=== PATIENT | female | born 1990 | race Caucasian/White ===

== ENCOUNTER 2016-06-04 09:51 | Emergency (ER) | payer OTHER ==
[2016-06-04] MEDS ORDERED: BENZOCAIN/BENZALKONM ORAL GEL 12 GM TUBE MM PRN (10:17)
[2016-06-04] MEDS ORDERED: TRIAMCINOLONE ACET 0.1% ORAL PASTE 5 GM TUBE MUCOUS MEM STA (10:19)
--- NOTE | 2016-06-04 10:24 | ED ---
ENT HPI - General Chief complaint: Dental/Oral Stated complaint: tounge swollen Time Seen by Provider: 06/04/16 10:08 Source: patient Mode of arrival: ambulatory Limitations: no limitations - History of Present Illness Initial comments: This is a 25-year-old female with a history of methamphetamine abuse who presents emergency department for tongue pain and swelling. She states that the last time she used meth was last night. She states that the pain in her tongue hurts mostly on the right side and radiates down to the back of her throat. She states that she's had this once before however did not seek any medical treatment went away on its own. Patient denies any fevers or chills. No difficulty with swallowing. No shortness of breath. She complains mostly of pain in her mouth. No other complaints. - Related Data Home Medications Medication Instructions Recorded Confirmed diphenhydrAMINE [Benadryl] 50 mg PO HS PRN 03/13/16 06/04/16 Previous Rx's Medication Instructions Recorded HYDROcodone/APAP 5-325MG [[place] 1 tab PO Q6HR PRN #15 tab 06/04/16 5-325] Triamcinolone 0.1% Paste [Oralone 1 applic MUCOUS MEM PC-TID #30 gm 06/04/16 0.1% Paste] Allergies Allergy/AdvReac Type Severity Reaction Status Date / Time Penicillins Allergy Unknown Verified 06/04/16 10:18 Childhood sulfamethoxazole Allergy Unknown Verified 06/04/16 10:18 [From Bactrim] Childhood trimethoprim [From Bactrim] Allergy Unknown Verified 06/04/16 10:18 Childhood Review of Systems ROS Statement: Those systems with pertinent positive or pertinent negative responses have been documented in the HPI. ROS Other: All systems not noted in ROS Statement are negative. Past Medical History Additional Past Medical History / Comment(s): migraine, hives, sinus problems History of Any Multi-Drug Resistant Organisms: None Reported Past Surgical History: Cholecystectomy Past Psychological History: Anxiety Smoking Status: Current every day smoker Past Alcohol Use History: Occasional Past Drug Use History: Methamphetamine General Exam - General Exam Comments Initial Comments: Constitutional: Awake alert Appears comfortable Head: Normocephalic atraumatic Eyes: no conjunctival injection No scleral icterus EOMI ENT: The patient has some mild swelling of her tongue. Oropharynx is patent and without any swelling. There are 2 or 3 at this ulcer is on the right side of her tongue. No other lesions are seen throughout her oral pharynx, TMs are clear bilaterally Neck: No JVD Supple Heart: Regular rate rhythm normal S1-S2 no murmurs Lungs: Clear to auscultation bilaterally No wheezing No rales Abdomen: Soft nondistended nontender Extremities: Non edematous DP pulses intact Radial pulses intact Neuro: A&Ox3 No focal neurologic deficits Psych: Appropriate mood and affect Limitations: no limitations Course Vital Signs 06/04/16 10:04 Temperature 98.3 F Pulse Rate 84 Respiratory 18 Rate Blood Pressure 134/80 O2 Sat by Pulse 99 Oximetry Medical Decision Making - Medical Decision Making Patient presented for mouth pain. She has multiple aphthous ulcers and stomatitis. She was given cool solution and Trental cream emergency department. She had minimal improvement. She was given Toradol. She then was going to be given morphine however her family was not here and she rides and thus I told her that we needed to wait. She became very upset. I told her that if she waited for a ride caregiver to her. She called her friend mother who is going to pick her up. Otherwise nothing else to do. I advised the patient to stop doing meth and follow-up with her primary doctor. She'll return if she has worsening symptoms. She'll be sent home with pain medication , steroid cream, and Magic mouthwash. Disposition Clinical Impression: Stomatitis, Methamphetamine abuse Disposition: HOME SELF-CARE Condition: Stable Instructions: Canker Sores (ED), Gingivostomatitis (ED) Prescriptions: HYDROcodone/APAP 5-325MG [[place] 5-325] 1 tab PO Q6HR PRN #15 tab PRN Reason: Pain Triamcinolone 0.1% Paste [Oralone 0.1% Paste] 1 applic MUCOUS MEM PC-TID #30 gm Referrals: Davie Garza DO [Primary Care Provider] - 1-2 days
[2016-06-04] MEDS ORDERED: MAG HYDROX/AL HYDROX/SIMETH 30 ML, diphenhydrAMINE ELIXIR 75 MG, LIDOCAINE VISCOUS 30 ML PO STA ×3 (10:28)
[2016-06-04] MEDS ORDERED: MORPHINE SULFATE 10 MG/ML SYRINGE IM STA (11:16)
[2016-06-04] MEDS ORDERED: KETOROLAC 30 MG/ML 1 ML VIAL IM STA (11:16)
[2016-06-04] MEDS ORDERED: MORPHINE SULFATE 4 MG/ML SYRINGE IM STA (11:45)
[2016-06-04 12:40] VITALS: BP 113/80; PULSE 68; RESP 16; TEMP 97.3
== END 2016-06-04 12:40 | disposition home or self-care (01) ==
LOC: EC 09:51
DX: K12.1 Other forms of stomatitis (principal); K12.0 Recurrent oral aphthae; F15.10 Other stimulant abuse, uncomplicated; F17.200 Nicotine dependence, unspecified, uncomplicated; Z88.1 Allergy status to other antibiotic agents; Z88.0 Allergy status to penicillin; Z88.2 Allergy status to sulfonamides
CPT/HCPCS: 99283; 96372; J2270; J1885

== ENCOUNTER 2016-09-27 20:03 | Emergency (ER) | payer OTHER ==
[2016-09-27 20:10] VITALS: BP 112/64; PULSE 80; RESP 18; TEMP 98.3
--- NOTE | 2016-09-27 20:50 | ED ---
General Adult HPI - General Chief complaint: Fall Stated complaint: abdominal pain/12 wks preg Time Seen by Provider: 09/27/16 20:25 Source: patient, RN notes reviewed, old records reviewed Mode of arrival: ambulatory Limitations: no limitations - History of Present Illness Initial comments: Chief complaint history of present illness this is a 25-year-old female whose here because yesterday while reaching into a high cupboard chief fell approximately 6 inches and bumped her abdomen. She is 12 weeks . She is not complaining of any significant discomfort there is no vaginal bleeding. No other problems. - Related Data Home Medications Medication Instructions Recorded Confirmed diphenhydrAMINE [Benadryl] 50 mg PO HS PRN 03/13/16 06/04/16 Previous Rx's Medication Instructions Recorded HYDROcodone/APAP 5-325MG [[place] 1 tab PO Q6HR PRN #15 tab 06/04/16 5-325] Triamcinolone 0.1% Paste [Oralone 1 applic MUCOUS MEM PC-TID #30 gm 06/04/16 0.1% Paste] Allergies Allergy/AdvReac Type Severity Reaction Status Date / Time Penicillins Allergy Unknown Verified 09/27/16 20:06 Childhood sulfamethoxazole Allergy Unknown Verified 09/27/16 20:06 [From Bactrim] Childhood trimethoprim [From Bactrim] Allergy Unknown Verified 09/27/16 20:06 Childhood Review of Systems ROS Statement: Those systems with pertinent positive or pertinent negative responses have been documented in the HPI. Review of systems no headache chest pain shortness breath GI/ problems. All systems are reviewed. Past medical problems significant for migraines, idiopathic hives. Continues to use marijuana. Has done methamphetamine up until proximal one year ago but still has relapses. Strongly encouraged not to do that while . Patient surgeries cholecystectomy, sinus and one as well as adenoids. She's also had ear tubes. Family history significant for grandfather bladder cancer mother had uterine cancer. Other medical problems include diabetes. She has ALLERGIES to penicillin and sulfa. She does smoke strongly encouraged to stop while and thereafter. Denies alcohol use. ROS Other: All systems not noted in ROS Statement are negative. Past Medical History Additional Past Medical History / Comment(s): migraine, hives, sinus problems History of Any Multi-Drug Resistant Organisms: None Reported Past Surgical History: Cholecystectomy Past Psychological History: Anxiety Smoking Status: Current every day smoker Past Alcohol Use History: Occasional Past Drug Use History: Marijuana, Methamphetamine General Exam - General Exam Comments Initial Comments: General: The patient is awake and alert, in no distress, and does not appear acutely ill. Vital signs shows temperature 98.3 pulse 80 respiratory rate 18 pulse ox 99% room air blood pressure 112/64 Eye: Pupils are equal, round and reactive to light, extra-ocular movements are intact ; there is normal conjunctiva bilaterally. No signs of icterus. Ears, nose, mouth and throat: There are moist mucous membranes Neck: No neck pain, full range of motion. Cardiovascular: There is a regular rate and rhythm. No murmur, rub or gallop is appreciated. Respiratory: Lungs are clear to auscultation, respirations are non-labored, breath sounds are equal. No wheezes, stridor, rales, or rhonchi. Gastrointestinal: Soft, non-distended, non-tender abdomen without masses or organomegaly noted. There is no rebound or guarding present. No CVA tenderness. Bowel sounds are unremarkable. Back: No back pain with movement. Musculoskeletal: All extremities within normal limits. No numbness no tingling no deficits. Neurological: Cranial nerves II through XII are intact. Skin: Several bruises nonspecific. Limitations: no limitations Course Vital Signs 09/27/16 20:06 Temperature 98.3 F Pulse Rate 80 Respiratory 18 Rate Blood Pressure 112/64 O2 Sat by Pulse 99 Oximetry Medical Decision Making - Medical Decision Making Medical decision-making. The patient does not have any abdominal pain. She does not have any lower abdominal cramping. There is not been any vaginal bleeding. She did have an ultrasound [facility] soon after she found out she was and everything both normal bedtime. At this time the patient will be told to follow-up with her OB she's been assigned. Tylenol for pain. Return emergency room if she has cramping or bleeding. Disposition Clinical Impression: First trimester Disposition: HOME SELF-CARE Condition: Good Instructions: First Trimester (ED) Additional Instructions: Take Tylenol for pain. Follow-up with your family physician, OB. Return emergency room if he have lower abdominal cramping or vaginal bleeding. Referrals: Davie Garza DO [Primary Care Provider] - 1-2 days Time of Disposition: 20:50
== END 2016-09-27 21:00 | disposition home or self-care (01) ==
LOC: EC 20:03
DX: O99.89 Other specified diseases and conditions complicating pregnancy, childbirth and the puerperium (principal); R10.9 Unspecified abdominal pain; Z3A.12 12 weeks gestation of pregnancy; F17.200 Nicotine dependence, unspecified, uncomplicated; Z88.0 Allergy status to penicillin; Z88.2 Allergy status to sulfonamides; W01.0XXA Fall on same level from slipping, tripping and stumbling without subsequent striking against object, initial encounter
CPT/HCPCS: 99284

== ENCOUNTER → 2017-05-19 | Outpatient (CLI) | payer OTHER ==
[2017-05-19 10:51] LABS: INR 1.1 (<1.2); Prothrombin Time 10.9 sec (9.0-12.0)
[2017-05-19 11:04] LABS: Albumin 4.8 g/dL (3.5-5.0); Bilirubin, Delta 0.4 mg/dL (0.0-0.2); Bilirubin,Unconjugated 0.1 mg/dL (0.0-1.1); Total Bilirubin 0.5 mg/dL (0.2-1.3); Total Protein 9.1 g/dL (6.3-8.2)
[2017-05-19 11:19] LABS: Basophils # (A) 0.1 k/uL (0-0.2); Basophils % (A) 1 %; Eosinophils # (A) 0.5 k/uL (0-0.7); Eosinophils % (A) 5 %; HCT 40.6 % (34.0-46.0); HGB 12.8 gm/dL (11.4-16.0); Lymphocytes # (A) 3.9 k/uL (1.0-4.8); Lymphocytes % (A) 38 %; MCH 27.8 pg (25.0-35.0); MCHC 31.4 g/dL (31.0-37.0); MCV 88.4 fL (80.0-100.0); Mean Platelet Volume 6.6; Monocytes # (A) 0.5 k/uL (0-1.0); Monocytes % (A) 5 %; Neutrophils # (A) 5.1 k/uL (1.3-7.7); Neutrophils % (A) 50 %; Platelet Count 441 k/uL (150-450); RBC 4.59 m/uL (3.80-5.40); RDW 15.2 % (11.5-15.5); WBC 10.4 k/uL (3.8-10.6)
[2017-05-20 16:27] LABS: HCV Quant Log <1.08 (<1.08); HCV Quantitative Result <12 IU/mL (<12)
== END | disposition home or self-care (01) ==
LOC: LABWHC1 10:11
PROVIDERS: ATTEND Physician Assistant
DX: B18.2 Chronic viral hepatitis C (principal)
CPT/HCPCS: 36415; 80076; 85025; 85610; 86708; 87522

== ENCOUNTER → 2017-06-10 | Outpatient (CLI) | payer OTHER ==
--- NOTE | 2017-06-10 07:58 | US ---
EXAMINATION TYPE: US liver DATE OF EXAM: 06/10/2017 COMPARISON: NONE CLINICAL HISTORY: B18.2 Chronic viral hep c. no complaints of pain EXAM MEASUREMENTS: Liver Length: 17.4 cm CBD: 0.4cm Right Kidney: 11.5 x 4.4 x 5.8 cm Pancreas: wnl Liver: upper limits in size, 1.6 x 0.7 x 0.9cm hypoechoic solid tissue or mass with the left lobe. Appropriate flow with the portal vein. Gallbladder: Surgically absent CBD: wnl Right Kidney: wnl IMPRESSION: 1. Findings suspicious for left lobe liver lesion which could be or adequately evaluated with CT scan with contrast.
== END | disposition home or self-care (01) ==
LOC: RADUSWWP 07:30
DX: B18.2 Chronic viral hepatitis C (principal)
CPT/HCPCS: 76705

== ENCOUNTER 2017-11-15 14:12 | Inpatient (IN) | payer MEDICAID, OTHER ==
[2017-11-15] MEDS ORDERED: ALPRAZolam 1 MG TAB PO STA (14:52)
--- NOTE | 2017-11-15 14:52 | ED ---
General Adult HPI - General Chief complaint: Psychiatric Symptoms Stated complaint: Mental Health Source: patient Mode of arrival: ambulatory Limitations: no limitations - History of Present Illness Initial comments: Dictation was produced using [employer] dictation software. please excuse any grammatical, word or spelling errors. Chief Complaint: 19-year-old female brought in by petition from the mother for mental illness and suicidal ideation. History of Present Illness: Patient was signed by mother for suicidal ideation. Patient states she does not feel actively suicidal at this time. States that sometimes she wants to commit suicide but not having any thoughts of suicidal ideation at this time. Patient states she would either overdose or cut her wrist. Denies any homicidal ideation. Denies any visual or auditory hallucinations. Patient is an active illicit drug abuser. Last use of methamphetamines was earlier today. The ROS documented in this emergency department record has been reviewed and confirmed by me. Those systems with pertinent positive or negative responses have been documented in the HPI. All other systems are other negative and/or noncontributory. - Related Data Home Medications Medication Instructions Recorded Confirmed Etonogestrel [Nexplanon] 68 mg SQ ONCE 11/15/17 11/15/17 Allergies Allergy/AdvReac Type Severity Reaction Status Date / Time Penicillins Allergy Unknown Verified 11/16/17 17:40 Childhood sulfamethoxazole Allergy Unknown Verified 11/16/17 17:40 [From Bactrim] Childhood trimethoprim [From Bactrim] Allergy Unknown Verified 11/16/17 17:40 Childhood Review of Systems ROS Statement: Those systems with pertinent positive or pertinent negative responses have been documented in the HPI. ROS Other: All systems not noted in ROS Statement are negative. Past Medical History Past Medical History: Liver Disease Additional Past Medical History / Comment(s): migraine, hives, sinus problems, hepatitis A and C, 2 spontaneous vaginal deliveries History of Any Multi-Drug Resistant Organisms: None Reported Past Surgical History: Cholecystectomy Past Anesthesia/Blood Transfusion Reactions: No Reported Reaction Past Psychological History: Anxiety, Depression Smoking Status: Current every day smoker Past Alcohol Use History: Occasional Past Drug Use History: Heroin, Marijuana, Methamphetamine, Prescription Drug Abuse - Past Family History Father Family Medical History: Unable to Obtain Mother Family Medical History: Cancer General Exam - General Exam Comments Initial Comments: PHYSICAL EXAM: General Impression: Alert and oriented x3, not in acute distress HEENT: Normocephalic atraumatic, extra-ocular movements intact, pupils equal and reactive to light bilaterally, mucous membranes moist. Cardiovascular: Heart regular rate and rhythm, S1&S2 audible, no murmurs, rubs or gallops Chest: Lungs clear to auscultation bilaterally, no rhonchi, no wheeze, no rales Abdomen: Bowel sounds present, abdomen soft, non-tender, non-distended, no organomegaly Musculoskeletal: Pulses present and equal in all extremities, no peripheral edema Motor: Power 5/5 bilaterally, no focal deficits noted Neurological: CN II-XII grossly intact, no focal motor or sensory deficits noted Skin: Intact with no visualized rashes Psych: Agitated, poor eye contact Limitations: no limitations Course Vital Signs 11/15/17 11/15/17 11/15/17 14:13 18:12 21:44 Temperature 98.1 F Pulse Rate 114 H 98 Respiratory 20 16 15 Rate Blood Pressure 115/73 119/79 O2 Sat by Pulse 97 98 Oximetry 11/16/17 07:28 Temperature 99.2 F Pulse Rate 70 Respiratory 18 Rate Blood Pressure 101/59 O2 Sat by Pulse 94 L Oximetry Medical Decision Making - Medical Decision Making ED course: 27-year-old female past medical history of depression, anxiety and illicit drug use presents for petition for suicidal ideation. Signs upon arrival shows heart rate of 114, pulse vital signs within normal limits. She appears mildly agitated.Rapid urine drug screen obtained. Patient' s positive for amphetamines, methamphetamine, benzodiazepines and marijuana. Patient appears stable at this time. She does appear mildly psychotic however she is medically cleared for EPS evaluation. Pending EPS recommendations. EPS evaluated patient and recommended inpatient transfer to psychiatric facility. - Lab Data Result diagrams: 11/15/17 17:08 11/15/17 17:08 Lab Results 11/15/17 11/15/17 11/15/17 Range/Units 14:05 14:05 14:05 WBC (3.8-10.6) k/uL RBC (3.80-5.40) m/uL Hgb (11.4-16.0) gm/dL Hct (34.0-46.0) % MCV (80.0-100.0) fL MCH (25.0-35.0) pg MCHC (31.0-37.0) g/dL RDW (11.5-15.5) % Plt Count (150-450) k/uL Neutrophils % % Lymphocytes % % Monocytes % % Eosinophils % % Basophils % % Neutrophils # (1.3-7.7) k/uL Lymphocytes # (1.0-4.8) k/uL Monocytes # (0-1.0) k/uL Eosinophils # (0-0.7) k/uL Basophils # (0-0.2) k/uL Sodium (137-145) mmol/L Potassium (3.5-5.1) mmol/L Chloride (98-107) mmol/L Carbon Dioxide (22-30) mmol/L Anion Gap mmol/L BUN (7-17) mg/dL Creatinine (0.52-1.04) mg/dL Est GFR (CKD-EPI)AfAm (>60 ml/min/1.73 sqM) Est GFR (CKD-EPI)NonAf (>60 ml/min/1.73 sqM) Glucose (74-99) mg/dL Estimated Ave Glu mg/dL Hemoglobin A1c (4.0-6.0) % Calcium (8.4-10.2) mg/dL AST (14-36) U/L ALT (9-52) U/L Triglycerides (<150) mg/dL Cholesterol (<200) mg/dL LDL Cholesterol, Calc (0-99) mg/dL HDL Cholesterol (40-60) mg/dL TSH (0.465-4.680) mIU/L Urine Color Yellow Urine Appearance Cloudy H (Clear) Urine pH 5.5 (5.0-8.0) Ur Specific [place] 1.025 (1.001-1.035) Urine Protein Trace H (Negative) Urine Glucose (UA) Negative (Negative) Urine Ketones Trace H (Negative) Urine Blood Negative (Negative) Urine Nitrite Negative (Negative) Urine Bilirubin Negative (Negative) Urine Urobilinogen 2.0 (<2.0) mg/dL Ur Leukocyte Esterase Small H (Negative) Urine RBC 7 H (0-5) /hpf Urine WBC 9 H (0-5) /hpf Ur Squamous Epith Cells 18 H (0-4) /hpf Urine Bacteria Rare H (None) /hpf Urine Mucus Few H (None) /hpf Urine HCG, Qual Not Detected (Not Detectd) Urine Opiates Screen Not Detected (NotDetected) Ur Oxycodone Screen Not Detected (NotDetected) Urine Methadone Screen Not Detected (NotDetected) Ur Propoxyphene Screen Not Detected (NotDetected) Ur Barbiturates Screen Not Detected (NotDetected) U Tricyclic Antidepress Not Detected (NotDetected) Ur Phencyclidine Scrn Not Detected (NotDetected) Ur Amphetamines Screen Detected H (NotDetected) U Methamphetamines Scrn Detected H (NotDetected) U Benzodiazepines Scrn Detected H (NotDetected) Urine Cocaine Screen Not Detected (NotDetected) U Marijuana (THC) Screen Detected H (NotDetected) 11/15/17 11/15/17 11/15/17 Range/Units 17:08 17:08 17:08 WBC 9.0 (3.8-10.6) k/uL RBC 4.60 (3.80-5.40) m/uL Hgb 13.4 (11.4-16.0) gm/dL Hct 40.1 (34.0-46.0) % MCV 87.1 (80.0-100.0) fL MCH 29.0 (25.0-35.0) pg MCHC 33.3 (31.0-37.0) g/dL RDW 13.2 (11.5-15.5) % Plt Count 261 (150-450) k/uL Neutrophils % 45 % Lymphocytes % 41 % Monocytes % 6 % Eosinophils % 4 % Basophils % 1 % Neutrophils # 4.1 (1.3-7.7) k/uL Lymphocytes # 3.7 (1.0-4.8) k/uL Monocytes # 0.5 (0-1.0) k/uL Eosinophils # 0.3 (0-0.7) k/uL Basophils # 0.1 (0-0.2) k/uL Sodium 140 (137-145) mmol/L Potassium 3.5 (3.5-5.1) mmol/L Chloride 104 (98-107) mmol/L Carbon Dioxide 27 (22-30) mmol/L Anion Gap 9 mmol/L BUN 14 (7-17) mg/dL Creatinine 0.73 (0.52-1.04) mg/dL Est GFR (CKD-EPI)AfAm >90 (>60 ml/min/1.73 sqM) Est GFR (CKD-EPI)NonAf >90 (>60 ml/min/1.73 sqM) Glucose 104 H (74-99) mg/dL Estimated Ave Glu mg/dL 111 Hemoglobin A1c 5.5 (4.0-6.0) % Calcium 9.4 (8.4-10.2) mg/dL AST (14-36) U/L ALT (9-52) U/L Triglycerides (<150) mg/dL Cholesterol (<200) mg/dL LDL Cholesterol, Calc (0-99) mg/dL HDL Cholesterol (40-60) mg/dL TSH (0.465-4.680) mIU/L Urine Color Urine Appearance (Clear) Urine pH (5.0-8.0) Ur Specific [place] (1.001-1.035) Urine Protein (Negative) Urine Glucose (UA) (Negative) Urine Ketones (Negative) Urine Blood (Negative) Urine Nitrite (Negative) Urine Bilirubin (Negative) Urine Urobilinogen (<2.0) mg/dL Ur Leukocyte Esterase (Negative) Urine RBC (0-5) /hpf Urine WBC (0-5) /hpf Ur Squamous Epith Cells (0-4) /hpf Urine Bacteria (None) /hpf Urine Mucus (None) /hpf Urine HCG, Qual (Not Detectd) Urine Opiates Screen (NotDetected) Ur Oxycodone Screen (NotDetected) Urine Methadone Screen (NotDetected) Ur Propoxyphene Screen (NotDetected) Ur Barbiturates Screen (NotDetected) U Tricyclic Antidepress (NotDetected) Ur Phencyclidine Scrn (NotDetected) Ur Amphetamines Screen (NotDetected) U Methamphetamines Scrn (NotDetected) U Benzodiazepines Scrn (NotDetected) Urine Cocaine Screen (NotDetected) U Marijuana (THC) Screen (NotDetected) 11/15/17 11/15/17 Range/Units 17:08 17:08 WBC (3.8-10.6) k/uL RBC (3.80-5.40) m/uL Hgb (11.4-16.0) gm/dL Hct (34.0-46.0) % MCV (80.0-100.0) fL MCH (25.0-35.0) pg MCHC (31.0-37.0) g/dL RDW (11.5-15.5) % Plt Count (150-450) k/uL Neutrophils % % Lymphocytes % % Monocytes % % Eosinophils % % Basophils % % Neutrophils # (1.3-7.7) k/uL Lymphocytes # (1.0-4.8) k/uL Monocytes # (0-1.0) k/uL Eosinophils # (0-0.7) k/uL Basophils # (0-0.2) k/uL Sodium (137-145) mmol/L Potassium (3.5-5.1) mmol/L Chloride (98-107) mmol/L Carbon Dioxide (22-30) mmol/L Anion Gap mmol/L BUN (7-17) mg/dL Creatinine (0.52-1.04) mg/dL Est GFR (CKD-EPI)AfAm (>60 ml/min/1.73 sqM) Est GFR (CKD-EPI)NonAf (>60 ml/min/1.73 sqM) Glucose (74-99) mg/dL Estimated Ave Glu mg/dL Hemoglobin A1c (4.0-6.0) % Calcium (8.4-10.2) mg/dL AST 32 (14-36) U/L ALT 54 H (9-52) U/L Triglycerides 64 (<150) mg/dL Cholesterol 137 (<200) mg/dL LDL Cholesterol, Calc 66 (0-99) mg/dL HDL Cholesterol 58 (40-60) mg/dL TSH 0.973 (0.465-4.680) mIU/L Urine Color Urine Appearance (Clear) Urine pH (5.0-8.0) Ur Specific [place] (1.001-1.035) Urine Protein (Negative) Urine Glucose (UA) (Negative) Urine Ketones (Negative) Urine Blood (Negative) Urine Nitrite (Negative) Urine Bilirubin (Negative) Urine Urobilinogen (<2.0) mg/dL Ur Leukocyte Esterase (Negative) Urine RBC (0-5) /hpf Urine WBC (0-5) /hpf Ur Squamous Epith Cells (0-4) /hpf Urine Bacteria (None) /hpf Urine Mucus (None) /hpf Urine HCG, Qual (Not Detectd) Urine Opiates Screen (NotDetected) Ur Oxycodone Screen (NotDetected) Urine Methadone Screen (NotDetected) Ur Propoxyphene Screen (NotDetected) Ur Barbiturates Screen (NotDetected) U Tricyclic Antidepress (NotDetected) Ur Phencyclidine Scrn (NotDetected) Ur Amphetamines Screen (NotDetected) U Methamphetamines Scrn (NotDetected) U Benzodiazepines Scrn (NotDetected) Urine Cocaine Screen (NotDetected) U Marijuana (THC) Screen (NotDetected) Disposition Clinical Impression: Acute anxiety Disposition: TRANSFER TO PSYCH HOSP/UNIT Condition: Fair Time of Disposition: 06:55 - Out of Hospital Transfer - Req. Specs Out of Hospital Transfer - Requested Specifics: Psychiatric Non-ICU
[2017-11-15 15:02] LABS: Amphetamine Screen,Urine Detected (NotDetected); Barbiturate Screen,Urine Not Detected (NotDetected); Benzodiazepines Screen,Urine Detected (NotDetected); Cocaine Screen,Urine Not Detected (NotDetected); Methadone Screen, Urine Not Detected (NotDetected); Opiate Screen,Urine Not Detected (NotDetected); Oxycodone Screen, Urine Not Detected (NotDetected); Phencyclidine Screen,Urine Not Detected (NotDetected); Tricyclic Antidepressant,Urine Not Detected (NotDetected); Urn Cannabinoid Scrn Detected (NotDetected)
[2017-11-15 17:17] LABS: Basophils # (A) 0.1 k/uL (0-0.2); Basophils % (A) 1 %; Eosinophils # (A) 0.3 k/uL (0-0.7); Eosinophils % (A) 4 %; HCT 40.1 % (34.0-46.0); HGB 13.4 gm/dL (11.4-16.0); Lymphocytes # (A) 3.7 k/uL (1.0-4.8); Lymphocytes % (A) 41 %; MCHC 33.3 g/dL (31.0-37.0); MCV 87.1 fL (80.0-100.0); Mean Platelet Volume 6.7; Monocytes # (A) 0.5 k/uL (0-1.0); Monocytes % (A) 6 %; Neutrophils # (A) 4.1 k/uL (1.3-7.7); Neutrophils % (A) 45 %; Platelet Count 261 k/uL (150-450); RDW 13.2 % (11.5-15.5)
[2017-11-15 17:21] LABS: Appearance,Urine Cloudy (Clear); Bacteria,Urine Rare /hpf; Bilirubin,Urine Negative (Negative); Blood,Urine Negative (Negative); Color,Urine Yellow; Glucose,Urine (UA) Negative (Negative); Ketones,Urine Trace (Negative); Leukocyte Esterase,Urine Small (Negative); Mucus,Urine Few /hpf; Nitrite,Urine Negative (Negative); PH, Urine 5.5 (5.0-8.0); Protein,Urine Trace (Negative); RBC,Urine 7 /hpf (0-5); Specific Gravity,Urine 1.025 (1.001-1.035); Squamous Epithelial Cell,Urine 18 /hpf (0-4); WBC,Urine 9 /hpf (0-5)
[2017-11-15 17:27] LABS: Anion Gap 9 mmol/L; Blood Urea Nitrogen 14 mg/dL (7-17); Calcium 9.4 mg/dL (8.4-10.2); Carbon Dioxide 27 mmol/L (22-30); Chloride 104 mmol/L (98-107); Glucose 104 mg/dL (74-99); Potassium 3.5 mmol/L (3.5-5.1); Sodium 140 mmol/L (137-145)
[2017-11-16] MEDS ORDERED: ALPRAZolam 1 MG TAB PO STA (07:53)
[2017-11-16] MEDS ORDERED: NICOTINE 21MG/24HR PATCH TRANSDERM STA (13:11)
[2017-11-16] MEDS ORDERED: ZIPRASIDONE 20 MG VIAL IM PRN (17:07)
[2017-11-16] MEDS ORDERED: MAGNESIUM HYDROXIDE 2,400 MG/10 ML CUP PO PRN (17:07)
[2017-11-16] MEDS ORDERED: MAG HYDROX/AL HYDROX/SIMETH 30 ML CUP PO PRN (17:07)
[2017-11-16] MEDS ORDERED: ETONOGESTREL 68 MG SQ SCH (17:15)
[2017-11-16 17:40] VITALS: BMI 26.6
[2017-11-16] MEDS: LORazepam 1 MG TAB PO PRN (18:05)
[2017-11-16 20:19] LABS: Appearance,Urine Cloudy (Clear); Bacteria,Urine Rare /hpf; Bilirubin,Urine Negative (Negative); Blood,Urine Negative (Negative); Color,Urine Yellow; Glucose,Urine (UA) Negative (Negative); Ketones,Urine Negative (Negative); Leukocyte Esterase,Urine Moderate (Negative); Mucus,Urine Rare /hpf; Nitrite,Urine Negative (Negative); PH, Urine 7.5 (5.0-8.0); Protein,Urine Negative (Negative); RBC,Urine 1 /hpf (0-5); Specific Gravity,Urine 1.017 (1.001-1.035); Squamous Epithelial Cell,Urine 15 /hpf (0-4); WBC,Urine 3 /hpf (0-5)
[2017-11-16] MEDS ORDERED: hydrOXYzine PAMOATE 25 MG CAP PO STA (20:38)
[2017-11-17] MEDS: ACETAMINOPHEN TAB 325 MG TAB PO PRN (04:16)
[2017-11-17] MEDS: LORazepam 1 MG TAB PO PRN ×3 (06:01→21:01)
[2017-11-17] MEDS: NICOTINE 21MG/24HR PATCH TRANSDERM SCH (09:01)
[2017-11-17 12:12] LABS: Hemoglobin A1C 5.5 % (4.0-6.0)
[2017-11-17 12:57] LABS: ALT 54 U/L (9-52); AST 32 U/L (14-36)
[2017-11-17] MEDS: hydrOXYzine PAMOATE 25 MG CAP PO PRN ×2 (13:04→21:01)
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
[2017-11-17] MEDS: QUEtiapine 50 MG TAB PO SCH (21:01)
[2017-11-18] MEDS: ACETAMINOPHEN TAB 325 MG TAB PO PRN ×2 (01:29→12:54)
[2017-11-18] MEDS: LORazepam 1 MG TAB PO PRN ×2 (08:57→18:31)
[2017-11-18] MEDS: NICOTINE 21MG/24HR PATCH TRANSDERM SCH (08:58)
--- NOTE | 2017-11-18 10:17 | P.PN ---
Progress Note - Text Interval history: The patient is found in her room she follows me to an interview room. She states she feels very irritable and upset. She states the staff are deliberately not telling her when she has a placement date for rehab. I reviewed the process with her and assured her we would not withhold that information. She remained agitated and terminated the session early. Mental status exam: The patient is alert she is irritable she is demonstrating a labile affect. She was tearful throughout the session. She makes statements that we are pushing her around and withholding information. She is reporting no acute suicidal ideation but becomes tearful when asked that question. Insight and judgment impaired. She is endorsing no auditory or visual hallucinations. She demonstrates no physical aggressiveness. She demonstrates no abnormal involuntary movements. Again the session was truncated due to her limited cooperation. Plan: The patient will continue on the Seroquel at bedtime I will add Depakote ER 1000 mg at bedtime to address her bipolar disorder. We discussed that this medication does have treaded genic effects if . She is on control medication and states she has no intent on becoming . She has no questions or concerns regarding the Depakote. We will monitor her for safety and encourage her participation in the milieu. We will discuss her placement date for inpatient chemical dependency treatment with social work.
[2017-11-18] MEDS: hydrOXYzine PAMOATE 25 MG CAP PO PRN ×2 (12:55→20:42)
[2017-11-18] MEDS: DIVALPROEX ER 500 MG TAB.ER.24H PO SCH (20:13)
[2017-11-18] MEDS: QUEtiapine 50 MG TAB PO SCH (20:13)
[2017-11-19] MEDS: NICOTINE 21MG/24HR PATCH TRANSDERM SCH (08:25)
[2017-11-19] MEDS: ACETAMINOPHEN TAB 325 MG TAB PO PRN ×2 (08:25→13:29)
[2017-11-19] MEDS: LORazepam 1 MG TAB PO PRN ×2 (08:25→19:56)
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
[2017-11-19] MEDS: hydrOXYzine PAMOATE 25 MG CAP PO PRN ×2 (13:29→20:44)
[2017-11-19] MEDS: QUEtiapine 100 MG TAB PO SCH (19:56)
[2017-11-19] MEDS: DIVALPROEX ER 500 MG TAB.ER.24H PO SCH (19:56)
[2017-11-20] MEDS: LORazepam 1 MG TAB PO PRN ×2 (08:11→18:45)
[2017-11-20] MEDS: NICOTINE 21MG/24HR PATCH TRANSDERM SCH (08:11)
[2017-11-20] MEDS: ACETAMINOPHEN TAB 325 MG TAB PO PRN ×2 (08:11→12:38)
--- NOTE | 2017-11-20 10:08 | P.PN ---
Progress Note - Text Interval history: The patient's is found in her room she follows me to an interview room. She states she's been attending groups but I have not observed that activity so far today. She describes sleeping last night staff recorded 5 hours. She states she did eat breakfast this morning. She is demanding to be discharged today. He discussed that her mood is not sufficiently stabilized and I would like to be able to draw a Depakote level and liver function. Becomes agitated with this news. Obviously it is also in her best interest to go to inpatient chemical dependency treatment directly from here. The patient accuses me of intentionally trying to upset her. She reports there is nothing to do here and I'm just trying to get her to take pills. The session was terminated due to her agitation. Mental status exam: The patient is alert she has a disheveled appearance she is dressed in her own clothing. Eye contact is intermittent. She describes a frustrated and angry mood. She frequently uses profanity during the session. She makes accusations statements that seem persecutory in nature. It does not appear that she is experiencing overt delusions however. She is reporting no suicidal thoughts but quickly provides negative responses to questions in an attempt to facilitate a discharge today. Insight and judgment are impaired. She demonstrated no physical aggressiveness. She demonstrates no abnormal involuntary movements. Plan: The patient will continue on her current medications. I will order a Depakote level and liver enzymes for Thursday morning. She is not sufficiently stabilized in terms of mood. I am hoping that she will be by Thursday so that she will be able to attend inpatient chemical dependency treatment at [facility]. We will monitor her for safety and encourage her participation in the milieu.
[2017-11-20] MEDS: hydrOXYzine PAMOATE 25 MG CAP PO PRN ×2 (12:38→20:41)
[2017-11-20] MEDS: QUEtiapine 100 MG TAB PO SCH (20:02)
[2017-11-20] MEDS: DIVALPROEX ER 500 MG TAB.ER.24H PO SCH (20:02)
[2017-11-21] MEDS: LORazepam 1 MG TAB PO PRN ×2 (09:01→21:11)
[2017-11-21] MEDS: NICOTINE 21MG/24HR PATCH TRANSDERM SCH (09:01)
[2017-11-21] MEDS: ACETAMINOPHEN TAB 325 MG TAB PO PRN (09:02)
[2017-11-21] MEDS: hydrOXYzine PAMOATE 25 MG CAP PO PRN ×2 (11:49→20:50)
[2017-11-21] MEDS ORDERED: LORazepam 1 MG TAB PO STA (13:40)
--- NOTE | 2017-11-21 14:53 | P.PN ---
Progress Note - Text Progress Note Date: 11/21/17 Patient reports feeling bored and says she feels trapped in here. She was crying during the interview and states she wants to home and be with her grandparents. She reports feeling upset about not being able to smoke cigarettes. She states nicotine patch is not helping her. She is scheduled to go to rehab center on Thursday morning, but says she does not want to be in the hospital until then. Patients mother who has the custody of her children wants patient to go to the rehab center directly from the hospital. Patient was informed about her mothers concern and about her need to regain the custody of her children. Patient expressed her understanding and willingness to comply. Patient is 27 year old woman. She is slightly obese. Appears in fair grooming and hygiene. She maintains intermittent eye contact. No abnormal movements noted. Her speech and thought process are goal directed. Her mood was tearful and upset. Her affect was appropriate. She denies current auditory or visual hallucinations She denies paranoia. She is alert and oriented X 4. Her insight and judgment are improving. Continue her current medications Monitor for symptoms If stable patient will be discharged on thursday to Attend inpatient chemical dependency treatment at [facility].
[2017-11-21] MEDS: QUEtiapine 100 MG TAB PO SCH (20:49)
[2017-11-21] MEDS: DIVALPROEX ER 500 MG TAB.ER.24H PO SCH (20:50)
[2017-11-22] MEDS: NICOTINE 21MG/24HR PATCH TRANSDERM SCH (08:34)
[2017-11-22] MEDS: LORazepam 1 MG TAB PO PRN ×2 (08:35→20:14)
[2017-11-22 11:36] LABS: Valproic Acid (Depakene) 51.8 ug/mL
[2017-11-22] MEDS: hydrOXYzine PAMOATE 25 MG CAP PO PRN ×2 (13:31→20:45)
[2017-11-22] MEDS ORDERED: QUEtiapine 50 MG TAB PO STA (15:09)
--- NOTE | 2017-11-22 15:25 | P.PN ---
Progress Note - Text Progress Note Date: 11/22/17 IDENTIFICATION DATA: This is a 21-year-old woman with history of depression suicidal ideations and poly substance abuse INTERVAL HISTORY: No reports of events or any behavioral problems overnight; the patient has been cooperative with medication as well as other treatment modalities, appropriately socializing with peers. Today agreed with being interviewed; Reports feeling sad about missing her children. She reports feeling anxious about going to rehab program tomorrow. denied side effects with medications, The patient denied active suicidal and homicidal ideation. MENTAL STATUS EXAMINATION: The patient is alert and oriented 3 and in no apparent distress. Motor and speech behaviors are within normal limits. Mood is "anxious" and affect is neutral with some range and reactivity thought processes linear .thought content is negative for suicidal or homicidal ideation Denies current auditory or visual hallucinations. insight and judgment are improving. ASSESSMENT AND PLAN: Will add seroquel 50mg po now for anxiety. Continue her current treatment. Patient will be going to [facility] rehab program tomorrow.
[2017-11-22] MEDS: DIVALPROEX ER 500 MG TAB.ER.24H PO SCH (20:14)
[2017-11-22] MEDS: QUEtiapine 100 MG TAB PO SCH (20:14)
[2017-11-23 05:33] VITALS: RESP 12
[2017-11-23 06:55] VITALS: BP 96/54; PULSE 60; TEMP 97.9
[2017-11-23] MEDS: LORazepam 1 MG TAB PO PRN (07:52)
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
[2017-11-23] MEDS: NICOTINE 21MG/24HR PATCH TRANSDERM SCH (09:28)
== END 2017-11-23 09:37 | DRG 885 ==
LOC: EC 14:12 → 3MHU 11-16 16:59
PROVIDERS: ADMIT Psychiatry & Neurology Psychiatry; ATTEND Psychiatry & Neurology Psychiatry
DX: F31.81 Bipolar II disorder (principal); R45.851 Suicidal ideations; F15.20 Other stimulant dependence, uncomplicated; F41.9 Anxiety disorder, unspecified; F12.10 Cannabis abuse, uncomplicated; E66.9 Obesity, unspecified; F15.90 Other stimulant use, unspecified, uncomplicated; F11.90 Opioid use, unspecified, uncomplicated; F17.210 Nicotine dependence, cigarettes, uncomplicated; B18.2 Chronic viral hepatitis C; Z91.410 Personal history of adult physical and sexual abuse; Z59.9 Problem related to housing and economic circumstances, unspecified; Z59.0 Homelessness; Z79.899 Other long term (current) drug therapy; Z81.8 Family history of other mental and behavioral disorders; Z91.5 Personal history of self-harm
CPT/HCPCS: 36415; 80048; 80061; 80164; 80306; 81001; 81025; 82075; 83036; 84443; 84450; 84460; 85025; 99285

== ENCOUNTER → 2019-04-15 | Outpatient (CLI) | payer OTHER ==
--- NOTE | 2019-04-15 10:22 | MR ---
MR liver with and without contrast HISTORY: Liver disease Multiplanar multisequence and postcontrast images obtained through the liver following 11 cc Gadavist IV Correlation ultrasound liver 06/10/2017 The liver is enlarged. No significant signal drop on out of phase imaging to suggest hepatic steatosi s. The hypoechoic focus seen in the left lobe of the liver on prior ultrasound may correspond to hypo echoic focus seen on T1, hyperechoic focus on T2 measuring 8 mm on the axial image #36 of series 401 and 304 axial image 89. There is enhancement following contrast administration with no evident washou t. Hepatic veins, portal veins are patent. Inferior vena cava unremarkable. There is no ascites. The spleen is not enlarged, small cystic focus present along the anterior margin laterally measures 7 mm and is T2 bright, T1 hypointense. The adrenal glands, kidneys, pancreas, aor ta are unremarkable. No retroperitoneal adenopathy. Gallbladder is absent. Lung bases are unremarkabl e. Heart is not enlarged. No pleural or pericardial effusion. No evident bowel obstruction. Osseous s tructures show unremarkable marrow signal. Umbilical hernia contains fat. No evident renal mass. IMPRESSION: Indeterminate subcentimeter focus left lobe of the liver may represent atypical hemangiom a. Hepatomegaly. Post cholecystectomy.
== END | disposition home or self-care (01) ==
LOC: RADMRIMAIN 08:26
PROVIDERS: ATTEND Internal Medicine Gastroenterology
DX: R16.0 Hepatomegaly, not elsewhere classified (principal); Z90.49 Acquired absence of other specified parts of digestive tract
CPT/HCPCS: 74183; A9585

== ENCOUNTER 2019-05-23 05:52 | Emergency (ER) | payer OTHER ==
[2019-05-23 06:02] VITALS: BP 126/88; PULSE 107; RESP 18; TEMP 98.9
[2019-05-23] MEDS ORDERED: AZITHROMYCIN 500 MG TAB PO STA (06:15)
[2019-05-23] MEDS ORDERED: DEXAMETHASONE 4 MG TAB PO STA (06:15)
[2019-05-23] MEDS ORDERED: ACETAMINOPHEN TAB 500 MG TAB PO STA (06:15)
[2019-05-23] MEDS ORDERED: IBUPROFEN 600 MG STARTER PACK 4 TAB BTL PO STA (06:15)
--- NOTE | 2019-05-23 06:23 | ED ---
ENT HPI - General Chief complaint: ENT Stated complaint: Sore Throat Source: patient, RN notes reviewed, old records reviewed Mode of arrival: ambulatory Limitations: no limitations - History of Present Illness Initial comments: Patient is a 28-year-old female presents emergency Department sore throat for the past 3 days complains also of intermittent headache. She took naproxen many hours ago. No recent intake products or pain medication. Patient reports that she's had no history of sick contacts with strep or mono. She denies having mono in the past. Patient states that she has had no significant coughing. She denies any rashes or sinus drainage. - Related Data Home Medications Medication Instructions Recorded Confirmed Etonogestrel [Nexplanon] 68 mg SQ ONCE 11/15/17 11/15/17 Previous Rx's Medication Instructions Recorded Divalproex ER [Depakote ER] 1,000 mg PO HS #60 tab.er.24h 11/23/17 Nicotine 21Mg/24Hr Patch [Habitrol] 1 patch TRANSDERM DAILY #10 patch 11/23/17 QUEtiapine [SEROquel] 100 mg PO HS #30 tab 11/23/17 hydrOXYzine PAMOATE [Vistaril] 50 mg PO TID PRN #45 capsule 11/23/17 Azithromycin [Zithromax Z-pack] 250 mg PO DIRECTED #6 tab 05/23/19 methylPREDNISolone Dose Pack 4 mg PO DIRECTED #21 package 05/23/19 [Medrol Dose Pack] Allergies Allergy/AdvReac Type Severity Reaction Status Date / Time Penicillins Allergy Unknown Verified 05/23/19 06:02 Childhood sulfamethoxazole Allergy Unknown Verified 05/23/19 06:02 [From Bactrim] Childhood trimethoprim [From Bactrim] Allergy Unknown Verified 05/23/19 06:02 Childhood Review of Systems ROS Statement: Those systems with pertinent positive or pertinent negative responses have been documented in the HPI. ROS Other: All systems not noted in ROS Statement are negative. Past Medical History Past Medical History: Liver Disease Additional Past Medical History / Comment(s): migraine, hives, sinus problems, hepatitis A and C, 2 spontaneous vaginal deliveries, History of Any Multi-Drug Resistant Organisms: None Reported Past Surgical History: Cholecystectomy Past Anesthesia/Blood Transfusion Reactions: No Reported Reaction Past Psychological History: Anxiety, Depression Smoking Status: Current every day smoker Past Alcohol Use History: Occasional Past Drug Use History: Heroin, Marijuana, Methamphetamine, Prescription Drug Abuse - Past Family History Father Family Medical History: Unable to Obtain Mother Family Medical History: Cancer General Exam - General Exam Comments Initial Comments: This is a 28-year-old female. Alert and oriented 3. Patient appears in no acute distress. Limitations: no limitations General appearance: alert, in no apparent distress Head exam: Present: atraumatic, normocephalic, normal inspection Eye exam: Present: normal appearance, PERRL, EOMI. Absent: scleral icterus, conjunctival injection, periorbital swelling ENT exam: Present: normal exam, mucous membranes moist, other (Patient has erythematous oropharynx. Evidence of exudates over the bilateral tonsils. No evidence of abscess or pharyngeal deviation.) Neck exam: Present: normal inspection. Absent: tenderness, meningismus, lymphadenopathy Respiratory exam: Present: normal lung sounds bilaterally. Absent: respiratory distress, wheezes, rales, rhonchi, stridor Cardiovascular Exam: Present: regular rate, normal rhythm, normal heart sounds. Absent: systolic murmur, diastolic murmur, rubs, gallop, clicks GI/Abdominal exam: Present: soft, normal bowel sounds. Absent: distended, tenderness, guarding, rebound, rigid Extremities exam: Present: normal inspection, full ROM, normal capillary refill. Absent: tenderness, pedal edema, joint swelling, calf tenderness Back exam: Present: normal inspection Neurological exam: Present: alert, oriented X3, CN II-XII intact Psychiatric exam: Present: normal affect, normal mood Skin exam: Present: warm, dry, intact, normal color. Absent: rash Course Vital Signs 05/23/19 06:00 Temperature 98.9 F Pulse Rate 107 H Respiratory 18 Rate Blood Pressure 126/88 O2 Sat by Pulse 98 Oximetry Medical Decision Making - Medical Decision Making 28-year-old female presenting for eval for concern for sore throat for the past 3 days. On exam she has no signs of abscess. She does have evidence of enlarged erythematous tonsils with exudates are noted. Strep completed. Patient given Motrin Tylenol emergency department. I discussed checking strep test that this has still covering for bacterial pharyngitis. Discussed possibility of mono as well. Was given Decadron and emergency department. Patient will be advised to follow-up with her PCP. Discussed return parameters. Disposition Clinical Impression: Pharyngitis Disposition: HOME SELF-CARE Condition: Good Instructions (If sedation given, give patient instructions): Pharyngitis (ED) Additional Instructions: Please use medication as discussed. Patient should be taking Motrin or Tylenol every 4-6 hours for fever and pain. Patient should do salt water rinses and gargles. Please follow up with family doctor if symptoms have not improved over the next two days. Please return to the emergency room if your symptoms increase or worsen or for any other concerns. Prescriptions: methylPREDNISolone Dose Pack [Medrol Dose Pack] 4 mg PO DIRECTED #21 package Azithromycin [Zithromax Z-pack] 250 mg PO DIRECTED #6 tab Is patient prescribed a controlled substance at d/c from ED?: No Referrals: Davie Garza DO [Primary Care Provider] - 1-2 days Time of Disposition: 06:21
== END 2019-05-23 07:08 | disposition home or self-care (01) ==
LOC: EC 05:52
DX: J02.9 Acute pharyngitis, unspecified (principal); R51 Headache; F17.200 Nicotine dependence, unspecified, uncomplicated; Z79.3 Long term (current) use of hormonal contraceptives; Z88.0 Allergy status to penicillin; Z88.2 Allergy status to sulfonamides; Z88.1 Allergy status to other antibiotic agents
CPT/HCPCS: 87430; 99284; J8540

== ENCOUNTER 2019-07-13 11:38 | Emergency (ER) | payer OTHER ==
[2019-07-13] MEDS ORDERED: LIDOCAINE 1%-EPI 1:100,000 20 ML VIAL SQ STA (12:11)
--- NOTE | 2019-07-13 12:44 | ED ---
General Adult HPI - General Chief complaint: Skin/Abscess/Foreign Body Stated complaint: Abcess on groin Time Seen by Provider: 07/13/19 11:45 Source: patient Mode of arrival: ambulatory Limitations: no limitations - History of Present Illness Initial comments: The patient is a 28-year-old female with no past medical history presents to emergency room with reported abscess to her left groin. Patient states that she has had one abscess previously in the past is located on her left knee. She was given antibiotics in an improved. She states that 3 days ago she ended up having a pimple on her left groin which has now grown in size. She was able to drain some pustular drainage from it yesterday. She admits to very tender to the touch. Denies recently shaving the area. No history of MRSA infections. Denies any fevers or chills. No abnormal vaginal bleeding or discharge. No concern for . There are no other alleviating, precipitating or modifying factors - Related Data Home Medications Medication Instructions Recorded Confirmed Etonogestrel [Nexplanon] 68 mg SQ ONCE 11/15/17 11/15/17 Previous Rx's Medication Instructions Recorded Divalproex ER [Depakote ER] 1,000 mg PO HS #60 tab.er.24h 11/23/17 Nicotine 21Mg/24Hr Patch [Habitrol] 1 patch TRANSDERM DAILY #10 patch 11/23/17 QUEtiapine [SEROquel] 100 mg PO HS #30 tab 11/23/17 hydrOXYzine PAMOATE [Vistaril] 50 mg PO TID PRN #45 capsule 11/23/17 Azithromycin [Zithromax Z-pack] 250 mg PO DIRECTED #6 tab 05/23/19 methylPREDNISolone Dose Pack 4 mg PO DIRECTED #21 package 05/23/19 [Medrol Dose Pack] Cephalexin [Keflex] 500 mg PO Q6HR #28 cap 07/13/19 Allergies Allergy/AdvReac Type Severity Reaction Status Date / Time Penicillins Allergy Unknown Verified 05/23/19 06:02 Childhood sulfamethoxazole Allergy Unknown Verified 05/23/19 06:02 [From Bactrim] Childhood trimethoprim [From Bactrim] Allergy Unknown Verified 05/23/19 06:02 Childhood Review of Systems ROS Statement: Those systems with pertinent positive or pertinent negative responses have been documented in the HPI. ROS Other: All systems not noted in ROS Statement are negative. Past Medical History Past Medical History: Liver Disease Additional Past Medical History / Comment(s): migraine, hives, sinus problems, hepatitis A and C, 2 spontaneous vaginal deliveries, History of Any Multi-Drug Resistant Organisms: None Reported Past Surgical History: Cholecystectomy Additional Past Surgical History / Comment(s): sinus Past Anesthesia/Blood Transfusion Reactions: No Reported Reaction Past Psychological History: Anxiety, Depression Smoking Status: Current every day smoker Past Alcohol Use History: None Reported, Occasional Past Drug Use History: Heroin, Marijuana, Methamphetamine, Prescription Drug Abuse - Past Family History Father Family Medical History: Unable to Obtain Mother Family Medical History: Cancer General Exam Limitations: no limitations Course Vital Signs 07/13/19 07/13/19 11:44 12:57 Temperature 98 F 98.7 F Pulse Rate 97 79 Respiratory 16 18 Rate Blood Pressure 127/87 132/84 O2 Sat by Pulse 100 99 Oximetry Medical Decision Making - Medical Decision Making Upon arrival the patient was placed into room 22. Rest of physical exam is performed. The patient does have an abscess noted on the left inner thigh. There is a central scab. I did discuss incision and drainage at the patient for she did agree. The area was anesthetized using 1% lidocaine with epinephrine. Approximately 6 mL was infiltrated. The patient received adequate analgesia. I then used an 11 blade scalpel to neck the most fluctuant area. I did receive 1 mL of pustular drainage. Wound was cultured. The wound was then packed with 1/4' iodoform form gauze. Approximately 2 cm was externalized to facilitate extraction. The patient is instructed to remove the packing within 24-48 hours. She will be placed on Keflex 4 times daily for 7 days. Follow up with her primary care doctor in 2-4 days for reevaluation. Return to the emergency room for any new or worsening symptoms Disposition Clinical Impression: Abscess of groin, left Disposition: HOME SELF-CARE Condition: Stable Instructions (If sedation given, give patient instructions): Abscess Incision and Drainage (ED), Abscess (ED) Additional Instructions: Please remove your packing after 24 hours. Follow-up with your primary care doctor in 2-4 days. Return to the emergency room for any new or worsening symptoms Prescriptions: Cephalexin [Keflex] 500 mg PO Q6HR #28 cap Is patient prescribed a controlled substance at d/c from ED?: No Referrals: Davie Garza DO [Primary Care Provider] - 1-2 days Time of Disposition: 12:44
[2019-07-13 12:58] VITALS: BP 132/84; PULSE 79; RESP 18; TEMP 98.7
== END 2019-07-13 12:58 | disposition home or self-care (01) ==
LOC: EC 11:38
DX: L02.214 Cutaneous abscess of groin (principal); F17.200 Nicotine dependence, unspecified, uncomplicated; Z88.0 Allergy status to penicillin; Z88.1 Allergy status to other antibiotic agents; Z88.2 Allergy status to sulfonamides
CPT/HCPCS: 10060; 87070; 87205; 99283

== ENCOUNTER 2019-09-05 16:31 | Emergency (ER) | payer OTHER ==
[2019-09-05 16:35] VITALS: BP 132/85; PULSE 108; RESP 18; TEMP 97.8
[2019-09-05] MEDS ORDERED: CLINDAMYCIN 150 MG CAP PO STA (17:13)
[2019-09-05] MEDS ORDERED: IBUPROFEN 600 MG TAB PO STA (17:13)
--- NOTE | 2019-09-05 17:17 | ED ---
Skin/Abscess/FB HPI - General Chief complaint: Skin/Abscess/Foreign Body Stated complaint: Rash on Neck Time Seen by Provider: 09/05/19 16:58 Source: patient Mode of arrival: ambulatory Limitations: no limitations - History of Present Illness Initial comments: 28-year-old female patient presents to the emergency department today for evaluation of wound to the back of her neck. Patient states his been there for the last 3 days. States she is having some mild drainage. She has been applying Neosporin. Patient states she had a similar lesion to her leg in the past that was positive for MRSA. She denies any fevers or chills with this. States the area has been painful to touch. States she believes this started as an ingrown hair. Denies any itching to the area. Denies any new shampoos or lotions. - Related Data Home Medications Medication Instructions Recorded Confirmed Etonogestrel [Nexplanon] 68 mg SQ ONCE 11/15/17 11/15/17 Previous Rx's Medication Instructions Recorded Divalproex ER [Depakote ER] 1,000 mg PO HS #60 tab.er.24h 11/23/17 Nicotine 21Mg/24Hr Patch [Habitrol] 1 patch TRANSDERM DAILY #10 patch 11/23/17 QUEtiapine [SEROquel] 100 mg PO HS #30 tab 11/23/17 hydrOXYzine PAMOATE [Vistaril] 50 mg PO TID PRN #45 capsule 11/23/17 Azithromycin [Zithromax Z-pack] 250 mg PO DIRECTED #6 tab 05/23/19 methylPREDNISolone Dose Pack 4 mg PO DIRECTED #21 package 05/23/19 [Medrol Dose Pack] Cephalexin [Keflex] 500 mg PO Q6HR #28 cap 07/13/19 Clindamycin HCl 300 mg PO Q6H #40 cap 09/05/19 Allergies Allergy/AdvReac Type Severity Reaction Status Date / Time Penicillins Allergy Unknown Verified 05/23/19 06:02 Childhood sulfamethoxazole Allergy Unknown Verified 05/23/19 06:02 [From Bactrim] Childhood trimethoprim [From Bactrim] Allergy Unknown Verified 05/23/19 06:02 Childhood Review of Systems ROS Statement: Those systems with pertinent positive or pertinent negative responses have been documented in the HPI. ROS Other: All systems not noted in ROS Statement are negative. Past Medical History Past Medical History: Liver Disease Additional Past Medical History / Comment(s): migraine, hives, sinus problems, hepatitis A and C, 2 spontaneous vaginal deliveries, History of Any Multi-Drug Resistant Organisms: None Reported Date of last positivie culture/infection: 07/13/19 MDRO Source:: MRSA GROIN Past Surgical History: Cholecystectomy Additional Past Surgical History / Comment(s): sinus Past Anesthesia/Blood Transfusion Reactions: No Reported Reaction Past Psychological History: Anxiety, Depression Smoking Status: Current every day smoker Past Alcohol Use History: Occasional Past Drug Use History: Heroin, Marijuana, Methamphetamine, Prescription Drug Abuse - Past Family History Father Family Medical History: Unable to Obtain Mother Family Medical History: Cancer General Exam Limitations: no limitations General appearance: alert, in no apparent distress, other (Physical well- developed, well-nourished adult female patient in no acute distress. Vital signs upon presentation are temperature 97.8F, pulse 108, respirations 18, blood pressure 132/85, pulse ox 99% on room air.) Respiratory exam: Present: normal lung sounds bilaterally. Absent: respiratory distress, wheezes, rales, rhonchi, stridor Cardiovascular Exam: Present: regular rate, normal rhythm, normal heart sounds. Absent: systolic murmur, diastolic murmur, rubs, gallop, clicks Neurological exam: Present: alert, oriented X3, CN II-XII intact Psychiatric exam: Present: normal affect, normal mood Skin exam: Present: warm, dry, intact, normal color. Absent: rash Expanded Type of lesion: Present: abscess (There is an abscess noted to the left posterior neck, there is surrounding erythema, no drainage. This is indurated with no fluctuance.) Course Vital Signs 09/05/19 16:33 Temperature 97.8 F Pulse Rate 108 H Respiratory 18 Rate Blood Pressure 132/85 O2 Sat by Pulse 99 Oximetry Medical Decision Making - Medical Decision Making 28-year-old female patient presented to the emergency department today for evaluation of abscess to the posterior neck. This been present for 3 days. This was indurated with no fluctuance, requiring no incision and drainage. We will start clindamycin given her ALLERGY to Bactrim and she'll be instructed to apply warm compresses 3-4 times daily. She is instructed to follow-up with her primary care physician for recheck in 1-2 days. Return parameters were discussed in detail. She verbalizes understanding and agrees with this plan. Disposition Clinical Impression: Abscess of neck Disposition: HOME SELF-CARE Condition: Good Instructions (If sedation given, give patient instructions): Abscess (ED) Additional Instructions: Apply warm compresses 20 minutes at a time at least 4-5 times per day. Complete antibiotic prescription in full. Follow-up with your primary care physician for recheck in 1-2 days. Return to the emergency department immediately for any new, worsening, or concerning symptoms. Prescriptions: Clindamycin HCl 300 mg PO Q6H #40 cap Is patient prescribed a controlled substance at d/c from ED?: No Referrals: Davie Garza DO [Primary Care Provider] - 1-2 days Time of Disposition: 17:17
== END 2019-09-05 17:25 | disposition home or self-care (01) ==
LOC: EC 16:31
DX: L02.11 Cutaneous abscess of neck (principal); F17.200 Nicotine dependence, unspecified, uncomplicated; F15.10 Other stimulant abuse, uncomplicated; Z79.3 Long term (current) use of hormonal contraceptives; Z88.1 Allergy status to other antibiotic agents; Z88.2 Allergy status to sulfonamides; Z88.0 Allergy status to penicillin; Z86.14 Personal history of Methicillin resistant Staphylococcus aureus infection
CPT/HCPCS: 87070; 87205; 99283

== ENCOUNTER 2019-10-22 12:09 | Emergency (ER) | payer OTHER ==
[2019-10-22 12:25] VITALS: RESP 20; TEMP 98.4
[2019-10-22] MEDS ORDERED: VANCOMYCIN IV PER PHARMACY 1 EACH MISC MISCELLANE PRN (12:43)
[2019-10-22] MEDS ORDERED: AMPICILLIN-SULBACTAM 3 GM in SODIUM CHLORIDE 0.9% 100 ML IVPB STA (12:43)
[2019-10-22] MEDS ORDERED: VANCOMYCIN 1,250 MG in SODIUM CHLORIDE 0.9% 250 ML IVPB STA (12:46)
--- NOTE | 2019-10-22 12:49 | ED ---
General Adult HPI - General Source: patient, RN notes reviewed, old records reviewed Mode of arrival: ambulatory Limitations: no limitations <Joycelyn Ambrocio - Last Filed: 10/22/19 16:01> <Zahra Umana - Last Filed: 10/23/19 01:09> - General Chief complaint: Extremity Injury, Upper Stated complaint: finger infection Time Seen by Provider: 10/22/19 12:27 - History of Present Illness Initial comments: Sandra is a 28-year-old female who presents emergency room today with right second digit infection. Patient reports that she has an ulceration an abscess over the second digit and severe pain with any range of motion of the finger. Patient reports that she's noticed this for the past week. She's been soaking in Epsom salts and has had purulent drainage. She does report a history of MRSA. (Joycelyn Ambrocio) - Related Data Home Medications Medication Instructions Recorded Confirmed Etonogestrel [Nexplanon] 68 mg SQ ONCE 11/15/17 11/15/17 Previous Rx's Medication Instructions Recorded Divalproex ER [Depakote ER] 1,000 mg PO HS #60 tab.er.24h 11/23/17 Nicotine 21Mg/24Hr Patch [Habitrol] 1 patch TRANSDERM DAILY #10 patch 11/23/17 QUEtiapine [SEROquel] 100 mg PO HS #30 tab 11/23/17 hydrOXYzine PAMOATE [Vistaril] 50 mg PO TID PRN #45 capsule 11/23/17 Azithromycin [Zithromax Z-pack] 250 mg PO DIRECTED #6 tab 05/23/19 methylPREDNISolone Dose Pack 4 mg PO DIRECTED #21 package 05/23/19 [Medrol Dose Pack] Cephalexin [Keflex] 500 mg PO Q6HR #28 cap 07/13/19 Clindamycin HCl 300 mg PO Q6H #40 cap 09/05/19 Doxycycline [Vibramycin] 100 mg PO BID 14 Days #28 capsule 10/22/19 Ibuprofen [Motrin] 600 mg PO Q8HR PRN #20 tab 10/22/19 Allergies Allergy/AdvReac Type Severity Reaction Status Date / Time Penicillins Allergy Unknown Verified 10/22/19 12:26 Childhood sulfamethoxazole Allergy Unknown Verified 10/22/19 12:26 [From Bactrim] Childhood trimethoprim [From Bactrim] Allergy Unknown Verified 10/22/19 12:26 Childhood Review of Systems ROS Other: All systems not noted in ROS Statement are negative. <Joycelyn Ambrocio - Last Filed: 10/22/19 16:01> ROS Other: All systems not noted in ROS Statement are negative. <Zahra Umana - Last Filed: 10/23/19 01:09> ROS Statement: Those systems with pertinent positive or pertinent negative responses have been documented in the HPI. Past Medical History Past Medical History: Liver Disease Additional Past Medical History / Comment(s): migraine, sinus problems, hepatitis A and C, History of Any Multi-Drug Resistant Organisms: MRSA Date of last positivie culture/infection: 09/06/19 MDRO Source:: neck Past Surgical History: Cholecystectomy Additional Past Surgical History / Comment(s): sinus Past Anesthesia/Blood Transfusion Reactions: No Reported Reaction Past Psychological History: Anxiety, Depression Smoking Status: Current every day smoker Past Alcohol Use History: Occasional Past Drug Use History: Heroin, Marijuana, Methamphetamine, Prescription Drug Abuse - Past Family History Father Family Medical History: Unable to Obtain Mother Family Medical History: Cancer <Joycelyn Ambrocio - Last Filed: 10/22/19 16:01> General Exam Limitations: no limitations General appearance: alert, in no apparent distress Head exam: Present: atraumatic, normocephalic, normal inspection Eye exam: Present: normal appearance, PERRL, EOMI. Absent: scleral icterus, conjunctival injection, periorbital swelling ENT exam: Present: normal exam, mucous membranes moist Neck exam: Present: normal inspection. Absent: tenderness, meningismus, lymphadenopathy Respiratory exam: Present: normal lung sounds bilaterally. Absent: respiratory distress, wheezes, rales, rhonchi, stridor Cardiovascular Exam: Present: regular rate, normal rhythm, normal heart sounds. Absent: systolic murmur, diastolic murmur, rubs, gallop, clicks GI/Abdominal exam: Present: soft, normal bowel sounds. Absent: distended, tenderness, guarding, rebound, rigid Extremities exam: Present: normal inspection, full ROM, normal capillary refill. Absent: tenderness, pedal edema, joint swelling, calf tenderness Right Upper Arm exam: Present: normal inspection, full ROM Elbow exam: Present: normal inspection, full ROM Forearm Wrist exam: Present: normal inspection, full ROM Hand Wrist exam: Present: tenderness (Patient has evidence of tenderness and swelling over the DIP of the right second digit, with passive flexion at the DIP. Patient has significant pain with any extension of the finger. There is purulent drainage from the DIP.). Absent: normal inspection, full ROM, swelling, abrasion, laceration, ecchymosis Neuro motor exam: Present: wrist extension intact, thumb opposition intact, thumb IP flexion intact, thumb adduction intact, fingers 2-5 abduction intact Vascular: Present: vascular compromise Back exam: Present: normal inspection Neurological exam: Present: alert, oriented X3, CN II-XII intact Psychiatric exam: Present: normal affect, normal mood <Joycelyn Ambrocio - Last Filed: 10/22/19 16:01> - General Exam Comments Initial Comments: 28-year-old female. Patient is a moderate discomfort. (Joycelyn Ambrocio) Course <Joycelyn Ambrocio - Last Filed: 10/22/19 16:01> Vital Signs 10/22/19 10/22/19 12:21 16:27 Temperature 98.4 F Pulse Rate 104 H 100 Respiratory 20 20 Rate Blood Pressure 118/69 124/87 O2 Sat by Pulse 100 99 Oximetry - Reevaluation(s) Reevaluation #1: 10/22/19 14:[address] Noriega who will come to the emergency department to evaluate the Patient. (Joycelyn Ambrocio) Reevaluation #2: 10/22/19 15:10 Dr. Noriega is at bedside and will be preforming incision and drainage of R index finger felon. Patient had tendon sheath nerve block. (Joycelyn Ambrocio) Medical Decision Making - Lab Data Result diagrams: 10/22/19 13:00 10/22/19 13:00 - Radiology Data Radiology results: report reviewed <Joycelyn Ambrocio - Last Filed: 10/22/19 16:01> - Lab Data Result diagrams: 10/22/19 13:00 10/22/19 13:00 <Zahra Umana - Last Filed: 10/23/19 01:09> - Medical Decision Making Patient is a 28-year-old female who presents emergency department today for evaluation for infected right second digit. She has edema and pain with flexion . Concern for felon versus tenosynovitis. X-ray of the hand showed no sign of osteomyelitis. Laboratories otherwise unremarkable. Patient was examined by Dr. Noriega who performed a bedside incision and drainage of the felon. A wound culture is completed. Patient was to be started on doxycycline with her history of ALLERGIES and she did receive a dose of vancomycin and Rocephin emergency department. Patient advised prompt follow-up with Dr. Noriega and thoroughly discussed wound care instructions. (Joycelyn Ambrocio) I was available for consultation in the emergency department. The history and physical exam were done by the midlevel provider. I was consulted for this patients care. I reviewed the case with the midlevel provider and based on their presentation of the patient, I agree with the assessment, medical decision making and plan of care as documented. I discussed the case with Dr. Noriega who presented to the ED and evaluated the patient himself. Disposition per Dr. Noriega Chart was dictated using [email or web address] dictation software. Attempts were made to correct any dictation errors however some typographical errors may persist. Patient was seen during a national state of emergency due to the Covid-19 pandemic. (Zahra Umana) - Lab Data Lab Results 10/22/19 10/22/19 10/22/19 Range/Units 13:00 13:00 13:00 WBC 8.0 (3.8-10.6) k/uL RBC 4.21 (3.80-5.40) m/uL Hgb 11.6 (11.4-16.0) gm/dL Hct 36.1 (34.0-46.0) % MCV 85.7 (80.0-100.0) fL MCH 27.5 (25.0-35.0) pg MCHC 32.1 (31.0-37.0) g/dL RDW 13.2 (11.5-15.5) % Plt Count 312 (150-450) k/uL Neutrophils % 56 % Lymphocytes % 33 % Monocytes % 5 % Eosinophils % 3 % Basophils % 1 % Neutrophils # 4.5 (1.3-7.7) k/uL Lymphocytes # 2.6 (1.0-4.8) k/uL Monocytes # 0.4 (0-1.0) k/uL Eosinophils # 0.3 (0-0.7) k/uL Basophils # 0.1 (0-0.2) k/uL Sodium 140 (137-145) mmol/L Potassium 3.9 (3.5-5.1) mmol/L Chloride 108 H (98-107) mmol/L Carbon Dioxide 24 (22-30) mmol/L Anion Gap 8 mmol/L BUN 15 (7-17) mg/dL Creatinine 0.52 (0.52-1.04) mg/dL Est GFR (CKD-EPI)AfAm >90 (>60 ml/min/1.73 sqM) Est GFR (CKD-EPI)NonAf >90 (>60 ml/min/1.73 sqM) Glucose 133 H (74-99) mg/dL Plasma Lactic Acid Neno 1.4 (0.7-2.0) mmol/L Calcium 9.6 (8.4-10.2) mg/dL Total Bilirubin 0.3 (0.2-1.3) mg/dL AST 33 (14-36) U/L ALT 35 H (4-34) U/L Alkaline Phosphatase 96 (38-126) U/L C-Reactive Protein 11.6 H (<10.0) mg/L Total Protein 7.7 (6.3-8.2) g/dL Albumin 4.1 (3.5-5.0) g/dL - Radiology Data X-rays negative for any acute process at this time. (Joycelyn Ambrocio) Disposition Is patient prescribed a controlled substance at d/c from ED?: No Time of Disposition: 16:02 <Joycelyn Ambrocio - Last Filed: 10/22/19 16:01> <Zahra Umana - Last Filed: 10/23/19 01:09> Clinical Impression: Felon of finger of right hand Disposition: HOME SELF-CARE Condition: Good Instructions (If sedation given, give patient instructions): Paronychia (ED) Additional Instructions: Patient advised to complete antibiotic as prescribed. Follow-up with Dr. Leann estrella of next week. Patient should change the dressing twice a day after soaking with gauze wrapping and wrap with coband. If the gauze sticks Patient can soak the finger in water. Patient should do soaks with iodine and clean water 2 times a day. Return to ED if any alarming signs or symptoms occur. Prescriptions: Ibuprofen [Motrin] 600 mg PO Q8HR PRN #20 tab PRN Reason: Pain Doxycycline [Vibramycin] 100 mg PO BID 14 Days #28 capsule Referrals: Davie Garza DO [Primary Care Provider] - 1-2 days Renny Noriega DO [Medical Doctor] - 1-2 days
[2019-10-22] MEDS ORDERED: KETOROLAC 30 MG/ML 1 ML VIAL IVP STA (13:04)
[2019-10-22] MEDS ORDERED: HYDROcodone/APAP 5-325MG 1 EACH TAB PO STA (13:04)
[2019-10-22 13:21] LABS: Basophils # (A) 0.1 k/uL (0-0.2); Basophils % (A) 1 %; Eosinophils # (A) 0.3 k/uL (0-0.7); Eosinophils % (A) 3 %; HCT 36.1 % (34.0-46.0); HGB 11.6 gm/dL (11.4-16.0); Lymphocytes # (A) 2.6 k/uL (1.0-4.8); Lymphocytes % (A) 33 %; MCH 27.5 pg (25.0-35.0); MCHC 32.1 g/dL (31.0-37.0); MCV 85.7 fL (80.0-100.0); Mean Platelet Volume 7.5; Monocytes # (A) 0.4 k/uL (0-1.0); Monocytes % (A) 5 %; Neutrophils # (A) 4.5 k/uL (1.3-7.7); Neutrophils % (A) 56 %; Platelet Count 312 k/uL (150-450); RBC 4.21 m/uL (3.80-5.40); RDW 13.2 % (11.5-15.5)
[2019-10-22] MEDS ORDERED: cefTRIAXone IN SWFI 1,000 MG/10 ML SYRINGE IVP STA (13:22)
--- NOTE | 2019-10-22 13:28 | XR ---
EXAMINATION TYPE: XR hand complete RT , 3 VIEWS DATE OF EXAM ORDERED: 10/22/2019 HISTORY: tenosynovitis 2nd digit. COMPARISON: None. FINDINGS: There is mild soft tissue swelling over the distal phalanx of the right index finger. No f racture, dislocation or other acute osseous lesion is seen. IMPRESSION: NO ACUTE OSSEOUS LESION.
[2019-10-22 13:43] LABS: ALT 35 U/L (4-34); AST 33 U/L (14-36); African American GFR (CKD) >90 (>60 ml/min/1.73 sqM); Albumin 4.1 g/dL (3.5-5.0); Alkaline Phosphatase 96 U/L (38-126); Anion Gap 8 mmol/L; Blood Urea Nitrogen 15 mg/dL (7-17); C Reactive Protein 11.6 mg/L (<10.0); Calcium 9.6 mg/dL (8.4-10.2); Carbon Dioxide 24 mmol/L (22-30); Chloride 108 mmol/L (98-107); Glucose 133 mg/dL (74-99); Non-African American GFR(CKD) >90 (>60 ml/min/1.73 sqM); Potassium 3.9 mmol/L (3.5-5.1); Sodium 140 mmol/L (137-145); Total Bilirubin 0.3 mg/dL (0.2-1.3); Total Protein 7.7 g/dL (6.3-8.2)
[2019-10-22] MEDS ORDERED: MORPHINE SULFATE 4 MG/ML SYRINGE IVP STA (14:01)
[2019-10-22] MEDS ORDERED: ONDANSETRON 4 MG/2 ML VIAL IVP STA (14:23)
[2019-10-22] MEDS ORDERED: LIDOCAINE 1% INJ 10MG/ML (20 ML MDV) SQ ONE (14:48)
[2019-10-22] MEDS ORDERED: diphenhydrAMINE 50 MG/ML 1 ML VIAL IVP STA (15:57)
[2019-10-22 16:30] VITALS: BP 124/87; PULSE 100
[2019-10-22] MEDS ORDERED: VANCOMYCIN 1,250 MG in SODIUM CHLORIDE 0.9% 250 ML IVPB SCH (23:00)
--- NOTE | 2019-10-23 17:22 | P.CNOR ---
History of Present Illness - HPI Consult date: 10/22/19 Requesting physician: Zahra Umana Consult reason: other (finger infection) History of present illness: The patient is a 28-year-old [id number] female who presented to the emergency department at [facility] for evaluation of a wound on the tip of her right index finger. She believes that she may have caught it on a nail or a piece of wood while working around the house. She did not seek treatment initially but states she washed it with peroxide. She has been performing Epsom salt soaks but it has been progressively worsening. She admits that she has a tendency to pick at things. She denies fevers, chills or systemic feelings of illness. Past medical history includes hepatitis and IV drug abuse. She admits to injecting heroin as recently as a week ago but states that she never injects in her hands. Current smoker: 04/30-04/28 ppd. She is not currently employed. Past Medical History Past Medical History: Liver Disease Additional Past Medical History / Comment(s): migraine, sinus problems, hepatitis A and C, History of Any Multi-Drug Resistant Organisms: MRSA Year Discovered:: 09/06/19 MDRO Source:: neck Past Surgical History: Cholecystectomy Additional Past Surgical History / Comment(s): sinus Past Anesthesia/Blood Transfusion Reactions: No Reported Reaction Past Psychological History: Anxiety, Depression Smoking Status: Current every day smoker Past Alcohol Use History: Occasional Past Drug Use History: Heroin, Marijuana, Methamphetamine, Prescription Drug Abuse - Past Family History Father Family Medical History: Unable to Obtain Mother Family Medical History: Cancer Medications and Allergies Home Medications Medication Instructions Recorded Confirmed Type Etonogestrel [Nexplanon] 68 mg SQ ONCE 11/15/17 11/15/17 History Divalproex ER [Depakote ER] 1,000 mg PO HS #60 tab.er.24h 11/23/17 Rx Nicotine 21Mg/24Hr Patch [Habitrol] 1 patch TRANSDERM DAILY #10 patch 11/23/17 Rx QUEtiapine [SEROquel] 100 mg PO HS #30 tab 11/23/17 Rx hydrOXYzine PAMOATE [Vistaril] 50 mg PO TID PRN #45 capsule 11/23/17 Rx Azithromycin [Zithromax Z-pack] 250 mg PO DIRECTED #6 tab 05/23/19 Rx methylPREDNISolone Dose Pack 4 mg PO DIRECTED #21 package 05/23/19 Rx [Medrol Dose Pack] Cephalexin [Keflex] 500 mg PO Q6HR #28 cap 07/13/19 Rx Clindamycin HCl 300 mg PO Q6H #40 cap 09/05/19 Rx Doxycycline [Vibramycin] 100 mg PO BID 14 Days #28 capsule 10/22/19 Rx Ibuprofen [Motrin] 600 mg PO Q8HR PRN #20 tab 10/22/19 Rx Allergies Allergy/AdvReac Type Severity Reaction Status Date / Time Penicillins Allergy Unknown Verified 10/22/19 12:26 Childhood sulfamethoxazole Allergy Unknown Verified 10/22/19 12:26 [From Bactrim] Childhood trimethoprim [From Bactrim] Allergy Unknown Verified 10/22/19 12:26 Childhood Physical Examination Small (~3 mm x 5 mm) draining ulcerated wound on the tip of the index finger at the corner of the hyponychium and radial nail fold. Purulent fluid is noted. The pulp is bulbous, tense and quite tender to palpation. Minimal tenderness along the flexor sheath. She is able to perform active PIP and MCP flexion with minimal discomfort. Subjective paresthesias distally but normal sensation proximal to the distal phalanx. The digit is warm and well-perfused. Results Right hand x-ray: Soft tissue swelling distally. No acute fractures. No retained foreign bodies. No focal lucencies to suggest osteomyelitis. - Labs Labs: Microbiology - Last 24 Hours (Table) 10/22/19 13:00 Blood Culture - Preliminary Blood No Growth after 24 hours 10/22/19 13:00 Gram Stain - Preliminary Finger - Right Second Wound Culture - Preliminary H & H 10/22/19 Range/Units 13:00 Hgb 11.6 (11.4-16.0) gm/dL Hct 36.1 (34.0-46.0) % Result Diagrams: 10/22/19 13:00 10/22/19 13:00 Assessment and Plan Assessment: Right index finger felon secondary to an ulcerated open wound Polysubstance abuse (heroin and nicotine) Plan: I discussed the clinical and radiographic findings in detail with the patient. Treatment options were reviewed, both surgical and nonsurgical. I recommended incision and drainage. Risks and benefits were reviewed; she expressed understanding and wished to proceed with bedside I&D. See procedure note below. She will be discharged on a 10-day course of doxycycline. She was instructed to remove the dressings tomorrow and begin dilute Betadine soaks 2-3 times per day. The hand may be washed with soap and water. She should keep the finger covered with a dressing at all times. I discussed the negative effects of cigarette smoking, particularly as it relates to increased risk of infection and wound healing complications. I strongly encouraged the patient to quit (or at least cut down). Questions were invited and answered; the patient expressed understanding and agreement with this plan. Call to schedule a follow-up appointment outpatient in one week. She was instructed to contact the office or return to the ER in the interim with worsening pain, drainage, redness or swelling. Renny Noriega D.O. [facility] Procedure Note: Procedure: Incision and drainage of right index finger uvaldo HPI & Indications for Procedure: see above Risk and benefits were discussed with the patient, including (but not limited to) persistent or recurrent infection, wound healing problems and possible need for additional procedures or surgery. She expressed understanding, willingness to accept these risks and wished to undergo the procedure. Consent forms were signed. Description of Procedure: Anesthesia: Local only EBL: <5cc Using aseptic technique, a digital block was performed with 4 cc of lidocaine without epinephrine. After an appropriate interval of time, the finger was prepped Betadine and sterilely draped. Loupe magnification was utilized, along with sterile gloves and instruments. A J-shaped incision was made along the radial mid-axial line, extending into the ulcerated wound at the hyponychium. The wound was bluntly opened and explored with a mosquito hemostat. A small amount of purulent fluid was expressed. A swab culture was obtained. Septations in the pulp were divided but no additional purulent fluid was identified. The macerated tissue at the periphery of the ulcer was sharply and mechanically excised/debrided. The nonviable skin at the periphery was sharply resected with a scalpel. The wounds were copiously irrigated with normal saline. The incision and wound were left open to allow drainage. A small strip of iodoform packing was placed into the wound to prevent premature closure. A bulky sterile dressing of 4 x 4's, Colby and Coban was applied. The patient tolerated the procedure well. Wound care & follow up i nstructions were given.
== END 2019-10-22 16:31 | disposition home or self-care (01) ==
LOC: EC 12:09
DX: L03.011 Cellulitis of right finger (principal); F17.200 Nicotine dependence, unspecified, uncomplicated; F19.10 Other psychoactive substance abuse, uncomplicated; Z88.0 Allergy status to penicillin; Z88.2 Allergy status to sulfonamides; Z88.1 Allergy status to other antibiotic agents; Z79.3 Long term (current) use of hormonal contraceptives; Z86.14 Personal history of Methicillin resistant Staphylococcus aureus infection
CPT/HCPCS: 36415; 80053; 83605; 85025; 86140; 87040; 87070; 87205; 73130; 99284; 96365; 96367; 96366; 96375 ×5; 26010; J3370; J2270; J1200; J2405; J2001; J0696; J1885; J0295; 87077; 87186

== ENCOUNTER 2019-11-15 20:30 | Emergency (ER) | payer OTHER ==
[2019-11-15 20:37] VITALS: TEMP 98.2
[2019-11-15] MEDS ORDERED: KETOROLAC 30 MG/ML 1 ML VIAL IM STA (21:43)
--- NOTE | 2019-11-15 21:51 | XR ---
EXAMINATION TYPE: XR ribs RT w pa chest xray DATE OF EXAM: 11/15/2019 COMPARISON: NONE HISTORY: Pain TECHNIQUE: 5 views FINDINGS: Heart and mediastinum are normal. There is some mild infiltrate at the right lung base. The re are fractures of the anterior and lateral right sixth and eighth and ninth and 10th ribs. There is no pneumothorax. Trachea is midline. Heart size is normal. IMPRESSION: Multiple lateral right rib fractures. Minimal displacement. Infiltrate and atelectasis ri ght lung base.
[2019-11-15] MEDS ORDERED: MORPHINE SULFATE 4 MG/ML SYRINGE IM STA (21:59)
[2019-11-15] MEDS ORDERED: AZITHROMYCIN 500 MG TAB PO STA (22:25)
[2019-11-15] MEDS ORDERED: MORPHINE SULFATE 2 MG/ML SYRINGE IM STA (22:35)
[2019-11-15] MEDS ORDERED: ACET/COD 300 MG/30 MG STARTER PACK 6 TAB BTL PO STA (22:58)
--- NOTE | 2019-11-15 22:58 | ED ---
General Adult HPI - General Chief complaint: Fall Stated complaint: Fall Time Seen by Provider: 11/15/19 20:46 Source: patient, RN notes reviewed Mode of arrival: ambulatory Limitations: no limitations - History of Present Illness Initial comments: 29-year-old female with a past medical history of liver disease, migraines presents to the emergency room for a chief complaint of right rib pain. Patient states that 5 days ago she fell down about 4 stairs onto her right side. States it has been painful since that time. She did not hit her head or neck. No loss of consciousness. Patient states this was a trip and fall. Patient states it is painful on the right side to breathe and pressed.Patient has no other complaints at this time including shortness of breath, chest pain, abdominal pain, nausea or vomiting, headache, or visual changes. - Related Data Home Medications Medication Instructions Recorded Confirmed Etonogestrel [Nexplanon] 68 mg SQ ONCE 11/15/17 11/15/17 Previous Rx's Medication Instructions Recorded Divalproex ER [Depakote ER] 1,000 mg PO HS #60 tab.er.24h 11/23/17 Nicotine 21Mg/24Hr Patch [Habitrol] 1 patch TRANSDERM DAILY #10 patch 11/23/17 QUEtiapine [SEROquel] 100 mg PO HS #30 tab 11/23/17 hydrOXYzine PAMOATE [Vistaril] 50 mg PO TID PRN #45 capsule 11/23/17 Azithromycin [Zithromax Z-pack] 250 mg PO DIRECTED #6 tab 05/23/19 methylPREDNISolone Dose Pack 4 mg PO DIRECTED #21 package 05/23/19 [Medrol Dose Pack] Cephalexin [Keflex] 500 mg PO Q6HR #28 cap 07/13/19 Clindamycin HCl 300 mg PO Q6H #40 cap 09/05/19 Doxycycline [Vibramycin] 100 mg PO BID 14 Days #28 capsule 10/22/19 Ibuprofen [Motrin] 600 mg PO Q8HR PRN #20 tab 10/22/19 Azithromycin [Zithromax Z-pack] 250 mg PO DIRECTED #6 tab 11/15/19 HYDROcodone/APAP 5-325MG [[place] 1 tab PO Q6HR PRN #10 tab 11/15/19 5-325] Lidocaine 5% Patch [Lidoderm 5% 1 patch TOPICAL DAILY PRN 5 Days 07/21/20 Patch] #5 patch Allergies Allergy/AdvReac Type Severity Reaction Status Date / Time Penicillins Allergy Unknown Verified 11/15/19 20:37 Childhood sulfamethoxazole Allergy Unknown Verified 11/15/19 20:37 [From Bactrim] Childhood trimethoprim [From Bactrim] Allergy Unknown Verified 11/15/19 20:37 Childhood Review of Systems ROS Statement: Those systems with pertinent positive or pertinent negative responses have been documented in the HPI. ROS Other: All systems not noted in ROS Statement are negative. Past Medical History Past Medical History: Liver Disease Additional Past Medical History / Comment(s): migraine, sinus problems, hepatitis A and C, History of Any Multi-Drug Resistant Organisms: MRSA Date of last positivie culture/infection: 10/22/19 MDRO Source:: FINGER Past Surgical History: Cholecystectomy Additional Past Surgical History / Comment(s): sinus Past Anesthesia/Blood Transfusion Reactions: No Reported Reaction Past Psychological History: Anxiety, Depression Smoking Status: Current every day smoker Past Alcohol Use History: Occasional Past Drug Use History: Heroin, Marijuana, Methamphetamine, Prescription Drug Abuse - Past Family History Father Family Medical History: Unable to Obtain Mother Family Medical History: Cancer General Exam Limitations: no limitations General appearance: alert, in no apparent distress Head exam: Present: atraumatic, normocephalic, normal inspection Eye exam: Present: normal appearance, PERRL, EOMI. Absent: scleral icterus, conjunctival injection, periorbital swelling ENT exam: Present: normal exam, mucous membranes moist Neck exam: Present: normal inspection, full ROM. Absent: tenderness, meni ngismus, lymphadenopathy Respiratory exam: Present: chest wall tenderness (Patient has right lateral chest wall tenderness without ecchymosis. No step-off.). Absent: respiratory distress, wheezes, rales, rhonchi, stridor Cardiovascular Exam: Present: regular rate, normal rhythm, normal heart sounds. Absent: systolic murmur, diastolic murmur, rubs, gallop, clicks GI/Abdominal exam: Present: soft, normal bowel sounds. Absent: distended, tenderness (No tenderness of the abdomen.), guarding, rebound, rigid Course Vital Signs 11/15/19 20:33 Temperature 98.2 F Pulse Rate 100 Respiratory 17 Rate Blood Pressure 92/70 O2 Sat by Pulse 98 Oximetry Medical Decision Making - Medical Decision Making X-ray shows multiple lateral right rib fractures with minimal displacement. Infiltrate and atelectasis at the right lung base. Patient was given morphine here in the emergency room and sent home with a Tylenol 3 starter pack. She was given a prescription for [place]. Patient was given incentive spirometer and I discussed the risk of pneumonia with her. She was started on azithromycin given infiltrate at right lung base. Patient will follow up with her primary care provider. She will return here for any worsening symptoms.I discussed this case with attending Dr. Umana who agrees with this assessment and treatment plan. - Lab Data Lab Results 11/15/19 Range/Units 20:59 Urine HCG, Qual Not Detected (Not Detectd) Disposition Clinical Impression: Ribs, multiple fractures Disposition: HOME SELF-CARE Condition: Good Instructions (If sedation given, give patient instructions): Rib Fracture (ED) Additional Instructions: Please take Motrin for pain. If pain is severe take [place]. Use lidocaine patches as directed. You can leave one on for 12 hours and then taken off for 12 hours. Use incentive spirometer 10 times every hour. Use the pillow splinting technique as discussed to help alleviate pain when doing this. Take antibiotic as directed. Follow-up with your primary care doctor for repeat x- ray. Return to the emergency room if you have any worsening symptoms. Prescriptions: Lidocaine 5% Patch [Lidoderm 5% Patch] 1 patch TOPICAL DAILY PRN 5 Days #5 patch PRN Reason: Pain HYDROcodone/APAP 5-325MG [[place] 5-325] 1 tab PO Q6HR PRN #10 tab PRN Reason: Pain Azithromycin [Zithromax Z-pack] 250 mg PO DIRECTED #6 tab Is patient prescribed a controlled substance at d/c from ED?: No Referrals: Davie Garza DO [Primary Care Provider] - 1-2 days Time of Disposition: 22:55
[2019-11-15 23:10] VITALS: BP 125/78; PULSE 105; RESP 16
== END 2019-11-15 23:09 | disposition home or self-care (01) ==
LOC: EC 20:30
DX: S22.41XA Multiple fractures of ribs, right side, initial encounter for closed fracture (principal); J98.11 Atelectasis; F17.200 Nicotine dependence, unspecified, uncomplicated; Z88.0 Allergy status to penicillin; Z88.1 Allergy status to other antibiotic agents; Z88.2 Allergy status to sulfonamides; W10.9XXA Fall (on) (from) unspecified stairs and steps, initial encounter
CPT/HCPCS: 81025; 71101; 99283; 96372; J2270

== ENCOUNTER 2019-11-16 00:16 | Observation (INO) | payer OTHER ==
[2019-11-16] MEDS ORDERED: cefTRIAXone IN SWFI 1,000 MG/10 ML SYRINGE IVP STA (01:19)
[2019-11-16] MEDS ORDERED: KETOROLAC 30 MG/ML 1 ML VIAL IVP STA (01:19)
[2019-11-16] MEDS ORDERED: SODIUM CHLORIDE 0.9% 1,000 ML IV STA (01:19)
[2019-11-16] MEDS ORDERED: KETOROLAC 30 MG/ML 1 ML VIAL IVP PRN (01:26)
[2019-11-16] MEDS ORDERED: NALOXONE 0.4 MG/ML 1 ML VIAL IV PRN (01:26)
--- NOTE | 2019-11-16 01:26 | ED ---
General Adult HPI - General Chief complaint: Fall Stated complaint: CAILIN Time Seen by Provider: 11/16/19 01:03 Source: patient, RN notes reviewed Mode of arrival: wheelchair Limitations: no limitations - History of Present Illness Initial comments: 29-year-old female with a past medical history of hepatitis A and C, polysubstance abuse presents to the emergency department for a chief complaint of right side pain. Patient was walking on the stairs about 5 days ago when she fell down about 5 stairs. This was a trip and fall. She did not hit her head or neck. She did not lose consciousness. Patient was seen here in the emergency departments a couple hours ago where she had an x-ray performed showing at least 3 minimally displaced rib fractures on the right lateral rib margin. She was treated with oral medications including for pain and antibiotic therapy and discharged home. Patient however returned as she was having increased pain and shortness of breath.Patient has no other complaints at this time including shortness of breath, abdominal pain, nausea or vomiting, headache, or visual changes. - Related Data Home Medications Medication Instructions Recorded Confirmed Etonogestrel [Nexplanon] 68 mg SQ ONCE 11/15/17 11/15/17 Previous Rx's Medication Instructions Recorded Divalproex ER [Depakote ER] 1,000 mg PO HS #60 tab.er.24h 11/23/17 Nicotine 21Mg/24Hr Patch [Habitrol] 1 patch TRANSDERM DAILY #10 patch 11/23/17 QUEtiapine [SEROquel] 100 mg PO HS #30 tab 11/23/17 hydrOXYzine pamoate [Vistaril] 50 mg PO TID PRN #45 capsule 11/23/17 Azithromycin [Zithromax Z-pack] 250 mg PO DIRECTED #6 tab 05/23/19 methylPREDNISolone Dose Pack 4 mg PO DIRECTED #21 package 05/23/19 [Medrol Dose Pack] Cephalexin [Keflex] 500 mg PO Q6HR #28 cap 07/13/19 Clindamycin HCl 300 mg PO Q6H #40 cap 09/05/19 Doxycycline [Vibramycin] 100 mg PO BID 14 Days #28 capsule 10/22/19 Ibuprofen [Motrin] 600 mg PO Q8HR PRN #20 tab 10/22/19 Allergies Allergy/AdvReac Type Severity Reaction Status Date / Time Penicillins Allergy Unknown Verified 11/15/19 20:37 Childhood sulfamethoxazole Allergy Unknown Verified 11/15/19 20:37 [From Bactrim] Childhood trimethoprim [From Bactrim] Allergy Unknown Verified 11/15/19 20:37 Childhood Review of Systems ROS Statement: Those systems with pertinent positive or pertinent negative responses have been documented in the HPI. ROS Other: All systems not noted in ROS Statement are negative. Past Medical History Past Medical History: Liver Disease Additional Past Medical History / Comment(s): migraine, sinus problems, hepatitis A and C, History of Any Multi-Drug Resistant Organisms: MRSA Date of last positivie culture/infection: 10/22/19 MDRO Source:: FINGER Past Surgical History: Cholecystectomy Additional Past Surgical History / Comment(s): sinus Past Anesthesia/Blood Transfusion Reactions: No Reported Reaction Past Psychological History: Anxiety, Depression Smoking Status: Current every day smoker Past Alcohol Use History: Occasional Past Drug Use History: Heroin, Marijuana, Methamphetamine, Prescription Drug Abuse - Past Family History Father Family Medical History: Unable to Obtain Mother Family Medical History: Cancer General Exam Limitations: no limitations General appearance: alert, in no apparent distress, lethargic Head exam: Present: atraumatic, normocephalic, normal inspection Eye exam: Present: normal appearance, PERRL, EOMI. Absent: scleral icterus, conjunctival injection, periorbital swelling ENT exam: Present: normal exam, mucous membranes moist Neck exam: Present: normal inspection, full ROM. Absent: tenderness, meningismus, lymphadenopathy Respiratory exam: Present: normal lung sounds bilaterally, chest wall tenderness (Patient has right-sided chest wall tenderness without ecchymosis or step-off). Absent: respiratory distress, wheezes, rales, rhonchi, stridor Cardiovascular Exam: Present: regular rate, normal rhythm, normal heart sounds. Absent: systolic murmur, diastolic murmur, rubs, gallop, clicks GI/Abdominal exam: Present: soft, normal bowel sounds. Absent: distended, tenderness, guarding, rebound, rigid Course Vital Signs 11/16/19 00:38 Temperature 98.2 F Pulse Rate 88 Respiratory 18 Rate Blood Pressure 101/66 O2 Sat by Pulse 98 Oximetry Medical Decision Making - Medical Decision Making X-ray of the right ribs shows multiple lateral right rib fractures of the sixth eighth and ninth as well as 10th ribs. No pneumothorax. There is infiltrate and atelectasis in the right lung base. Patient was started on Rocephin and azithromycin. She did receive azithromycin earlier Mollen the emergency room. Patient will be kept on Toradol as she has a history of polysubstance abuse and is lethargic although arousable on presentation to the emergency room. She will be given lidocaine patches. Patient will admitted for pain management and monitoring. Disposition Clinical Impression: Multiple rib fractures, Intractable pain Disposition: ADMITTED IP TO THIS HOSP Is patient prescribed a controlled substance at d/c from ED?: No Referrals: Davie Garza DO [Primary Care Provider] - 1-2 days Time of Disposition: 01:26
[2019-11-16] MEDS ORDERED: LIDOCAINE 5% PATCH TOPICAL STA (01:28)
[2019-11-16 01:43] LABS: Basophils # (A) 0.1 k/uL (0-0.2); Basophils % (A) 1 %; Eosinophils # (A) 0.4 k/uL (0-0.7); Eosinophils % (A) 4 %; HCT 35.5 % (34.0-46.0); HGB 11.9 gm/dL (11.4-16.0); Lymphocytes # (A) 2.5 k/uL (1.0-4.8); Lymphocytes % (A) 23 %; MCH 29.3 pg (25.0-35.0); MCHC 33.4 g/dL (31.0-37.0); MCV 87.7 fL (80.0-100.0); Mean Platelet Volume 8.5; Monocytes # (A) 0.8 k/uL (0-1.0); Monocytes % (A) 7 %; Neutrophils # (A) 6.8 k/uL (1.3-7.7); Neutrophils % (A) 64 %; Platelet Count 189 k/uL (150-450); RBC 4.05 m/uL (3.80-5.40); RDW 13.8 % (11.5-15.5); WBC 10.7 k/uL (3.8-10.6)
[2019-11-16 01:58] LABS: African American GFR (CKD) >90 (>60 ml/min/1.73 sqM); Anion Gap 9 mmol/L; Blood Urea Nitrogen 17 mg/dL (7-17); Calcium 9.2 mg/dL (8.4-10.2); Carbon Dioxide 23 mmol/L (22-30); Chloride 104 mmol/L (98-107); Glucose 122 mg/dL (74-99); Non-African American GFR(CKD) >90 (>60 ml/min/1.73 sqM); Sodium 136 mmol/L (137-145)
[2019-11-16 02:01] LABS: Potassium 4.5 mmol/L (3.5-5.1)
[2019-11-16] MEDS: SODIUM CHLORIDE 0.9% 1,000 ML IV SCH ×2 (03:38→16:40)
[2019-11-16] MEDS: AZITHROMYCIN 500 MG in SODIUM CHLORIDE 0.9% 250 ML IVPB SCH (08:13)
[2019-11-16] MEDS ORDERED: cefTRIAXone IN SWFI 1,000 MG/10 ML SYRINGE IVP SCH (09:00)
[2019-11-16] MEDS ORDERED: HYDROmorphone 1 MG/ML 1 ML SYRINGE IVP PRN (10:56)
[2019-11-16] MEDS: HYDROmorphone 0.5 MG/0.5 ML SYRINGE IVP PRN ×3 (12:52→21:36)
[2019-11-16] MEDS ORDERED: LORazepam 2 MG/ML INJ IV PRN (13:57)
[2019-11-16] MEDS ORDERED: TEMAZEPAM 15 MG CAP PO PRN (13:57)
[2019-11-16] MEDS: NICOTINE 14MG/24HR PATCH TRANSDERM SCH (14:22)
[2019-11-16] MEDS: HYDROcodone/APAP 10-325MG 1 EACH TAB PO PRN ×2 (14:22→20:12)
--- NOTE | 2019-11-16 14:31 | XR ---
EXAMINATION TYPE: XR chest 1V portable DATE OF EXAM: 11/16/2019 CLINICAL HISTORY: Multiple right-sided rib fractures TECHNIQUE: Upright frontal portable view of the chest obtained. COMPARISON: Right rib and chest radiograph 11/15/2019 FINDINGS: The cardiomediastinal silhouette is within normal limits for size. Pulmonary vasculature i s normal. There is no focal air space opacity, pleural effusion, or pneumothorax seen. There is mild atelectasis at the right lung base. There are rib fracture deformities of right ribs 8 and 9 posterol aterally, and deformity of rib 6 anteriorly. IMPRESSION: A few of the right-sided rib fracture deformities are seen on current chest radiograph, w ith degree of displacement unchanged from 11/15/2019. Some of the fractures are better appreciated on prior comparison dedicated rib series. No pneumothorax.
[2019-11-16 15:05] LABS: Appearance,Urine Cloudy (Clear); Bilirubin,Urine Negative (Negative); Blood,Urine Negative (Negative); Color,Urine Yellow; Glucose,Urine (UA) Negative (Negative); Ketones,Urine Negative (Negative); Leukocyte Esterase,Urine Negative (Negative); Mucus,Urine Moderate /hpf; Nitrite,Urine Negative (Negative); PH, Urine 5.5 (5.0-8.0); Protein,Urine Trace (Negative); RBC,Urine 1 /hpf (0-5); Specific Gravity,Urine 1.032 (1.001-1.035); Squamous Epithelial Cell,Urine 16 /hpf (0-4); Urobilinogen,Urine <2.0 mg/dL (<2.0); WBC,Urine 2 /hpf (0-5)
[2019-11-16 15:16] LABS: Cocaine Screen,Urine Not Detected (NotDetected); Phencyclidine Screen,Urine Not Detected (NotDetected); Urn Cannabinoid Scrn Detected (NotDetected)
[2019-11-16 15:17] LABS: Amphetamine Screen,Urine Detected (NotDetected); Barbiturate Screen,Urine Not Detected (NotDetected); Benzodiazepines Screen,Urine Not Detected (NotDetected); Methadone Screen, Urine Not Detected (NotDetected); Opiate Screen,Urine Detected (NotDetected); Oxycodone Screen, Urine Not Detected (NotDetected); Tricyclic Antidepressant,Urine Not Detected (NotDetected)
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
[2019-11-16] MEDS: HEPARIN SODIUM,PORCINE 5,000 UNIT/ML 1 ML VIAL SQ SCH (20:12)
[2019-11-16] MEDS: diphenhydrAMINE 25 MG CAP PO PRN (23:19)
[2019-11-17] MEDS: HYDROmorphone 0.5 MG/0.5 ML SYRINGE IVP PRN ×3 (02:34→10:43)
[2019-11-17] MEDS: HYDROcodone/APAP 10-325MG 1 EACH TAB PO PRN ×2 (04:35→10:42)
[2019-11-17] MEDS: SODIUM CHLORIDE 0.9% 1,000 ML IV SCH (06:07)
[2019-11-17 06:47] LABS: African American GFR (CKD) >90 (>60 ml/min/1.73 sqM); Anion Gap 5 mmol/L; Blood Urea Nitrogen 10 mg/dL (7-17); Calcium 8.5 mg/dL (8.4-10.2); Carbon Dioxide 24 mmol/L (22-30); Chloride 107 mmol/L (98-107); Glucose 96 mg/dL (74-99); Non-African American GFR(CKD) >90 (>60 ml/min/1.73 sqM); Potassium 4.1 mmol/L (3.5-5.1); Sodium 136 mmol/L (137-145)
[2019-11-17] MEDS ORDERED: PANTOPRAZOLE 40 MG TABLET PO SCH (07:30)
[2019-11-17 07:42] LABS: Basophils % (A) 0 %; Eosinophils # (A) 0.2 k/uL (0-0.7); Eosinophils % (A) 3 %; HCT 32.6 % (34.0-46.0); HGB 10.6 gm/dL (11.4-16.0); Lymphocytes # (A) 2.6 k/uL (1.0-4.8); Lymphocytes % (A) 34 %; MCH 28.8 pg (25.0-35.0); MCHC 32.4 g/dL (31.0-37.0); Mean Platelet Volume 7.6; Monocytes # (A) 0.5 k/uL (0-1.0); Monocytes % (A) 6 %; Neutrophils # (A) 4.1 k/uL (1.3-7.7); Neutrophils % (A) 54 %; Platelet Count 233 k/uL (150-450); RBC 3.66 m/uL (3.80-5.40); RDW 13.7 % (11.5-15.5); WBC 7.5 k/uL (3.8-10.6)
[2019-11-17 07:57] VITALS: BP 119/74; PULSE 88; RESP 12; TEMP 98.3
[2019-11-17] MEDS: AZITHROMYCIN 500 MG in SODIUM CHLORIDE 0.9% 250 ML IVPB SCH (08:19)
[2019-11-17] MEDS: HEPARIN SODIUM,PORCINE 5,000 UNIT/ML 1 ML VIAL SQ SCH (08:21)
[2019-11-17] MEDS: NICOTINE 14MG/24HR PATCH TRANSDERM SCH (08:21)
[2019-11-17] MEDS: diphenhydrAMINE 25 MG CAP PO PRN (10:42)
[2019-11-17] MEDS ORDERED: LIDOCAINE 5% PATCH TOPICAL SCH (11:45)
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
== END 2019-11-17 12:10 | disposition home or self-care (01) ==
LOC: EC 00:16 → 1SOBS 01:55
PROVIDERS: ADMIT Hospitalist; ATTEND Hospitalist
DX: S22.41XA Multiple fractures of ribs, right side, initial encounter for closed fracture (principal); J98.11 Atelectasis; E87.1 Hypo-osmolality and hyponatremia; K76.9 Liver disease, unspecified; D72.829 Elevated white blood cell count, unspecified; Z86.19 Personal history of other infectious and parasitic diseases; Z86.14 Personal history of Methicillin resistant Staphylococcus aureus infection; Z87.891 Personal history of nicotine dependence; Z90.49 Acquired absence of other specified parts of digestive tract; F41.9 Anxiety disorder, unspecified; F32.9 Major depressive disorder, single episode, unspecified; F19.11 Other psychoactive substance abuse, in remission; G43.909 Migraine, unspecified, not intractable, without status migrainosus; Z88.0 Allergy status to penicillin; Z88.2 Allergy status to sulfonamides; W10.9XXA Fall (on) (from) unspecified stairs and steps, initial encounter; Z79.3 Long term (current) use of hormonal contraceptives; Z97.5 Presence of (intrauterine) contraceptive device; Z81.8 Family history of other mental and behavioral disorders; Z80.9 Family history of malignant neoplasm, unspecified; Z11.59 Encounter for screening for other viral diseases
CPT/HCPCS: 96361 ×3; 96365; 96366 ×2; 96367; 96372 ×2; 96376 ×3; 96375; 99284; 36415; 80048 ×2; 85025 ×2; 81001; 80306; 71045; G0378 ×2; U0003; S4990 ×2; J1644 ×2; J0456 ×2; J0696; J1885; J1170 ×2

== ENCOUNTER 2019-12-19 13:52 | Emergency (ER) | payer OTHER ==
[2019-12-19 14:03] VITALS: RESP 18; TEMP 98.5
[2019-12-19] MEDS ORDERED: FLUORESCEIN STRIPS 1 MG STRIP RIGHT EYE ONE (15:34)
[2019-12-19] MEDS ORDERED: PROPARACAINE 0.5% OPHTH DROPS 15 ML BTL RIGHT EYE STA (15:34)
--- NOTE | 2019-12-19 15:38 | ED ---
General Adult HPI - General Chief complaint: Eye Problems Stated complaint: Eye Problems Time Seen by Provider: 12/19/19 14:48 Source: patient Mode of arrival: ambulatory Limitations: no limitations - History of Present Illness Initial comments: Dictation was produced using [employer] dictation software. please excuse any grammatical, word or spelling errors. This patient was cared for during a federal and state declared state of emergency secondary to Covid 19 Chief Complaint: 29-year-old female presents with right eye erythema History of Present Illness: 29-year-old female she presents today with right eye erythema. Patient reports that her symptoms began 4 days ago. She denies that her symptoms involving any pain. She does report that there is a mild ache. She does not complain of pain with eye movements. States that she noted some itching to the right eye 4 days ago. It progressed to redness. She denies any visual changes. Patient has any runny nose cough or sore throat. She denies any exposure to anybody with conjunctivitis. No fevers or constitutional symptoms. She does report that when she woke up this morning her eyelids were crusty and she should because of the dried up eye discharge. The ROS documented in this emergency department record has been reviewed and confirmed by me. Those systems with pertinent positive or negative responses have been documented in the HPI. All other systems are other negative and/or noncontributory. PHYSICAL EXAM: General Impression: Alert and oriented x3, not in acute distress HEENT: Normocephalic atraumatic, extra-ocular movements intact, pupils equal and reactive to light bilaterally, mucous membranes moist. Ocular: Conjunctival hemorrhage with sparing of the limbus Cardiovascular: Heart regular rate and rhythm Chest: Able to complete full sentences, no retractions, no tachypnea Abdomen: abdomen soft, non-tender, non-distended, no organomegaly Musculoskeletal: Pulses present and equal in all extremities, no peripheral edema Motor: no focal deficits noted Neurological: CN II-XII grossly intact, no focal motor or sensory deficits noted Skin: Intact with no visualized rashes Psych: Normal affect and mood ED course: 29 y Old female clinical presentation concerning for bacterial conjunctivitis vital signs upon arrival are within acceptable limits. Visual acuity is 20/70 in the right 20/50 on the left. Intraocular pressures bilaterally are equal measuring 20. Fluorescein testing of the right eye does not show any corneal issues. eye discharged was sent for culture. Patient given erythromycin ointment.Case was discussed with on-call ophthalmology because of patient's patient's physical findings. Discussed case with Dr. Trip bell who is willing to see patient in the clinic as soon as possible. Patient is advised to call to make an appointment. He recommends the patient be started on Maxitrol drops. Recommends 1 drop 4 times a day. Plan was discussed with patient she is agreeable. She is told to call the office and make an appointment as soon as possible. - Related Data Home Medications Medication Instructions Recorded Confirmed Etonogestrel [Nexplanon] 1 implant SQ [id number] 11/16/19 11/16/19 Previous Rx's Medication Instructions Recorded Azithromycin [Zithromax Z-pack] 0 mg PO DIRECTED #6 tab 11/17/19 Ibuprofen [Motrin] 400 mg PO Q6HR PRN #40 tab 11/17/19 Pantoprazole [Protonix] 40 mg PO AC-BRKFST #20 tablet. 11/17/19 Sqpmwlje-Rlqfxznfv-Mpkcxtxt 2 drops RIGHT EYE QID #1 bottle 12/19/19 [Maxitrol Ophth Susp] Allergies Allergy/AdvReac Type Severity Reaction Status Date / Time Penicillins Allergy Unknown Verified 12/19/19 14:02 Childhood sulfamethoxazole Allergy Unknown Verified 12/19/19 14:02 [From Bactrim] Childhood trimethoprim [From Bactrim] Allergy Unknown Verified 12/19/19 14:02 Childhood Review of Systems ROS Statement: Those systems with pertinent positive or pertinent negative responses have been documented in the HPI. ROS Other: All systems not noted in ROS Statement are negative. Past Medical History Past Medical History: Liver Disease Additional Past Medical History / Comment(s): migraine, sinus problems, hepatitis A and C, History of Any Multi-Drug Resistant Organisms: MRSA Date of last positivie culture/infection: 10/22/19 MDRO Source:: FINGER Past Surgical History: Cholecystectomy Additional Past Surgical History / Comment(s): sinus Past Anesthesia/Blood Transfusion Reactions: No Reported Reaction Past Psychological History: Anxiety, Depression Smoking Status: Current every day smoker Past Alcohol Use History: Occasional Past Drug Use History: Heroin, Marijuana, Methamphetamine, Prescription Drug Abuse - Past Family History Father Family Medical History: Unable to Obtain Mother Family Medical History: Cancer Sister(s) Family Medical History: No Reported History Son(s) Additional Family Medical History / Comment(s): autistic Daughter(s) Family Medical History: No Reported History General Exam Limitations: no limitations Course Vital Signs 12/19/19 14:00 Temperature 98.5 F Pulse Rate 99 Respiratory 18 Rate Blood Pressure 106/71 O2 Sat by Pulse 97 Oximetry Disposition Clinical Impression: Conjunctivitis Disposition: HOME SELF-CARE Condition: Fair Instructions (If sedation given, give patient instructions): Conjunctivitis (ED) Additional Instructions: Today you're diagnosed with conjunctivitis. Case was discussed with on-call tariff publishing agent Dr. Vogel. He requests that she will call his office to make an appointment. His information is provided to you. You are prescribed eyedrops that you must use 4 times daily. Prescriptions: Osyyejxe-Mussifmwk-Pvvcyvvx [Maxitrol Ophth Susp] 2 drops RIGHT EYE QID #1 bottle Is patient prescribed a controlled substance at d/c from ED?: No Referrals: Stu Vogel MD [STAFF PHYSICIAN] - 1-2 days Time of Disposition: 16:22
[2019-12-19] MEDS ORDERED: ERYTHROMYCIN 5 MG/GM OPHTH OINT 3.5 GM TUBE RIGHT EYE STA (16:06)
[2019-12-19 16:39] VITALS: BP 110/77; PULSE 90
== END 2019-12-19 16:39 | disposition home or self-care (01) ==
LOC: EC 13:52
DX: H10.9 Unspecified conjunctivitis (principal); F17.200 Nicotine dependence, unspecified, uncomplicated; Z88.0 Allergy status to penicillin; Z88.2 Allergy status to sulfonamides; Z96.0 Presence of urogenital implants
CPT/HCPCS: 87070; 87205; 99283

== ENCOUNTER 2019-12-24 00:32 | Emergency (ER) | payer OTHER ==
[2019-12-24] MEDS ORDERED: CLINDAMYCIN 150 MG CAP PO STA (01:15)
[2019-12-24] MEDS ORDERED: KETOROLAC 15 MG/ML 1 ML VIAL IM STA (01:15)
[2019-12-24] MEDS ORDERED: LIDOCAINE 1% INJ 10MG/ML (20 ML MDV) SQ ONE (01:16)
--- NOTE | 2019-12-24 01:22 | ED ---
Skin/Abscess/FB HPI <Hernan Medina - Last Filed: 12/24/19 01:38> - General Source: patient Mode of arrival: ambulatory Limitations: no limitations <Leslie Mata - Last Filed: 12/24/19 01:59> - General Chief complaint: Skin/Abscess/Foreign Body Stated complaint: LT armpit injury - History of Present Illness Initial comments: 29-year-old female patient presents to the emergency department today for evaluation of pain and swelling to the left axilla. Patient states that for the last week she has had symptoms. States that the area seems to have an incised in size. States initially started as more red. Denies any fever or chills. Denies nausea or vomiting. Patient does admit to a history of IV drug use, last use was 1.5 weeks ago. Denies injecting to this area. States she has been squeezing to try and drain, but has not got any output. Does admit to a history of MRSA. Patient denies any recent rash, cough, shortness of breath, chest pain, abdominal pain, diarrhea, constipation, back pain, numbness, tingling, dizziness, weakness, hematuria, dysuria, urinary urgency, urinary frequency, headache, visual changes, or any other complaints. (Leslie Mata) - Related Data Home Medications Medication Instructions Recorded Confirmed Etonogestrel [Nexplanon] 1 implant SQ [id number] 11/16/19 11/16/19 Previous Rx's Medication Instructions Recorded Azithromycin [Zithromax Z-pack] 0 mg PO DIRECTED #6 tab 11/17/19 Ibuprofen [Motrin] 400 mg PO Q6HR PRN #40 tab 11/17/19 Pantoprazole [Protonix] 40 mg PO AC-BRKFST #20 tablet. 11/17/19 Tajlelyz-Dxrxcxmow-Anorlhfw 2 drops RIGHT EYE QID #1 bottle 12/19/19 [Maxitrol Ophth Susp] Ibuprofen [Motrin] 600 mg PO Q8HR PRN #30 tab 12/24/19 clindamycin HCL [Cleocin] 450 mg PO TID #90 cap 12/24/19 Allergies Allergy/AdvReac Type Severity Reaction Status Date / Time Penicillins Allergy Unknown Verified 12/24/19 00:53 Childhood sulfamethoxazole Allergy Unknown Verified 12/24/19 00:53 [From Bactrim] Childhood trimethoprim [From Bactrim] Allergy Unknown Verified 12/24/19 00:53 Childhood Review of Systems ROS Other: All systems not noted in ROS Statement are negative. <Hernan Medina - Last Filed: 12/24/19 01:38> ROS Other: All systems not noted in ROS Statement are negative. <Leslie Mata - Last Filed: 12/24/19 01:59> ROS Statement: Those systems with pertinent positive or pertinent negative responses have been documented in the HPI. Past Medical History Past Medical History: Liver Disease Additional Past Medical History / Comment(s): migraine, sinus problems, hepatitis A and C, History of Any Multi-Drug Resistant Organisms: MRSA Date of last positivie culture/infection: 10/22/19 MDRO Source:: FINGER Past Surgical History: Cholecystectomy Additional Past Surgical History / Comment(s): sinus Past Anesthesia/Blood Transfusion Reactions: No Reported Reaction Past Psychological History: Anxiety, Depression Smoking Status: Current every day smoker Past Alcohol Use History: Occasional Past Drug Use History: Heroin, Marijuana, Methamphetamine, Prescription Drug Abuse - Past Family History Father Family Medical History: Unable to Obtain Mother Family Medical History: Cancer Sister(s) Family Medical History: No Reported History Son(s) Additional Family Medical History / Comment(s): autistic Daughter(s) Family Medical History: No Reported History <Leslie Mata - Last Filed: 12/24/19 01:59> General Exam Limitations: no limitations General appearance: alert, in no apparent distress, other (Physical well- developed, well-nourished adult female patient in no acute distress. Vital signs upon presentation are temperature 98.7F, pulse 99, respirations 17, blood pressure 116/71, pulse ox 96% on room air.) Eye exam: Present: normal appearance, PERRL, EOMI. Absent: scleral icterus, conjunctival injection, periorbital swelling ENT exam: Present: normal exam, normal oropharynx, mucous membranes moist Respiratory exam: Present: normal lung sounds bilaterally. Absent: respiratory distress, wheezes, rales, rhonchi, stridor Cardiovascular Exam: Present: regular rate, normal rhythm, normal heart sounds. Absent: systolic murmur, diastolic murmur, rubs, gallop, clicks Extremities exam: Present: full ROM, normal capillary refill, other (Patient has a 6 cm x 6 cm area of swelling and erythema to the left axilla. Area is firm to touch with no fluctuance. There is tenderness. Skin to the left arm is pink, warm, dry. Cap refills less than 3 seconds. Radial pulses 2+ and equal bilaterally). Absent: tenderness, pedal edema, joint swelling, calf tenderness Neurological exam: Present: alert, oriented X3, CN II-XII intact Psychiatric exam: Present: normal affect, normal mood Skin exam: Present: warm, dry, intact, normal color. Absent: rash <Leslie Mata - Last Filed: 12/24/19 01:59> Course Vital Signs 12/24/19 12/24/19 00:48 01:46 Temperature 98.7 F 98.8 F Pulse Rate 99 90 Respiratory 17 18 Rate Blood Pressure 116/71 144/74 O2 Sat by Pulse 96 97 Oximetry Procedures - Lyons Protocol (Time Out) Procedure Performed:: Abscess incision and drainage Performing Provider: Leslie Mata Nurse: Nitesh Wyatt Timeout Date: 12/24/19 Timeout Time: 01:31 Patient Identification (2 identifiers required): Verbal, Arm Band, Name, Birthdate Patient/Legal Sleep Scientist has Confirmed: Identity, Site, Procedure, Consent Site: Left axilla Site Marked: Yes Site Verified With Patient/Guardian: Yes Final Confirmation: Procedure, Site, Laterality - Incision & Drainage Consent Obtained: verbal consent Indication: Abscess Site: other (Axilla) Size (cm): 6 Anesthetic Used: lidocaine 1% Amount (mLs): 6 I&D Cleaning Method: Betadine Scalpel Used: #11 I&D Drainage Obtained: Blood Culture Obtained?: No Complications: pain Patient Tolerated Procedure: well <Leslie Mata - Last Filed: 12/24/19 01:59> Medical Decision Making <Leslie Mata - Last Filed: 12/24/19 01:59> - Medical Decision Making 29-year-old female patient presented to the emergency department today for evaluation of abscess to the left axilla. Physical examination did reveal 6cm x 6 cm area of swelling with mild erythema overlying. Did attempt incision and drainage with no output appears fluid. We'll start clindamycin as she does have a history of MRSA. We will discharge her to to follow-up with surgeon for further evaluation. She is instructed to follow-up with her primary care physician for recheck in 1-2 days. Return parameters discussed in detail. She verbalizes understanding and agrees with this plan. (Leslie Mata) Disposition Is patient prescribed a controlled substance at d/c from ED?: No <Hernan Medina - Last Filed: 12/24/19 01:38> Is patient prescribed a controlled substance at d/c from ED?: No <Leslie Mata - Last Filed: 12/24/19 01:59> Clinical Impression: Abscess of left axilla, Axillary hidradenitis suppurativa Disposition: HOME SELF-CARE Condition: Good Instructions (If sedation given, give patient instructions): Abscess Incision and Drainage (ED), Abscess (ED) Additional Instructions: Warm compresses to the area 4-5 times daily. Complete antibiotic prescription and full. Follow-up with the surgeon for further evaluation. Follow-up with your primary care physician for recheck in 1-2 days. Return to the emergency department immediately for any new, worsening, or concerning symptoms. Prescriptions: clindamycin HCL [Cleocin] 450 mg PO TID #90 cap Ibuprofen [Motrin] 600 mg PO Q8HR PRN #30 tab PRN Reason: Pain Referrals: Charu Austin MD [STAFF PHYSICIAN] - 1-2 days
[2019-12-24 01:47] VITALS: BP 144/74; PULSE 90; RESP 18; TEMP 98.8
== END 2019-12-24 01:46 | disposition home or self-care (01) ==
LOC: EC 00:32
DX: L02.412 Cutaneous abscess of left axilla (principal); L73.2 Hidradenitis suppurativa; F17.200 Nicotine dependence, unspecified, uncomplicated; Z79.3 Long term (current) use of hormonal contraceptives; Z88.0 Allergy status to penicillin; Z88.2 Allergy status to sulfonamides; Z88.1 Allergy status to other antibiotic agents; Z86.14 Personal history of Methicillin resistant Staphylococcus aureus infection
CPT/HCPCS: 99283; 96372; 10060; J2001; J1885

== ENCOUNTER 2020-03-23 01:47 | Emergency (ER) | payer OTHER ==
[2020-03-23 01:59] VITALS: BP 127/69; PULSE 115; RESP 18; TEMP 98.7
[2020-03-23] MEDS ORDERED: HYDROcodone/APAP 5-325MG 1 EACH TAB PO STA (02:19)
[2020-03-23] MEDS ORDERED: AZITHROMYCIN 500 MG TAB PO STA (02:49)
[2020-03-23] MEDS ORDERED: DEXAMETHASONE ORAL 4 MG/ML VIAL PO ONE (02:55)
--- NOTE | 2020-03-23 03:00 | ED ---
General Adult HPI - General Source: patient, RN notes reviewed, old records reviewed Mode of arrival: ambulatory Limitations: no limitations <Carson Cespedes - Last Filed: 03/23/20 02:58> <Alec Beth - Last Filed: 03/23/20 21:47> - General Chief complaint: ENT Stated complaint: ENT Time Seen by Provider: 03/23/20 02:03 - History of Present Illness Initial comments: 29-year-old female patient to ED for for sore throat for the last 3 days. Denies any cough congestion or fevers. Denies any other complaints. Tolerating oral intake without difficulty. Systemic: Pt denies fatigue, fever/chills, rash. Pt denies weakness, night sweats, weight loss. Neuro: Pt denies headache, visual disturbances, syncope or pre-syncope. HEENT: Pt denies ocular discharge or irritation, otalgia, rhinorrhea, or notable lymphadenopathy. Cardiopulmonary: Pt denies chest pain, SOB, heart palpitations, dyspnea on exertion. Abdominal/GI: Pt denies abdominal pain, n/v/d. : Pt denies dysuria, burning w/ urination, frequency/urgency. Denies new onset urinary or bowel incontinence. MSK: Pt denies myalgia, loss of strength or function in extremities. Neuro: Pt denies new onset weakness, paresthesias. (Carson Cespedes) - Related Data Home Medications Medication Instructions Recorded Confirmed Etonogestrel [Nexplanon] 1 implant SQ [id number] 11/16/19 11/16/19 Previous Rx's Medication Instructions Recorded Azithromycin [Zithromax Z-pack] 0 mg PO DIRECTED #6 tab 11/17/19 Ibuprofen [Motrin] 400 mg PO Q6HR PRN #40 tab 11/17/19 Pantoprazole [Protonix] 40 mg PO AC-BRKFST #20 tablet. 11/17/19 Xjslkyza-Szmagbvkm-Aczilsed 2 drops RIGHT EYE QID #1 bottle 12/19/19 [Maxitrol Ophth Susp] Ibuprofen [Motrin] 600 mg PO Q8HR PRN #30 tab 12/24/19 clindamycin HCL [Cleocin] 450 mg PO TID #90 cap 12/24/19 Azithromycin [Zithromax] 500 mg PO DAILY 4 Days #4 tab 03/23/20 Azithromycin [Zithromax] 500 mg PO DAILY 4 Days #8 tab 03/23/20 Allergies Allergy/AdvReac Type Severity Reaction Status Date / Time Penicillins Allergy Unknown Verified 03/23/20 01:59 Childhood sulfamethoxazole Allergy Unknown Verified 03/23/20 01:59 [From Bactrim] Childhood trimethoprim [From Bactrim] Allergy Unknown Verified 03/23/20 01:59 Childhood Review of Systems ROS Other: All systems not noted in ROS Statement are negative. <Carson Cespedes - Last Filed: 03/23/20 02:58> ROS Other: All systems not noted in ROS Statement are negative. <Alec Beth - Last Filed: 03/23/20 21:47> ROS Statement: Those systems with pertinent positive or pertinent negative responses have been documented in the HPI. Past Medical History Past Medical History: Liver Disease Additional Past Medical History / Comment(s): migraine, sinus problems, hepatitis A and C, History of Any Multi-Drug Resistant Organisms: MRSA Date of last positivie culture/infection: 10/22/19 MDRO Source:: FINGER Past Surgical History: Cholecystectomy Additional Past Surgical History / Comment(s): sinus Past Anesthesia/Blood Transfusion Reactions: No Reported Reaction Past Psychological History: Anxiety, Bipolar, Depression Smoking Status: Current every day smoker Past Alcohol Use History: Occasional Past Drug Use History: Heroin, Marijuana, Methamphetamine, Prescription Drug Abuse - Past Family History Father Family Medical History: Unable to Obtain Mother Family Medical History: Cancer Sister(s) Family Medical History: No Reported History Son(s) Additional Family Medical History / Comment(s): autistic Daughter(s) Family Medical History: No Reported History <Carson Cespedes - Last Filed: 03/23/20 02:58> General Exam Limitations: no limitations <Carson Cespedes - Last Filed: 03/23/20 02:58> - General Exam Comments Initial Comments: Constitutional: NAD, AOX3, Pt has pleasant affect. HEENT: NC/AT, trachea midline, neck supple, no lymphadenopathy. Posterior pharynx moderately erythematous, +2 tonsils with exudates. No peritonsillar abscess. External ears appear normal, without discharge. Mucous membranes moist. Eyes PERRLA, EOM intact. There is no scleral icterus. No pallor noted. Cardiopulmonary: RRR, no murmurs, rubs or gallops, no JVD noted. Lungs CTAB in anterior and posterior melchor. No peripheral edema. Abdominal exam: Abdomen soft and non-distended. Abdomen non-tender to palpation in all 4 quadrants. Bowel sounds active in LLQ. No hepatosplenomegaly. No ecchymosis Neuro: CN II-XII grossly intact. No nuchal rigidity. MSK: Full active ROM in upper and lower extremities, 5/5 stregnth. (Carson Cespedes) Course Vital Signs 03/23/20 01:55 Temperature 98.7 F Pulse Rate 115 H Respiratory 18 Rate Blood Pressure 127/69 O2 Sat by Pulse 99 Oximetry Medical Decision Making <Carson Cespedes - Last Filed: 03/23/20 02:58> <Alec Beth - Last Filed: 03/23/20 21:47> - Medical Decision Making 29-year-old female patient ED sore throat last 2 days. Patient has had erythematous posterior pharynx. Group A strep is positive. Patient was placed on 5 days of azithromycin given dose of Decadron. Patient denies any chance of . Will discharge the patient with outpatient follow up and return precautions. Case discussed with Dr. Sesay. (Carson Cespedes) I saw this patient in conjunction with the physician assistant service manager. I performed independent history and physical exam. Agree with case management. (Alec Beth) - Lab Data Lab Results 03/23/20 Range/Units 02:27 Group A Strep Rapid Positive A (Negative) Disposition Is patient prescribed a controlled substance at d/c from ED?: No <Carson Cespedes - Last Filed: 03/23/20 02:58> <Alec Beth - Last Filed: 03/23/20 21:47> Clinical Impression: Strep pharyngitis Disposition: HOME SELF-CARE Condition: Stable Instructions (If sedation given, give patient instructions): Strep Throat (ED) Additional Instructions: Take antibiotics as directed. Follow up with primary care provider tomorrow. Return here if any worsening symptoms. Prescriptions: Azithromycin [Zithromax] 500 mg PO DAILY 4 Days #4 tab Azithromycin [Zithromax] 500 mg PO DAILY 4 Days #8 tab Referrals: None,Stated [Primary Care Provider] - 1-2 days Jonh Lopez [STAFF PHYSICIAN] - 1-2 days
== END 2020-03-23 03:23 | disposition home or self-care (01) ==
LOC: EC 01:47
DX: J02.0 Streptococcal pharyngitis (principal); F17.200 Nicotine dependence, unspecified, uncomplicated; Z88.0 Allergy status to penicillin; Z88.1 Allergy status to other antibiotic agents; Z88.2 Allergy status to sulfonamides; Z86.14 Personal history of Methicillin resistant Staphylococcus aureus infection
CPT/HCPCS: 87430; 99283; J8540

== ENCOUNTER 2020-03-26 11:49 | Emergency (ER) | payer OTHER ==
[2020-03-26 12:03] VITALS: BP 130/86; PULSE 90; RESP 18; TEMP 98.4
[2020-03-26] MEDS ORDERED: BENZOCAINE SPRAY 1 CAN TOPICAL STA (12:33)
--- NOTE | 2020-03-26 12:44 | ED ---
General Adult HPI - General Chief complaint: ENT Stated complaint: revisit - sorethroat Time Seen by Provider: 03/26/20 12:00 Source: patient, RN notes reviewed, old records reviewed Mode of arrival: ambulatory Limitations: no limitations - History of Present Illness Initial comments: This is a 29-year-old female who presents emergency Department complaining of a sore throat. Patient states it started week ago. Patient states she was here 3 days ago and diagnosed with strep throat but she's been on antibiotics for 3 days and has not gotten any better infection believes is getting worse. Patient denies any fever chills per patient states it hurts extremely bad to swallow. Patient denies any shortness of breath or difficulty breathing. Patient denies any other symptoms at this time. Patient states the pain is mostly on the left side. - Related Data Home Medications Medication Instructions Recorded Confirmed Etonogestrel [Nexplanon] 1 implant SQ [id number] 11/16/19 11/16/19 Previous Rx's Medication Instructions Recorded Azithromycin [Zithromax Z-pack] 0 mg PO DIRECTED #6 tab 11/17/19 Ibuprofen [Motrin] 400 mg PO Q6HR PRN #40 tab 11/17/19 Pantoprazole [Protonix] 40 mg PO AC-BRKFST #20 tablet. 11/17/19 Gvapzwuo-Baapwukqe-Wlbtpclv 2 drops RIGHT EYE QID #1 bottle 12/19/19 [Maxitrol Ophth Susp] Ibuprofen [Motrin] 600 mg PO Q8HR PRN #30 tab 12/24/19 clindamycin HCL [Cleocin] 450 mg PO TID #90 cap 12/24/19 Azithromycin [Zithromax] 500 mg PO DAILY 4 Days #4 tab 03/23/20 Azithromycin [Zithromax] 500 mg PO DAILY 4 Days #8 tab 03/23/20 Dexamethasone [Decadron] 4 mg PO BID #10 tablet 03/26/20 clindamycin HCL [Cleocin] 450 mg PO TID 10 Days #90 cap 03/26/20 Allergies Allergy/AdvReac Type Severity Reaction Status Date / Time Penicillins Allergy Unknown Verified 03/26/20 12:02 Childhood sulfamethoxazole Allergy Unknown Verified 03/26/20 12:02 [From Bactrim] Childhood trimethoprim [From Bactrim] Allergy Unknown Verified 03/26/20 12:02 Childhood Review of Systems ROS Statement: Those systems with pertinent positive or pertinent negative responses have been documented in the HPI. ROS Other: All systems not noted in ROS Statement are negative. Past Medical History Past Medical History: Liver Disease Additional Past Medical History / Comment(s): migraine, sinus problems, hepatitis A and C, History of Any Multi-Drug Resistant Organisms: MRSA Date of last positivie culture/infection: 10/22/19 MDRO Source:: FINGER Past Surgical History: Cholecystectomy Additional Past Surgical History / Comment(s): sinus Past Anesthesia/Blood Transfusion Reactions: No Reported Reaction Past Psychological History: Anxiety, Bipolar, Depression Smoking Status: Current every day smoker Past Alcohol Use History: Occasional Past Drug Use History: Heroin, Marijuana, Methamphetamine, Prescription Drug Abuse - Past Family History Father Family Medical History: Unable to Obtain Mother Family Medical History: Cancer Sister(s) Family Medical History: No Reported History Son(s) Additional Family Medical History / Comment(s): autistic Daughter(s) Family Medical History: No Reported History General Exam - General Exam Comments Initial Comments: GENERAL: Patient is well-developed and well-nourished. Patient is nontoxic and well- hydrated and is in mild distress. ENT: Neck is soft and supple. No significant lymphadenopathy is noted. Oropharynx is clear. Moist mucous membranes. Patient has anterior lymphadenopathy bilaterally in the cervical anterior area. Patient's posterior pharynx is swollen on the left and moving the uvula to the right slightly. EYES: The sclera were anicteric and conjunctiva were pink and moist. Extraocular movements were intact and pupils were equal round and reactive to light. Eyelids were unremarkable. PULMONARY: Unlabored respirations. Good breath sounds bilaterally. No audible rales rhonchi or wheezing was noted. CARDIOVASCULAR: There is a regular rate and rhythm without any murmurs gallops or rubs. ABDOMEN: Soft and nontender with normal bowel sounds. SKIN: Skin is clear with no lesions or rashes and otherwise unremarkable. NEUROLOGIC: Patient is alert and oriented x3. Cranial nerves II through XII are grossly intact. Motor and sensory are also intact. Normal speech, volume and content. Symmetrical smile. MUSCULOSKELETAL: Normal extremities with adequate strength and full range of motion. LYMPHATICS: Anterior cervical lymphadenopathy no posterior adenopathy noted PSYCHIATRIC: Normal psychiatric evaluation. Limitations: no limitations Course Vital Signs 11/30/20 11:59 Temperature 98.4 F Pulse Rate 90 Respiratory 18 Rate Blood Pressure 130/86 O2 Sat by Pulse 99 Oximetry Procedures - Incision & Drainage Consent Obtained: verbal consent Site: other (Pharyngeal abscess) Needle Aspiration Performed?: Yes Irrigation Performed?: No I&D Drainage Obtained: Pus Packing: Other (Unable to get any pus secondary to the fact the patient was unable to tolerate the initial poke) Complications: pain Patient Tolerated Procedure: well (Patient refused to have done a second time to try to get more pus out.) Medical Decision Making - Medical Decision Making I tried to use an 18-gauge needle however patient moves and was unable to get the needle in very far. Patient did have some slight bleeding. Disposition Clinical Impression: Parapharyngeal abscess Disposition: HOME SELF-CARE Condition: Good Prescriptions: clindamycin HCL [Cleocin] 450 mg PO TID 10 Days #90 cap Dexamethasone [Decadron] 4 mg PO BID #10 tablet Is patient prescribed a controlled substance at d/c from ED?: No Referrals: Amanuel Díaz MD [STAFF PHYSICIAN] - 03/27/20 Time of Disposition: 13:04
[2020-03-26] MEDS ORDERED: ACET/COD 300 MG/30 MG STARTER PACK 6 TAB BTL PO STA (12:55)
[2020-03-26] MEDS ORDERED: CLINDAMYCIN 150 MG CAP PO STA (12:55)
[2020-03-26] MEDS ORDERED: Acetaminophen-Codeine 300-30mg TAB PO STA (12:55)
[2020-03-26] MEDS ORDERED: dexAMETHasone 4 MG TAB PO STA (12:55)
[2020-03-26] MEDS ORDERED: HYDROmorphone 0.5 MG/0.5 ML SYRINGE IM STA (13:18)
== END 2020-03-26 13:36 | disposition home or self-care (01) ==
LOC: EC 11:49
DX: J39.0 Retropharyngeal and parapharyngeal abscess (principal); F17.200 Nicotine dependence, unspecified, uncomplicated; Z88.0 Allergy status to penicillin; Z88.1 Allergy status to other antibiotic agents; Z88.2 Allergy status to sulfonamides; Z86.14 Personal history of Methicillin resistant Staphylococcus aureus infection
CPT/HCPCS: 99283; 96372; 42700; J8540; J1170

== ENCOUNTER 2020-04-07 18:18 | Emergency (ER) | payer OTHER ==
[2020-04-07 18:27] VITALS: TEMP 99
[2020-04-07] MEDS ORDERED: BENZOCAINE SPRAY 1 CAN MUCOUS MEM PRN (18:38)
[2020-04-07] MEDS ORDERED: DEXAMETHASONE SOD PHOSPHATE 4 MG/ML 1 ML VIAL IV STA (19:07)
[2020-04-07 19:37] LABS: Basophils # (A) 0.1 k/uL (0-0.2); Basophils % (A) 1 %; Eosinophils # (A) 0.3 k/uL (0-0.7); Eosinophils % (A) 1 %; HCT 37.9 % (34.0-46.0); HGB 12.8 gm/dL (11.4-16.0); Lymphocytes # (A) 3.7 k/uL (1.0-4.8); Lymphocytes % (A) 18 %; MCH 28.5 pg (25.0-35.0); MCHC 33.8 g/dL (31.0-37.0); MCV 84.3 fL (80.0-100.0); Mean Platelet Volume 7.1; Monocytes # (A) 1.2 k/uL (0-1.0); Monocytes % (A) 6 %; Neutrophils # (A) 15.2 k/uL (1.3-7.7); Neutrophils % (A) 73 %; Platelet Count 378 k/uL (150-450); RBC 4.49 m/uL (3.80-5.40); RDW 13.6 % (11.5-15.5); WBC 20.8 k/uL (3.8-10.6)
--- NOTE | 2020-04-07 19:38 | CT ---
EXAMINATION TYPE: CT soft tissue neck w con DATE OF EXAM: 04/07/2020 7:18 PM COMPARISON: None available. HISTORY: Strep throat x 1 week, no improvement. CT DLP: 218.5 mGycm Automated exposure control for dose reduction was used. CONTRAST: CT scan of the neck is performed following with IV Contrast, patient injected with 100 mL of Isovue 3 00. Axial images are obtained, coronal and sagittal reformatted images are reviewed. FINDINGS: Airway: No gross abnormality seen. Parotid/submandibular glands: No gross abnormality seen. Carotid/Vascular Structures: Grossly patent. Osseous Structures: No acute abnormality. Other: There is a 3 x 1.9 cm irregular, mildly enhancing hypoattenuating area within the left palatin e tonsil. There is effacement of the left parapharyngeal fat plane. No significant soft tissue gas. There is mass effect on the airway without occlusion. There are scatt ered multiple enlarged cervical lymph nodes, with index lesion measuring 1.5 cm at the level 3 left c ervical station. IMPRESSION: Findings consistent with 3 cm left tonsillar abscess, appears early. Enlarged cervical lymph nodes, likely reactive.
--- NOTE | 2020-04-07 19:51 | ED ---
ENT HPI <Aaron Velasco - Last Filed: 04/07/20 20:05> - General Source: patient Mode of arrival: ambulatory Limitations: no limitations <Ashley Bañuelos - Last Filed: 04/07/20 22:11> - General Chief complaint: ENT Stated complaint: Poss Strep Time Seen by Provider: 04/07/20 18:33 - History of Present Illness Initial comments: 29-year-old female presenting for chief complaint of abscess. Patient states she is recently diagnosed with strep and had an abscess. She had attempted drainage about a week ago was close to follow up with ENT. Patient states that she never called. Patient states she did not attempt to schedule follow-up with acute antibiotics and steroids as directed. Patient states her symptoms continue to worsen and present for now 2 weeks. Patient denies fevers chills general malaise. Patient admits to pain with swallowing denies any difficulty breathing or tolerating oral secretions patient states she has been able to take her clindamycin. Remaining review of systems negative upon arrival patient appears nontoxic, however had hot potato voice. No tripoding or drooling. (Ashley Bañuelos) - Related Data Home Medications Medication Instructions Recorded Confirmed Etonogestrel [Nexplanon] 1 implant SQ [id number] 11/16/19 11/16/19 Previous Rx's Medication Instructions Recorded Azithromycin [Zithromax Z-pack] 0 mg PO DIRECTED #6 tab 11/17/19 Ibuprofen [Motrin] 400 mg PO Q6HR PRN #40 tab 11/17/19 Pantoprazole [Protonix] 40 mg PO AC-BRKFST #20 tablet. 11/17/19 Huduprfd-Azagdgkqr-Dtvtflci 2 drops RIGHT EYE QID #1 bottle 12/19/19 [Maxitrol Ophth Susp] Ibuprofen [Motrin] 600 mg PO Q8HR PRN #30 tab 12/24/19 clindamycin HCL [Cleocin] 450 mg PO TID #90 cap 12/24/19 Azithromycin [Zithromax] 500 mg PO DAILY 4 Days #4 tab 03/23/20 Azithromycin [Zithromax] 500 mg PO DAILY 4 Days #8 tab 03/23/20 Dexamethasone [Decadron] 4 mg PO BID #10 tablet 03/26/20 clindamycin HCL [Cleocin] 450 mg PO TID 10 Days #90 cap 03/26/20 Moxifloxacin HCl 400 mg PO DAILY 10 Days #10 tab 04/07/20 Moxifloxacin HCl [Avelox] 400 mg PO QAM #10 tablet 04/07/20 Allergies Allergy/AdvReac Type Severity Reaction Status Date / Time Penicillins Allergy Unknown Verified 04/07/20 18:27 Childhood sulfamethoxazole Allergy Unknown Verified 04/07/20 18:27 [From Bactrim] Childhood trimethoprim [From Bactrim] Allergy Unknown Verified 04/07/20 18:27 Childhood Review of Systems ROS Other: All systems not noted in ROS Statement are negative. <Aaron Velasco - Last Filed: 04/07/20 20:05> ROS Other: All systems not noted in ROS Statement are negative. <Ashley Bañuelos - Last Filed: 04/07/20 22:11> ROS Statement: Those systems with pertinent positive or pertinent negative responses have been documented in the HPI. Past Medical History Past Medical History: Liver Disease Additional Past Medical History / Comment(s): migraine, sinus problems, hepatitis A and C, History of Any Multi-Drug Resistant Organisms: MRSA Date of last positivie culture/infection: 10/22/19 MDRO Source:: FINGER Past Surgical History: Cholecystectomy Additional Past Surgical History / Comment(s): sinus Past Anesthesia/Blood Transfusion Reactions: No Reported Reaction Past Psychological History: Anxiety, Bipolar, Depression Smoking Status: Current every day smoker Past Alcohol Use History: Occasional Past Drug Use History: Heroin, Marijuana, Methamphetamine, Prescription Drug Abuse - Past Family History Father Family Medical History: Unable to Obtain Mother Family Medical History: Cancer Sister(s) Family Medical History: No Reported History Son(s) Additional Family Medical History / Comment(s): autistic Daughter(s) Family Medical History: No Reported History <Ashley Bañuelos - Last Filed: 04/07/20 22:11> General Exam Limitations: no limitations <Ashley Bañuelos - Last Filed: 04/07/20 22:11> - General Exam Comments Initial Comments: General: The patient is awake and alert, in no distress, and does not appear acutely ill. Eye: Pupils are equal, round and reactive to light, extra-ocular movements are intact. No nystagmus. There is normal conjunctiva bilaterally. No signs of icterus. Ears, nose, mouth and throat: There are moist mucous membranes and no oral lesions. Patient has obvious left peritonsillar abscess with uvula deviation to the right Neck: The neck is supple, there is no tenderness or JVD. Mild anterior cervical lymphadenopathy Cardiovascular: There is a regular rate and rhythm. No murmur, rub or gallop is appreciated. Respiratory: Lungs are clear to auscultation, respirations are non-labored, breath sounds are equal. No wheezes, stridor, rales, or rhonchi. Musculoskeletal: Normal ROM, no tenderness. Strength 5/5. Sensation intact. Pulses equal bilaterally 2+. Neurological: A&O x 3. CN II-XII intact, There are no obvious motor or sensory deficits. Coordination appears grossly intact. Speech is normal. Skin: Skin is warm and dry and no rashes or lesions are noted. Psychiatric: Cooperative, appropriate mood & affect, normal judgment. (Ashley Bañuelos) Course <Aaron Velasco - Last Filed: 04/07/20 20:05> Vital Signs 04/07/20 04/07/20 04/07/20 18:23 20:58 22:05 Temperature 99 F Pulse Rate 88 110 H 77 Respiratory 18 16 17 Rate Blood Pressure 135/89 123/91 137/70 O2 Sat by Pulse 99 97 98 Oximetry - Reevaluation(s) Reevaluation #1: 04/07/20 20:05 Case was discussed with Dr. Durán (ENT surg). He states that he will be in to the ED shortly to see the patient. (Aaron Velsaco) Procedures - Incision & Drainage Consent Obtained: verbal consent Indication: Left peritonsillar abscess Site: other (Left peritonsillar abscess) Needle Aspiration Performed?: Yes (18-gauge needle; 2 attempts; topical benzocaine spray was used ) I&D Drainage Obtained: Blood Culture Obtained?: No Patient Tolerated Procedure: well <Aaron Velasco - Last Filed: 04/07/20 20:05> Medical Decision Making - Lab Data Result diagrams: 04/07/20 18:59 04/07/20 18:59 <Aaron Velasco - Last Filed: 04/07/20 20:05> - Lab Data Result diagrams: 04/07/20 18:59 04/07/20 18:59 <Ashley Bañuelos - Last Filed: 04/07/20 22:11> - Medical Decision Making 29-year-old female presenting for sore throat. pt was noncompliant with o utpatient f/u. Large abscess on CT attempted drainage that side by attending provider Dr. Velasco using 18g needle aspiration, only blood. no drainage. attempt x [address] with [address] consent[address] Dr. Velasco consulted Dr> Leeanna who evaluated patient in ER performed bedside drainage and dominik mmended discharge with moxifloxacin 400mg daily x 10 days with ENT f/u otupatient. patient agreeable to this care plan states she feels like it is much smaller and feeling better. pt discharged appearing well. (Ashley Bañuelos) - Lab Data Lab Results 04/07/20 04/07/20 04/07/20 Range/Units 18:59 18:59 18:59 WBC 20.8 H (3.8-10.6) k/uL RBC 4.49 (3.80-5.40) m/uL Hgb 12.8 (11.4-16.0) gm/dL Hct 37.9 (34.0-46.0) % MCV 84.3 (80.0-100.0) fL MCH 28.5 (25.0-35.0) pg MCHC 33.8 (31.0-37.0) g/dL RDW 13.6 (11.5-15.5) % Plt Count 378 (150-450) k/uL MPV 7.1 Neutrophils % 73 % Lymphocytes % 18 % Monocytes % 6 % Eosinophils % 1 % Basophils % 1 % Neutrophils # 15.2 H (1.3-7.7) k/uL Lymphocytes # 3.7 (1.0-4.8) k/uL Monocytes # 1.2 H (0-1.0) k/uL Eosinophils # 0.3 (0-0.7) k/uL Basophils # 0.1 (0-0.2) k/uL Sodium 139 (137-145) mmol/L Potassium 4.0 (3.5-5.1) mmol/L Chloride 102 (98-107) mmol/L Carbon Dioxide 30 (22-30) mmol/L Anion Gap 7 mmol/L BUN 13 (7-17) mg/dL Creatinine 0.51 L (0.52-1.04) mg/dL Est GFR (CKD-EPI)AfAm >90 (>60 ml/min/1.73 sqM) Est GFR (CKD-EPI)NonAf >90 (>60 ml/min/1.73 sqM) Glucose 111 H (74-99) mg/dL Plasma Lactic Acid Neno 1.0 (0.7-2.0) mmol/L Calcium 9.6 (8.4-10.2) mg/dL Total Bilirubin 0.7 (0.2-1.3) mg/dL AST 23 (14-36) U/L ALT 23 (4-34) U/L Alkaline Phosphatase 82 (38-126) U/L Total Protein 8.1 (6.3-8.2) g/dL Albumin 4.3 (3.5-5.0) g/dL Disposition <Aaron Velasco - Last Filed: 04/07/20 20:05> Is patient prescribed a controlled substance at d/c from ED?: No Time of Disposition: 21:42 <Ashley Bañuelos - Last Filed: 04/07/20 22:11> Clinical Impression: Strep pharyngitis, Peritonsillar abscess Disposition: HOME SELF-CARE Condition: Good Additional Instructions: Rest with head elevated around the clock, no heavy lifting or bending, soft diet for the next 3 days, call if any problems. Prescriptions: Moxifloxacin HCl [Avelox] 400 mg PO QAM #10 tablet Moxifloxacin HCl 400 mg PO DAILY 10 Days #10 tab Referrals: Davie Garza DO [Primary Care Provider] - 1-2 days Navneet Durán DO [Doctor of Osteopathic Medicine] - 1-2 days
[2020-04-07 20:03] LABS: ALT 23 U/L (4-34); AST 23 U/L (14-36); African American GFR (CKD) >90 (>60 ml/min/1.73 sqM); Albumin 4.3 g/dL (3.5-5.0); Alkaline Phosphatase 82 U/L (38-126); Anion Gap 7 mmol/L; Blood Urea Nitrogen 13 mg/dL (7-17); Calcium 9.6 mg/dL (8.4-10.2); Carbon Dioxide 30 mmol/L (22-30); Chloride 102 mmol/L (98-107); Glucose 111 mg/dL (74-99); Non-African American GFR(CKD) >90 (>60 ml/min/1.73 sqM); Sodium 139 mmol/L (137-145); Total Bilirubin 0.7 mg/dL (0.2-1.3); Total Protein 8.1 g/dL (6.3-8.2)
[2020-04-07] MEDS: HYDROmorphone 0.5 MG/0.5 ML SYRINGE IVP STA ×2 (20:06→21:04)
--- NOTE | 2020-04-07 21:38 | P.GSCN ---
History of Present Illness Consult date: 04/07/20 Reason for Consult: Sore throat Requesting physician: Ashley Bañuelos History of present illness: This patient is a 29-year-old white female who is had a greater than 1 week history of sore throat. She was found have a peritonsillar abscess and attempted drainage was unsuccessful. I was called to the emergency room drain this abscess. The patient has felt trismus over the last 2-3 days. She was treated unsuccessfully with clindamycin orally and complains of a sore throat trismus and odontophagia. She seems to be worsening and the pain is worsening. Review of Systems - Constitutional Reports as per HPI - EENT Ears, nose, mouth and throat: Reports as per HPI - Cardiovascular Reports as per HPI - Respiratory Reports as per HPI - Gastrointestinal Reports as per HPI - Genitourinary Genitourinary: Reports as per HPI Menstruation: Reports as per HPI - Musculoskeletal Reports as per HPI - Integumentary Reports as per HPI - Neurological Reports as per HPI - Psychiatric Reports as per HPI - Endocrine Reports as per HPI - Hematologic/Lymphatic Reports as per HPI Past Medical History Past Medical History: Liver Disease Additional Past Medical History / Comment(s): migraine, sinus problems, hepatitis A and C, History of Any Multi-Drug Resistant Organisms: MRSA Year Discovered:: 10/22/19 MDRO Source:: FINGER Past Surgical History: Cholecystectomy Additional Past Surgical History / Comment(s): sinus Past Anesthesia/Blood Transfusion Reactions: No Reported Reaction Past Psychological History: Anxiety, Bipolar, Depression Smoking Status: Current every day smoker Past Alcohol Use History: Occasional Past Drug Use History: Heroin, Marijuana, Methamphetamine, Prescription Drug Abuse - Past Family History Father Family Medical History: Unable to Obtain Mother Family Medical History: Cancer Sister(s) Family Medical History: No Reported History Son(s) Additional Family Medical History / Comment(s): autistic Daughter(s) Family Medical History: No Reported History Medications and Allergies Home Medications Medication Instructions Recorded Confirmed Type Etonogestrel [Nexplanon] 1 implant SQ [id number] 11/16/19 11/16/19 History Azithromycin [Zithromax Z-pack] 0 mg PO DIRECTED #6 tab 11/17/19 Rx Ibuprofen [Motrin] 400 mg PO Q6HR PRN #40 tab 11/17/19 Rx Pantoprazole [Protonix] 40 mg PO AC-BRKFST #20 tablet. 11/17/19 Rx Xnicygeg-Hjnemkgfq-Scymkpdt 2 drops RIGHT EYE QID #1 bottle 12/19/19 Rx [Maxitrol Ophth Susp] Ibuprofen [Motrin] 600 mg PO Q8HR PRN #30 tab 12/24/19 Rx clindamycin HCL [Cleocin] 450 mg PO TID #90 cap 12/24/19 Rx Azithromycin [Zithromax] 500 mg PO DAILY 4 Days #4 tab 03/23/20 Rx Azithromycin [Zithromax] 500 mg PO DAILY 4 Days #8 tab 03/23/20 Rx Dexamethasone [Decadron] 4 mg PO BID #10 tablet 03/26/20 Rx clindamycin HCL [Cleocin] 450 mg PO TID 10 Days #90 cap 03/26/20 Rx Allergies Allergy/AdvReac Type Severity Reaction Status Date / Time Penicillins Allergy Unknown Verified 04/07/20 18:27 Childhood sulfamethoxazole Allergy Unknown Verified 04/07/20 18:27 [From Bactrim] Childhood trimethoprim [From Bactrim] Allergy Unknown Verified 04/07/20 18:27 Childhood Surgical - Exam Osteopathic Statement: *. No significant issues noted on an osteopathic structural exam other than those noted in the History and Physical/Consult. Vital Signs Temp Pulse Resp BP Pulse Ox 99 F 88 18 135/89 99 04/07/20 18:23 04/07/20 18:23 04/07/20 18:23 04/07/20 18:23 04/07/20 18:23 - General well developed, well nourished - ENT Left tonsillar swelling noted peritonsillar abscess identified normal pinna, normal nares, normal mucosa - Neck no masses - Cardiovascular Rhythm: regular - Abdomen Abdomen: soft - Musculoskeletal normal gait - Psychiatric oriented to time, oriented to person, oriented to place, speech is normal Results - Labs 04/07/20 18:59 04/07/20 18:59 Abnormal Lab Results - Last 24 Hours (Table) 04/07/20 04/07/20 Range/Units 18:59 18:59 WBC 20.8 H (3.8-10.6) k/uL Neutrophils # 15.2 H (1.3-7.7) k/uL Monocytes # 1.2 H (0-1.0) k/uL Creatinine 0.51 L (0.52-1.04) mg/dL Glucose 111 H (74-99) mg/dL Diabetes panel 04/07/20 Range/Units 18:59 Sodium 139 (137-145) mmol/L Potassium 4.0 (3.5-5.1) mmol/L Chloride 102 (98-107) mmol/L Carbon Dioxide 30 (22-30) mmol/L BUN 13 (7-17) mg/dL Creatinine 0.51 L (0.52-1.04) mg/dL Glucose 111 H (74-99) mg/dL Calcium 9.6 (8.4-10.2) mg/dL AST 23 (14-36) U/L ALT 23 (4-34) U/L Alkaline Phosphatase 82 (38-126) U/L Total Protein 8.1 (6.3-8.2) g/dL Albumin 4.3 (3.5-5.0) g/dL Calcium panel 04/07/20 Range/Units 18:59 Calcium 9.6 (8.4-10.2) mg/dL Albumin 4.3 (3.5-5.0) g/dL Pituitary panel 04/07/20 Range/Units 18:59 Sodium 139 (137-145) mmol/L Potassium 4.0 (3.5-5.1) mmol/L Chloride 102 (98-107) mmol/L Carbon Dioxide 30 (22-30) mmol/L BUN 13 (7-17) mg/dL Creatinine 0.51 L (0.52-1.04) mg/dL Glucose 111 H (74-99) mg/dL Calcium 9.6 (8.4-10.2) mg/dL Adrenal panel 04/07/20 Range/Units 18:59 Sodium 139 (137-145) mmol/L Potassium 4.0 (3.5-5.1) mmol/L Chloride 102 (98-107) mmol/L Carbon Dioxide 30 (22-30) mmol/L BUN 13 (7-17) mg/dL Creatinine 0.51 L (0.52-1.04) mg/dL Glucose 111 H (74-99) mg/dL Calcium 9.6 (8.4-10.2) mg/dL Total Bilirubin 0.7 (0.2-1.3) mg/dL AST 23 (14-36) U/L ALT 23 (4-34) U/L Alkaline Phosphatase 82 (38-126) U/L Total Protein 8.1 (6.3-8.2) g/dL Albumin 4.3 (3.5-5.0) g/dL Assessment and Plan (1) Acute tonsillitis Current Visit: Yes Status: Acute Code(s): J03.90 - ACUTE TONSILLITIS, UNSPECIFIED SNOMED Code(s): 78133578 (2) Peritonsillar abscess Current Visit: Yes Status: Acute Code(s): J36 - PERITONSILLAR ABSCESS SNOMED Code(s): 97697642 Plan: This patient underwent an incision and drainage of a left peritonsillar abscess expressing between 5-10 mL of purulent material. The patient tolerated this procedure and we will discharge her on moxifloxacin. She will return to my office on an as-needed basis. She is to rest with her head elevated. Soft diet is recommended. Time with Patient: Greater than 30
--- NOTE | 2020-04-07 21:40 | P.PCN ---
Date of Procedure: 04/07/20 Preoperative Diagnosis: Left peritonsillar abscess Postoperative Diagnosis: Same Procedure(s) Performed: Incision and drainage of a left peritonsillar abscess Anesthesia: local Surgeon: Navneet Durán Estimated Blood Loss (ml): 0 Pathology: none sent Condition: stable Disposition: PACU Indications for Procedure: Patient has a left peritonsillar abscess Operative Findings: Left peritonsillar abscess identified Description of Procedure: This patient was placed in an upright position and topically anesthetized with benzocaine. I then utilized lidocaine with epinephrine for local injection. A needle aspiration was performed and 5 mL of purulence was expressed. A 15 blade was then inserted into the abscess cavity and widened with a hemostat. This expressed even more purulence and the patient tolerated this well. Patient is to follow-up with me as needed. A proximally 5-10 mL of purulence was expressed from this peritonsillar abscess.
[2020-04-07 22:07] VITALS: BP 137/70; PULSE 77; RESP 17
== END 2020-04-07 22:07 | disposition home or self-care (01) ==
LOC: EC 18:18
DX: J36 Peritonsillar abscess (principal); R59.0 Localized enlarged lymph nodes; F17.200 Nicotine dependence, unspecified, uncomplicated; Z88.2 Allergy status to sulfonamides; Z88.1 Allergy status to other antibiotic agents; Z88.0 Allergy status to penicillin; Z79.3 Long term (current) use of hormonal contraceptives
CPT/HCPCS: 36415; 80053; 83605; 85025; 87040; 70491; 99284; 96365; 96375 ×2; 10160; J1100; J0696; J1170; Q9967

== ENCOUNTER 2020-12-23 16:23 | Emergency (ER) | payer OTHER ==
[2020-12-23 16:27] VITALS: BP 124/73; PULSE 117; RESP 18; TEMP 98.8
--- NOTE | 2020-12-23 16:44 | ED ---
General Adult HPI - General Chief complaint: Skin/Abscess/Foreign Body Stated complaint: bug bite Time Seen by Provider: 12/23/20 16:30 Source: patient, RN notes reviewed Mode of arrival: ambulatory Limitations: no limitations - History of Present Illness Initial comments: 30-year-old female presents emergency Department chief complaint of rash on her chest. Patient states his started with which she thought was a small pimple or bug bite. She states she developed a few sores. No fevers chills she states area is tender she has squeezed multiple times and no drainage. Patient does have a history of skin infections she's unsure she's had MRSA. Patient reports ALLERGY to penicillin and Bactrim. - Related Data Home Medications Medication Instructions Recorded Confirmed Etonogestrel [Nexplanon] 1 implant SQ [id number] 11/16/19 11/16/19 Previous Rx's Medication Instructions Recorded Azithromycin [Zithromax Z-pack] 0 mg PO DIRECTED #6 tab 11/17/19 Ibuprofen [Motrin] 400 mg PO Q6HR PRN #40 tab 11/17/19 Pantoprazole [Protonix] 40 mg PO AC-BRKFST #20 tablet. 11/17/19 Ygqnyrvd-Daoiqzpwv-Hnbgprsg 2 drops RIGHT EYE QID #1 bottle 12/19/19 [Maxitrol Ophth Susp] Ibuprofen [Motrin] 600 mg PO Q8HR PRN #30 tab 12/24/19 clindamycin HCL [Cleocin] 450 mg PO TID #90 cap 12/24/19 Azithromycin [Zithromax] 500 mg PO DAILY 4 Days #4 tab 03/23/20 Azithromycin [Zithromax] 500 mg PO DAILY 4 Days #8 tab 03/23/20 Dexamethasone [Decadron] 4 mg PO BID #10 tablet 03/26/20 clindamycin HCL [Cleocin] 450 mg PO TID 10 Days #90 cap 03/26/20 Moxifloxacin HCl 400 mg PO DAILY 10 Days #10 tab 04/07/20 Moxifloxacin HCl [Avelox] 400 mg PO QAM #10 tablet 04/07/20 Clindamycin HCl 300 mg PO Q6HR #40 cap 12/23/20 Allergies Allergy/AdvReac Type Severity Reaction Status Date / Time Penicillins Allergy Unknown Verified 12/23/20 16:27 Childhood sulfamethoxazole Allergy Unknown Verified 12/23/20 16:27 [From Bactrim] Childhood trimethoprim [From Bactrim] Allergy Unknown Verified 12/23/20 16:27 Childhood Review of Systems ROS Statement: Those systems with pertinent positive or pertinent negative responses have been documented in the HPI. ROS Other: All systems not noted in ROS Statement are negative. Past Medical History Past Medical History: Liver Disease Additional Past Medical History / Comment(s): migraine, sinus problems, hepatitis A and C, History of Any Multi-Drug Resistant Organisms: MRSA Date of last positivie culture/infection: 10/22/19 MDRO Source:: FINGER Past Surgical History: Cholecystectomy Additional Past Surgical History / Comment(s): sinus Past Anesthesia/Blood Transfusion Reactions: No Reported Reaction Past Psychological History: Anxiety, Bipolar, Depression Smoking Status: Current every day smoker Past Alcohol Use History: Occasional Past Drug Use History: Heroin, Marijuana, Methamphetamine, Prescription Drug Abuse - Past Family History Father Family Medical History: Unable to Obtain Mother Family Medical History: Cancer Sister(s) Family Medical History: No Reported History Son(s) Additional Family Medical History / Comment(s): autistic Daughter(s) Family Medical History: No Reported History General Exam Limitations: no limitations General appearance: alert, in no apparent distress Head exam: Present: atraumatic, normocephalic, normal inspection Eye exam: Present: normal appearance, PERRL, EOMI. Absent: scleral icterus, conjunctival injection, periorbital swelling Neck exam: Present: normal inspection. Absent: tenderness, meningismus, lymphadenopathy Respiratory exam: Present: normal lung sounds bilaterally. Absent: respiratory distress, wheezes, rales, rhonchi, stridor Cardiovascular Exam: Present: regular rate, normal rhythm, normal heart sounds. Absent: systolic murmur, diastolic murmur, rubs, gallop, clicks Skin exam: Present: warm, dry, intact, normal color, rash (Anterior chest wall there is nonfluctuant open draining wound impression 1 cm with few scattered sores with some purulent drainage noted) Course Vital Signs 12/23/20 16:24 Temperature 98.8 F Pulse Rate 117 H Respiratory 18 Rate Blood Pressure 124/73 O2 Sat by Pulse 95 Oximetry Medical Decision Making - Medical Decision Making Patient has evidence of cellulitis, abscess on her chest we discussed possible shingles though felt less likely be started on oral antibiotics we discussed wound care and return parameters. Disposition Clinical Impression: Chest wall abscess Disposition: HOME SELF-CARE Condition: Stable Instructions (If sedation given, give patient instructions): Abscess (ED) Additional Instructions: Please return to the Emergency Department if symptoms worsen or any other concerns. Prescriptions: Clindamycin HCl 300 mg PO Q6HR #40 cap Is patient prescribed a controlled substance at d/c from ED?: No Referrals: Davie Garza DO [Primary Care Provider] - 1-2 days Time of Disposition: 16:43
== END 2020-12-23 17:12 | disposition home or self-care (01) ==
LOC: EC 16:23
DX: L02.213 Cutaneous abscess of chest wall (principal); F41.9 Anxiety disorder, unspecified; F31.9 Bipolar disorder, unspecified; F17.200 Nicotine dependence, unspecified, uncomplicated; F12.90 Cannabis use, unspecified, uncomplicated; Z88.0 Allergy status to penicillin; Z88.1 Allergy status to other antibiotic agents; Z88.2 Allergy status to sulfonamides; Z90.49 Acquired absence of other specified parts of digestive tract; Z86.14 Personal history of Methicillin resistant Staphylococcus aureus infection
CPT/HCPCS: 99282

== ENCOUNTER 2021-11-25 09:22 | Emergency (ER) | payer OTHER ==
[2021-11-25 09:40] VITALS: BP 117/64; PULSE 119; RESP 18; TEMP 98.3
[2021-11-25] MEDS ORDERED: IBUPROFEN 600 MG TAB PO STA (09:59)
--- NOTE | 2021-11-25 10:01 | ED ---
General Adult HPI - General Chief complaint: Skin/Abscess/Foreign Body Stated complaint: Face injury Time Seen by Provider: 11/25/21 09:42 Source: patient, RN notes reviewed Mode of arrival: ambulatory Limitations: no limitations - History of Present Illness Initial comments: This a 31-year-old female presents emergency Department chief complaint abscess of her nose. Patient states started 3 days ago after picking at it. Patient states is increased swelling, discomfort. Patient does have a long history of drug abuse. Patient asked requesting STD testing by urine. Patient states she is asymptomatic has no dysuria. Patient denies any chance . Patient offers no other complaints. - Related Data Home Medications Medication Instructions Recorded Confirmed Etonogestrel [Nexplanon] 1 implant SQ [id number] 11/16/19 11/16/19 Previous Rx's Medication Instructions Recorded Azithromycin [Zithromax Z-pack] 0 mg PO DIRECTED #6 tab 11/17/19 Ibuprofen [Motrin] 400 mg PO Q6HR PRN #40 tab 11/17/19 Pantoprazole [Protonix] 40 mg PO AC-BRKFST #20 tablet. 11/17/19 Xtwwbiaq-Qfvzldrcr-Tuszscmt 2 drops RIGHT EYE QID #1 bottle 12/19/19 [Maxitrol Ophth Susp] Ibuprofen [Motrin] 600 mg PO Q8HR PRN #30 tab 12/24/19 clindamycin HCL [Cleocin] 450 mg PO TID #90 cap 12/24/19 Azithromycin [Zithromax] 500 mg PO DAILY 4 Days #4 tab 03/23/20 Azithromycin [Zithromax] 500 mg PO DAILY 4 Days #8 tab 03/23/20 clindamycin HCL [Cleocin] 450 mg PO TID 10 Days #90 cap 03/26/20 dexAMETHasone [Decadron] 4 mg PO BID #10 tablet 03/26/20 Moxifloxacin HCl [Avelox] 400 mg PO DAILY 10 Days #10 tab 04/07/20 Moxifloxacin HCl [Avelox] 400 mg PO QAM #10 tablet 04/07/20 clindamycin HCL [Clindamycin HCl] 300 mg PO Q6HR #40 cap 12/23/20 Ibuprofen [Motrin] 600 mg PO Q8HR PRN #20 tab 11/25/21 clindamycin HCL 300 mg PO QID #40 cap 11/25/21 Allergies Allergy/AdvReac Type Severity Reaction Status Date / Time Penicillins Allergy Unknown Verified 11/25/21 09:40 Childhood sulfamethoxazole Allergy Unknown Verified 11/25/21 09:40 [From Bactrim] Childhood trimethoprim [From Bactrim] Allergy Unknown Verified 11/25/21 09:40 Childhood Review of Systems ROS Statement: Those systems with pertinent positive or pertinent negative responses have been documented in the HPI. ROS Other: All systems not noted in ROS Statement are negative. Past Medical History Past Medical History: Liver Disease Additional Past Medical History / Comment(s): migraine, sinus problems, hepatitis A and C, History of Any Multi-Drug Resistant Organisms: MRSA Date of last positivie culture/infection: 10/22/19 MDRO Source:: FINGER Past Surgical History: Cholecystectomy Additional Past Surgical History / Comment(s): sinus Past Anesthesia/Blood Transfusion Reactions: No Reported Reaction Past Psychological History: Anxiety, Bipolar, Depression Smoking Status: Current every day smoker Past Alcohol Use History: Occasional Past Drug Use History: Heroin, Marijuana, Methamphetamine, Prescription Drug Abuse - Past Family History Father Family Medical History: Unable to Obtain Mother Family Medical History: Cancer Sister(s) Family Medical History: No Reported History Son(s) Additional Family Medical History / Comment(s): autistic Daughter(s) Family Medical History: No Reported History General Exam Limitations: no limitations General appearance: alert, in no apparent distress Head exam: Present: atraumatic, normocephalic, normal inspection Eye exam: Present: normal appearance, PERRL, EOMI. Absent: scleral icterus, conjunctival injection, periorbital swelling ENT exam: Present: mucous membranes moist. Absent: normal exam (Multiple sores of the face, skin noted, there is some swelling on the nasal bridge primarily on the left side, swelling on the left nostril) Neck exam: Present: normal inspection, full ROM. Absent: tenderness, meningismus, lymphadenopathy Respiratory exam: Present: normal lung sounds bilaterally. Absent: respiratory distress, wheezes, rales, rhonchi, stridor Cardiovascular Exam: Present: regular rate, normal rhythm, normal heart sounds. Absent: systolic murmur, diastolic murmur, rubs, gallop, clicks Course Vital Signs 11/25/21 09:36 Temperature 98.3 F Pulse Rate 119 H Respiratory 18 Rate Blood Pressure 117/64 O2 Sat by Pulse 97 Oximetry Medical Decision Making - Medical Decision Making Patient has a history of skin infections, drug abuse SVT testing was sent off. She is asymptomatic. Urinalysis was sent off for testing patient was started on clindamycin return parameters were discussed. Disposition Clinical Impression: Nasal abscess, Screening for STDs (sexually transmitted diseases) Disposition: HOME SELF-CARE Instructions (If sedation given, give patient instructions): Abscess (ED) Additional Instructions: Please return to the Emergency Department if symptoms worsen or any other concerns. Prescriptions: clindamycin HCL 300 mg PO QID #40 cap Ibuprofen [Motrin] 600 mg PO Q8HR PRN #20 tab PRN Reason: Pain Is patient prescribed a controlled substance at d/c from ED?: No Referrals: Davie Garza DO [Primary Care Provider] - 1-2 days Time of Disposition: 10:01
[2021-11-25 10:35] LABS: Appearance,Urine Turbid (Clear); Bacteria,Urine Rare /hpf; Bilirubin,Urine 1+ (Negative); Blood,Urine Negative (Negative); Color,Urine Yellow; Glucose,Urine (UA) Negative (Negative); Ketones,Urine 2+ (Negative); Leukocyte Esterase,Urine Large (Negative); Mucus,Urine Many /hpf; Nitrite,Urine Negative (Negative); Protein,Urine 1+ (Negative); RBC,Urine 3 /hpf (0-5); Specific Gravity,Urine 1.032 (1.001-1.035); Squamous Epithelial Cell,Urine 65 /hpf (0-4); WBC,Urine 19 /hpf (0-5)
== END 2021-11-25 10:19 | disposition home or self-care (01) ==
LOC: EC 09:22
DX: J34.0 Abscess, furuncle and carbuncle of nose (principal); F17.200 Nicotine dependence, unspecified, uncomplicated; Z11.3 Encounter for screening for infections with a predominantly sexual mode of transmission; Z88.0 Allergy status to penicillin; Z88.2 Allergy status to sulfonamides
CPT/HCPCS: 81001; 81025; 87086; 99283

== ENCOUNTER 2021-11-30 16:45 | Emergency (ER) | payer OTHER ==
[2021-11-30 16:50] VITALS: RESP 16
[2021-11-30] MEDS ORDERED: IBUPROFEN 600 MG STARTER PACK 4 TAB BTL PO STA (16:59)
[2021-11-30] MEDS ORDERED: ACET/COD 300 MG/30 MG STARTER PACK 6 TAB BTL PO STA (16:59)
--- NOTE | 2021-11-30 17:02 | ED ---
Skin/Abscess/FB HPI - General Chief complaint: Skin/Abscess/Foreign Body Stated complaint: Facial Swelling Time Seen by Provider: 11/30/21 16:51 Source: patient Mode of arrival: ambulatory Limitations: no limitations - History of Present Illness Initial comments: This is a pleasant 31-year-old female presents for recheck of a nasal abscess. Patient states she's been on clindamycin and has been sporadically applying warm compresses. Patient states she feels like it is getting worse. Abscess noted to the left side of her nose. Apparently this started after she picked at it. Patient does have a history of methamphetamine abuse. Patient denying chance of . Denies fever or chills. Patient states the area is quite painful an d she is having a lot of discomfort. She is getting purulent drainage from the area. No headache, no fever or chills, no changes in vision or hearing, no sore throat or difficulty with speech, no neck pain, no chest pain or shortness of breath, no abdominal pain, no nausea or vomiting, no changes in urination or bowel movements, no numbness or tingling, no extremity pain, Past medical, surgical, social, and family history reviewed. - Related Data Home Medications Medication Instructions Recorded Confirmed Etonogestrel [Nexplanon] 1 implant SQ [id number] 11/16/19 11/16/19 Previous Rx's Medication Instructions Recorded Azithromycin [Zithromax Z-pack] 0 mg PO DIRECTED #6 tab 11/17/19 Ibuprofen [Motrin] 400 mg PO Q6HR PRN #40 tab 11/17/19 Pantoprazole [Protonix] 40 mg PO AC-BRKFST #20 tablet. 11/17/19 Oomlxpjm-Zipzdeabg-Jfcitxbw 2 drops RIGHT EYE QID #1 bottle 12/19/19 [Maxitrol Ophth Susp] Ibuprofen [Motrin] 600 mg PO Q8HR PRN #30 tab 12/24/19 clindamycin HCL [Cleocin] 450 mg PO TID #90 cap 12/24/19 Azithromycin [Zithromax] 500 mg PO DAILY 4 Days #4 tab 03/23/20 Azithromycin [Zithromax] 500 mg PO DAILY 4 Days #8 tab 03/23/20 clindamycin HCL [Cleocin] 450 mg PO TID 10 Days #90 cap 03/26/20 dexAMETHasone [Decadron] 4 mg PO BID #10 tablet 03/26/20 Moxifloxacin HCl [Avelox] 400 mg PO DAILY 10 Days #10 tab 04/07/20 Moxifloxacin HCl [Avelox] 400 mg PO QAM #10 tablet 04/07/20 clindamycin HCL [Clindamycin HCl] 300 mg PO Q6HR #40 cap 12/23/20 Ibuprofen [Motrin] 600 mg PO Q8HR PRN #20 tab 11/25/21 clindamycin HCL 300 mg PO QID #40 cap 11/25/21 Doxycycline [Vibramycin] 100 mg PO BID 1 Days #20 each 11/30/21 Allergies Allergy/AdvReac Type Severity Reaction Status Date / Time Penicillins Allergy Unknown Verified 11/30/21 16:50 Childhood sulfamethoxazole Allergy Unknown Verified 11/30/21 16:50 [From Bactrim] Childhood trimethoprim [From Bactrim] Allergy Unknown Verified 11/30/21 16:50 Childhood Review of Systems ROS Statement: Those systems with pertinent positive or pertinent negative responses have been documented in the HPI. ROS Other: All systems not noted in ROS Statement are negative. Past Medical History Past Medical History: Liver Disease Additional Past Medical History / Comment(s): migraine, sinus problems, hepatitis A and C, History of Any Multi-Drug Resistant Organisms: MRSA Date of last positivie culture/infection: 10/22/19 MDRO Source:: FINGER Past Surgical History: Cholecystectomy Additional Past Surgical History / Comment(s): sinus Past Anesthesia/Blood Transfusion Reactions: No Reported Reaction Past Psychological History: Anxiety, Bipolar, Depression Smoking Status: Current every day smoker Past Alcohol Use History: Occasional Past Drug Use History: Heroin, Marijuana, Methamphetamine, Prescription Drug Abuse - Past Family History Father Family Medical History: Unable to Obtain Mother Family Medical History: Cancer Sister(s) Family Medical History: No Reported History Son(s) Additional Family Medical History / Comment(s): autistic Daughter(s) Family Medical History: No Reported History General Exam - General Exam Comments Initial Comments: In mild distress secondary to pain related to the left side of her nose. Limitations: no limitations General appearance: in distress Head exam: Present: atraumatic, normocephalic, normal inspection Eye exam: Present: normal appearance, PERRL, EOMI. Absent: scleral icterus, conjunctival injection, periorbital swelling ENT exam: Present: normal exam, normal oropharynx, mucous membranes moist, normal external ear exam, other (Patient has erythema with a draining abscess to left 7 nose. Diameter is 1.5 cm. Appears to be no communication with the insid e of the nose. Minimal surrounding erythema. No significant cellulitis. Does not appear to involve the other facial areas. Extraocular movements are intact.). Absent: mucous membranes dry Neck exam: Present: normal inspection, full ROM. Absent: tenderness, meningismus, lymphadenopathy Respiratory exam: Present: normal lung sounds bilaterally. Absent: respiratory distress, wheezes, rales, rhonchi, stridor Cardiovascular Exam: Present: regular rate, normal rhythm, normal heart sounds. Absent: systolic murmur, diastolic murmur, rubs, gallop, clicks GI/Abdominal exam: Present: soft, normal bowel sounds. Absent: distended, tenderness, guarding, rebound, rigid Extremities exam: Present: normal inspection, full ROM, normal capillary refill. Absent: tenderness, pedal edema, joint swelling, calf tenderness Back exam: Present: normal inspection Neurological exam: Present: alert, oriented X3, CN II-XII intact Psychiatric exam: Present: normal affect, normal mood Skin exam: Present: warm, dry, intact, normal color. Absent: rash Course Vital Signs 11/30/21 16:47 Temperature 99.2 F Pulse Rate 88 Respiratory 16 Rate Blood Pressure 142/85 O2 Sat by Pulse 99 Oximetry Medical Decision Making - Medical Decision Making Patient has a isolated abscess left side of her nose. Does not appear to have any symptoms related to systemic disease. There is no confusion. No fever. Does not appear to involve the deeper fascial tissues. No ocular involvement. Movements are intact. I'm going to switch the patient's antibiotic from clindamycin to doxycycline. I discussed more adamant warm compresses with the patient. At least 5 times per day if not more. We'll have the patient recheck with her regular physician 48 hours without fail. I did agree to give the patient a Tylenol with Codeine starter pack. Also an ibuprofen starter pack. Patient was counseled extensively on return parameters. Patient voiced understanding. All questions answered. Patient was told to return to the ER for any signs or symptoms worsen. Told to return immediately if any other problems arise. All questions answered. Treatment plan discussed. Patient in agreement Every effort has been made to ensure accuracy of this dictation. However, due to the limitations of electronic medical records and dictation devices, errors in charting still occur. [employer] Dr. Bocanegra Disposition Clinical Impression: Nasal abscess, Abscess of external nose Disposition: HOME SELF-CARE Condition: Stable Instructions (If sedation given, give patient instructions): Abscess (ED) Additional Instructions: Stopped the clindamycin. Apply warm compresses for 10-15 minutes at time at least 5 times per day. Follow-up with your regular doctor in 48 hours for recheck. Tell your doctor that we did send a culture. Follow-up with your regular physician as directed. Return to the ER immediately if any symptoms worsen, new symptoms arise, or any other problems develop. Prescriptions: Doxycycline [Vibramycin] 100 mg PO BID 1 Days #20 each Is patient prescribed a controlled substance at d/c from ED?: No Referrals: Davie Garza DO [Primary Care Provider] - 12/02/21 8:00 am Time of Disposition: 17:01
[2021-11-30 18:01] VITALS: BP 128/74; PULSE 78; TEMP 98.2
== END 2021-11-30 18:00 | disposition home or self-care (01) ==
LOC: EC 16:45
DX: J32.9 Chronic sinusitis, unspecified (principal); J34.0 Abscess, furuncle and carbuncle of nose; F17.200 Nicotine dependence, unspecified, uncomplicated; Z88.0 Allergy status to penicillin; Z88.2 Allergy status to sulfonamides; Z88.8 Allergy status to other drugs, medicaments and biological substances
CPT/HCPCS: 87070; 87205; 99282

== ENCOUNTER 2024-05-16 19:04 | Emergency (ER) | payer OTHER ==
--- NOTE | 2024-05-16 20:25 | ED ---
General Adult HPI - General Source: patient Mode of arrival: ambulatory <Ezequiel Wolf - Last Filed: 05/16/24 20:24> <Meri Cook - Last Filed: 05/22/24 01:43> - General Chief complaint: Nausea/Vomiting/Diarrhea Stated complaint: nausea and vomiting Time Seen by Provider: 05/16/24 20:24 - History of Present Illness Initial comments: 33-year-old female presenting chief complaint of nausea and vomiting. Patient is currently 12 weeks . States has been ongoing for the last 2 days. She was recently treated for cellulitis with Keflex, she has been on the antibiotics for the last 4 days. She reports that the cellulitis which was present on the left side of her groin has improved, however she states she was told that if she started vomiting to be seen (Ezequiel Wolf) 33-year-old female presents to the emergency department for evaluation of nausea and vomiting. She reports that she is 12 weeks . She reports nausea and vomiting for the past 2 days. Reports normal bowel movements. Denies abdominal pain. Patient states that she has been on antibiotics for 4 days for cellulitis in her groin. She states that there was significant swelling which does seem to be improving. She denies any fever, chills. (Meri Cook) - Related Data Home Medications Medication Instructions Recorded Confirmed Etonogestrel [Nexplanon] 1 implant SQ [id number] 11/16/19 11/16/19 Previous Rx's Medication Instructions Recorded Azithromycin [Zithromax Z-pack] 0 mg PO DIRECTED #6 tab 11/17/19 Ibuprofen [Motrin] 400 mg PO Q6HR PRN #40 tab 11/17/19 Pantoprazole [Protonix] 40 mg PO AC-BRKFST #20 tablet. 11/17/19 Mptbfnwq-Ddjuiheal-Malrvdgv 2 drops RIGHT EYE QID #1 bottle 12/19/19 [Maxitrol Ophth Susp] Ibuprofen [Motrin] 600 mg PO Q8HR PRN #30 tab 12/24/19 clindamycin HCL [Cleocin] 450 mg PO TID #90 cap 12/24/19 Azithromycin [Zithromax] 500 mg PO DAILY 4 Days #4 tab 03/23/20 Azithromycin [Zithromax] 500 mg PO DAILY 4 Days #8 tab 03/23/20 clindamycin HCL [Cleocin] 450 mg PO TID 10 Days #90 cap 03/26/20 dexAMETHasone [Decadron] 4 mg PO BID #10 tablet 03/26/20 Moxifloxacin HCl [Avelox] 400 mg PO DAILY 10 Days #10 tab 04/07/20 Moxifloxacin HCl [Avelox] 400 mg PO QAM #10 tablet 04/07/20 clindamycin HCL [Clindamycin HCl] 300 mg PO Q6HR #40 cap 12/23/20 Ibuprofen [Motrin] 600 mg PO Q8HR PRN #20 tab 11/25/21 clindamycin HCL 300 mg PO QID #40 cap 11/25/21 Doxycycline [Vibramycin] 100 mg PO BID 1 Days #20 each 11/30/21 clindamycin HCL 300 mg PO QID #40 cap 05/16/24 Allergies Allergy/AdvReac Type Severity Reaction Status Date / Time Penicillins Allergy Unknown Verified 05/16/24 19:22 Childhood sulfamethoxazole Allergy Unknown Verified 05/16/24 19:22 [From Bactrim] Childhood trimethoprim [From Bactrim] Allergy Unknown Verified 05/16/24 19:22 Childhood Review of Systems ROS Other: All systems not noted in ROS Statement are negative. <Ezequiel Wolf - Last Filed: 05/16/24 20:24> ROS Other: All systems not noted in ROS Statement are negative. <Meri Cook - Last Filed: 05/22/24 01:43> ROS Statement: Those systems with pertinent positive or pertinent negative responses have been documented in the HPI. Past Medical History Past Medical History: Liver Disease Additional Past Medical History / Comment(s): migraine, sinus problems, hepatitis A and C, History of Any Multi-Drug Resistant Organisms: MRSA Date of last positivie culture/infection: 11/30/21 MDRO Source:: Nose Past Surgical History: Cholecystectomy Additional Past Surgical History / Comment(s): sinus Past Anesthesia/Blood Transfusion Reactions: No Reported Reaction Past Psychological History: Anxiety, Bipolar, Depression Smoking Status: Current every day smoker Past Alcohol Use History: Occasional Past Drug Use History: Heroin, Marijuana, Methamphetamine, Prescription Drug Abuse - Past Family History Father Family Medical History: Unable to Obtain Mother Family Medical History: Cancer Sister(s) Family Medical History: No Reported History Son(s) Additional Family Medical History / Comment(s): autistic Daughter(s) Family Medical History: No Reported History <Ezequiel Wolf - Last Filed: 05/16/24 20:24> General Exam <Ezequiel Wolf - Last Filed: 05/16/24 20:24> Limitations: no limitations General appearance: alert, in no apparent distress Head exam: Present: atraumatic, normocephalic, normal inspection Eye exam: Present: normal appearance, PERRL, EOMI. Absent: scleral icterus, conjunctival injection, periorbital swelling ENT exam: Present: normal exam, mucous membranes moist Respiratory exam: Present: normal lung sounds bilaterally. Absent: respiratory distress, wheezes, rales, rhonchi, stridor Cardiovascular Exam: Present: regular rate, normal rhythm, normal heart sounds. Absent: systolic murmur, diastolic murmur, rubs, gallop, clicks GI/Abdominal exam: Present: soft, normal bowel sounds. Absent: distended, tenderness, guarding, rebound, rigid Neurological exam: Present: alert, oriented X3 Psychiatric exam: Present: normal affect, normal mood Skin exam: Present: warm, dry, erythema (Erythema and induration to the left inguinal area). Absent: intact, normal color, rash <Meri Cook - Last Filed: 05/22/24 01:43> - General Exam Comments Initial Comments: Visual Physical Exam Vital signs reviewed General: Well-appearing, nontoxic, no acute distress. Head: Normocephalic, atraumatic Eyes: PERRLA, EOMI ENT: Airway patent Chest: Nonlabored breathing Skin: No visual rash, normal skin tone Neuro: Alert and oriented 3 Musculoskeletal: No gross abnormalities (Ezequiel Wolf) Course Vital Signs 05/16/24 05/16/24 05/16/24 19:19 22:12 22:43 Temperature 98.3 F 98.4 F Pulse Rate 68 74 16 L Respiratory 18 18 16 Rate Blood Pressure 143/86 114/77 119/76 O2 Sat by Pulse 100 100 98 Oximetry Medical Decision Making <Ezequiel Wolf - Last Filed: 05/16/24 20:24> - Lab Data Result diagrams: 05/16/24 20:38 05/16/24 20:38 <JohnniejazMeri vasquez - Last Filed: 05/22/24 01:43> - Medical Decision Making I performed the quick note portion of this visit, electronically signed Ezequiel Wolf PA-C (Ezequiel Wolf) Was pt. sent in by a medical professional or institution (MONIKA Wei, PEDIGREE RESEARCHER, urgent care, hospital, or [facility]...) When possible be specific @ -No Did you speak to anyone other than the patient for history (EMS, parent, family, police, friend...)? What history was obtained from this source @ -No Did you review nursing and triage notes (agree or disagree)? Why? @ -I reviewed and agree with nursing and triage notes Were old charts reviewed (outside hosp., previous admission, EMS record, old EKG, old radiological studies, urgent care reports/EKG's, [facility] records)? Report findings @ -No old charts were reviewed Differential Diagnosis (chest pain, altered mental status, abdominal pain women, abdominal pain men, vaginal bleeding, weakness, fever, dyspnea, syncope, headache, dizziness, GI bleed, back pain, seizure, CVA, palpatations, mental health, musculoskeletal)? @ -Cellulitis, sepsis, nausea and vomiting , this list is not all inclusive EKG interpreted by me (3pts min.). @ -None X-rays interpreted by me (1pt min.). @ -None done CT interpreted by me (1pt min.). @ -None done U/S interpreted by me (1pt. min.). @ -None done What testing was considered but not performed or refused? (CT, X-rays, U/S, labs)? Why? @ -None What meds were considered but not given or refused? Why? @ -None Did you discuss the management of the patient with other professionals (professionals i.e. MONIKA Wei, PEDIGREE RESEARCHER, lab, RT, psych nurse, health care social worker, head of digital advertising & integration, teacher, environmental health officer, case aide)? Give summary @ -No Was smoking cessation discussed for >3mins.? @ -No Was critical care preformed (if so, how long)? @ -No Were there social determinants of health that impacted care today? How? (Homelessness, low income, unemployed, alcoholism, drug addiction, transportation, low edu. Level, literacy, decrease access to med. care, correction, rehab)? @ -No Was there de-escalation of care discussed even if they declined (Discuss DNR or withdrawal of care, Hospice)? DNR status @ -No What co-morbidities impacted this encounter? (DM, HTN, Smoking, COPD, CAD, Cancer, CVA, ARF, Chemo, Hep., AIDS, mental health diagnosis, sleep apnea, morbid obesity)? @ -None Was patient admitted / discharged? Hospital course, mention meds given and route, prescriptions, significant lab abnormalities, going to OR and other per tinent info. @ -Discharge. Patient presented emergency department for evaluation of nausea and vomiting. Laboratory studies obtained revealing no significant leukocytosis; hemoglobin 10.7 which is likely physiologic due to . CMP shows sodium 134, otherwise unremarkable. UA shows no evidence of infectious process. Patient negative for COVID, influenza, RSV. Patient was provided IV n ormal saline, Zofran with improvement in symptoms. Vital signs are stable. The area in her groin was swabbed and sent for wound culture. Patient's antibiotic will be switched to include MRSA coverage. Advised her to follow-up with her MOTION GRAPHICS DESIGNER. She is understanding agreeable this plan. Patient stable at time of discharge. Case discussed with Dr. Medina Undiagnosed new problem with uncertain prognosis? @ -No Drug Therapy requiring intensive monitoring for toxicity (Heparin, Nitro, Insulin, Cardizem)? @ -No Were any procedures done? @ -No Diagnosis/symptom? @ -Abscess, nausea and vomiting Acute, or Chronic, or Acute on Chronic? @ -acute Uncomplicated (without systemic symptoms) or Complicated (systemic symptoms)? @ -uncomplicated Side effects of treatment? @ -No Exacerbation, Progression, or Severe Exacerbation? @ -No Poses a threat to life or bodily function? How? (Chest pain, [place], [place], pneumonia, PE, COPD, DKA, ARF, appy, cholecystitis, CVA, Diverticulitis, Homicidal, Suic idal, threat to staff... and all critical care pts) @ -No (Meri Cook) - Lab Data Lab Results 05/16/24 05/16/24 05/16/24 Range/Units 20:38 20:38 20:38 WBC 9.4 (3.8-10.6) k/uL RBC 3.68 L (3.80-5.40) m/uL Hgb 10.7 L (11.4-16.0) gm/dL Hct 31.2 L (34.0-46.0) % MCV 84.7 (80.0-100.0) fL MCH 29.1 (25.0-35.0) pg MCHC 34.4 (31.0-37.0) g/dL RDW 13.8 (11.5-15.5) % Plt Count 303 (150-450) k/uL MPV 7.0 Neutrophils % 71 % Lymphocytes % 21 % Monocytes % 5 % Eosinophils % 2 % Basophils % 0 % Neutrophils # 6.6 (1.3-7.7) k/uL Lymphocytes # 1.9 (1.0-4.8) k/uL Monocytes # 0.4 (0-1.0) k/uL Eosinophils # 0.2 (0-0.7) k/uL Basophils # 0.0 (0-0.2) k/uL Sodium 134 L (137-145) mmol/L Potassium 3.9 (3.5-5.1) mmol/L Chloride 98 (98-107) mmol/L Carbon Dioxide 28 (22-30) mmol/L Anion Gap 8 mmol/L BUN 5 L (7-17) mg/dL Creatinine 0.37 L (0.52-1.04) mg/dL Est GFR (CKD-EPI)AfAm >90 (>60 ml/min/1.73 sqM) Est GFR (CKD-EPI)NonAf >90 (>60 ml/min/1.73 sqM) Glucose 93 (74-99) mg/dL Calcium 9.4 (8.4-10.2) mg/dL Total Bilirubin 0.5 (0.2-1.3) mg/dL AST 24 (14-36) U/L ALT 22 (4-34) U/L Alkaline Phosphatase 102 (38-126) U/L Total Protein 7.5 (6.3-8.2) g/dL Albumin 3.8 (3.5-5.0) g/dL Amylase 49 (30-110) U/L Lipase 30 (23-300) U/L Urine Color Urine Appearance (Clear) Urine pH (5.0-8.0) Ur Specific [place] (1.001-1.035) Urine Protein (Negative) Urine Glucose (UA) (Negative) Urine Ketones (Negative) Urine Blood (Negative) Urine Nitrite (Negative) Urine Bilirubin (Negative) Urine Urobilinogen (<2.0) mg/dL Ur Leukocyte Esterase (Negative) Influenza Type A (PCR) Not Detected (Not Detectd) Influenza Type B (PCR) Not Detected (Not Detectd) RSV (PCR) Not Detected (Not Detectd) SARS-CoV-2 (PCR) Not Detected (Not Detectd) 05/16/24 Range/Units 21:14 WBC (3.8-10.6) k/uL RBC (3.80-5.40) m/uL Hgb (11.4-16.0) gm/dL Hct (34.0-46.0) % MCV (80.0-100.0) fL MCH (25.0-35.0) pg MCHC (31.0-37.0) g/dL RDW (11.5-15.5) % Plt Count (150-450) k/uL MPV Neutrophils % % Lymphocytes % % Monocytes % % Eosinophils % % Basophils % % Neutrophils # (1.3-7.7) k/uL Lymphocytes # (1.0-4.8) k/uL Monocytes # (0-1.0) k/uL Eosinophils # (0-0.7) k/uL Basophils # (0-0.2) k/uL Sodium (137-145) mmol/L Potassium (3.5-5.1) mmol/L Chloride (98-107) mmol/L Carbon Dioxide (22-30) mmol/L Anion Gap mmol/L BUN (7-17) mg/dL Creatinine (0.52-1.04) mg/dL Est GFR (CKD-EPI)AfAm (>60 ml/min/1.73 sqM) Est GFR (CKD-EPI)NonAf (>60 ml/min/1.73 sqM) Glucose (74-99) mg/dL Calcium (8.4-10.2) mg/dL Total Bilirubin (0.2-1.3) mg/dL AST (14-36) U/L ALT (4-34) U/L Alkaline Phosphatase (38-126) U/L Total Protein (6.3-8.2) g/dL Albumin (3.5-5.0) g/dL Amylase (30-110) U/L Lipase (23-300) U/L Urine Color Yellow Urine Appearance Clear (Clear) Urine pH 7.0 (5.0-8.0) Ur Specific [place] 1.016 (1.001-1.035) Urine Protein Negative (Negative) Urine Glucose (UA) Negative (Negative) Urine Ketones 1+ H (Negative) Urine Blood Negative (Negative) Urine Nitrite Negative (Negative) Urine Bilirubin Negative (Negative) Urine Urobilinogen 2.0 (<2.0) mg/dL Ur Leukocyte Esterase Negative (Negative) Influenza Type A (PCR) (Not Detectd) Influenza Type B (PCR) (Not Detectd) RSV (PCR) (Not Detectd) SARS-CoV-2 (PCR) (Not Detectd) Disposition <Ezequiel Wolf - Last Filed: 05/16/24 20:24> Is patient prescribed a controlled substance at d/c from ED?: No <Meri Cook - Last Filed: 05/22/24 01:43> Clinical Impression: Nausea & vomiting, Cellulitis Disposition: HOME SELF-CARE Condition: Stable Instructions (If sedation given, give patient instructions): Acute Nausea and Vomiting (ED) Additional Instructions: Please follow up with your MOTION GRAPHICS DESIGNER. Return to the emergency department for new or worsening symptoms. Prescriptions: clindamycin HCL 300 mg PO QID #40 cap Referrals: Janes Gracia MD [Primary Care Provider] - 1-2 days
[2024-05-16 20:50] LABS: Basophils % (A) 0 %; Eosinophils # (A) 0.2 k/uL (0-0.7); Eosinophils % (A) 2 %; HCT 31.2 % (34.0-46.0); HGB 10.7 gm/dL (11.4-16.0); Lymphocytes # (A) 1.9 k/uL (1.0-4.8); Lymphocytes % (A) 21 %; MCH 29.1 pg (25.0-35.0); MCHC 34.4 g/dL (31.0-37.0); MCV 84.7 fL (80.0-100.0); Monocytes # (A) 0.4 k/uL (0-1.0); Monocytes % (A) 5 %; Neutrophils # (A) 6.6 k/uL (1.3-7.7); Neutrophils % (A) 71 %; Platelet Count 303 k/uL (150-450); RBC 3.68 m/uL (3.80-5.40); RDW 13.8 % (11.5-15.5); WBC 9.4 k/uL (3.8-10.6)
[2024-05-16 21:05] LABS: ALT 22 U/L (4-34); AST 24 U/L (14-36); African American GFR (CKD) >90 (>60 ml/min/1.73 sqM); Albumin 3.8 g/dL (3.5-5.0); Alkaline Phosphatase 102 U/L (38-126); Amylase 49 U/L (30-110); Anion Gap 8 mmol/L; Blood Urea Nitrogen 5 mg/dL (7-17); Calcium 9.4 mg/dL (8.4-10.2); Carbon Dioxide 28 mmol/L (22-30); Chloride 98 mmol/L (98-107); Glucose 93 mg/dL (74-99); Lipase 30 U/L (23-300); Non-African American GFR(CKD) >90 (>60 ml/min/1.73 sqM); Potassium 3.9 mmol/L (3.5-5.1); Sodium 134 mmol/L (137-145); Total Bilirubin 0.5 mg/dL (0.2-1.3); Total Protein 7.5 g/dL (6.3-8.2)
[2024-05-16] MEDS: SODIUM CHLORIDE 0.9% 1,000 ML IV STA (21:06)
[2024-05-16] MEDS: ONDANSETRON 4 MG/2 ML VIAL IVP STA ×2 (21:07→22:33)
[2024-05-16 21:27] LABS: Influenza A Not Detected (Not Detectd); Influenza B Not Detected (Not Detectd); RSV Not Detected (Not Detectd)
[2024-05-16 21:40] LABS: Appearance,Urine Clear (Clear); Bilirubin,Urine Negative (Negative); Blood,Urine Negative (Negative); Color,Urine Yellow; Glucose,Urine (UA) Negative (Negative); Ketones,Urine 1+ (Negative); Leukocyte Esterase,Urine Negative (Negative); Nitrite,Urine Negative (Negative); Protein,Urine Negative (Negative); Specific Gravity,Urine 1.016 (1.001-1.035)
[2024-05-16 22:44] VITALS: BP 119/76; PULSE 16; RESP 16; TEMP 98.4
== END 2024-05-16 22:44 | disposition home or self-care (01) ==
LOC: EC 19:04
DX: O21.9 Vomiting of pregnancy, unspecified (principal); O99.711 Diseases of the skin and subcutaneous tissue complicating pregnancy, first trimester; L03.314 Cellulitis of groin; O99.331 Smoking (tobacco) complicating pregnancy, first trimester; F17.200 Nicotine dependence, unspecified, uncomplicated; Z88.0 Allergy status to penicillin; Z88.1 Allergy status to other antibiotic agents; Z88.2 Allergy status to sulfonamides; Z11.52 Encounter for screening for COVID-19; Z3A.12 12 weeks gestation of pregnancy
CPT/HCPCS: 36415; 80053; 82150; 83690; 85025; 81003; 87070; 87205; 87077; 87186; 87636; 99284; 96374; 96376; 96361 ×2; J2405